=== PATIENT | male | born 1985 | race Caucasian/White ===

== ENCOUNTER 2018-12-29 11:08 | Observation (INO) ==
[2018-12-29] MEDS ORDERED: SODIUM CHLORIDE 0.9% 1000ML 500 ML IV ONE (11:17)
[2018-12-29 11:38] LABS: Basophils # (auto) 0.02 K/uL (0-0.2); Basophils % (auto) 0.2 %; Eosinophils # (auto) 0.02 K/uL (0-0.5); Eosinophils % (auto) 0.2 %; Hematocrit (blood only) 38.7 % (42-52); Hemoglobin 13.5 g/dL (14.0-18.0); Immature Granulocytes # (auto) 0.04 K/uL (0.00-0.02); Immature Granulocytes % (auto) 0.4 %; Lymphocytes # (auto) 0.55 K/uL (1.2-3.4); Lymphocytes % (auto) 5.3 %; Mean Corpuscular Hgb Conc 34.9 g/dL (32-36); Mean Corpuscular Volume 85.1 fL (80-100); Mean Platelet Volume 11.3 fL (7.4-10.4); Monocytes # (auto) 0.28 K/uL (0.11-0.59); Monocytes % (auto) 2.7 %; Neutrophils # (auto) 9.47 K/uL (1.4-6.5); Neutrophils % (auto) 91.2 %; Platelet Count 177 K/uL (130-400); RDW Coefficient of Variation 13.7 % (11.5-14.5); RDW Standard Deviation 42.6 fL (36.4-46.3); Red Blood Count 4.55 M/uL (4.7-6.1); White Blood Count 10.38 K/uL (4.8-10.8)
--- NOTE | 2018-12-29 11:42 | XRay Report ---
XR chest 1V portable HISTORY: 33 years-old Male Chest Pain acute atypical chest pain COMPARISON: CT abdomen and pelvis 11/28/2018 TECHNIQUE: Portable AP view of the chest FINDINGS: The cardiac silhouette is normal. Mild asymmetric prominence of the right hilum. Right internal jugul ar Ovxvgv-e-Qzqm catheter is noted with distal tip terminating in the expected location of the proxim al SVC. No pneumothorax, pleural effusion, focal airspace consolidation or overt pulmonary edema. Bon es appear grossly intact. IMPRESSION: 1. Mild asymmetric right hilar prominence may be projectional. Underlying adenopathy is also within t he differential. 2. Study is otherwise unremarkable. The above report was generated using voice recognition software. It may contain grammatical, syntax o r spelling errors. Electronically signed by: Nick May M.D. 12/29/2018 11:41 AM
[2018-12-29 11:56] LABS: Alanine Aminotransferase 37 U/L (12-78); Albumin Level 3.4 gm/dl (3.4-5.0); Aspartate Aminotransferase 28 U/L (15-37); BUN Creatinine Ratio 23.7 (10-20); Blood Urea Nitrogen 15 mg/dl (7-18); Calcium 8.6 mg/dl (8.5-10.1); Carbon Dioxide 20 mmol/L (21-32); Chloride 103 mmol/L (98-107); Creatinine Clr Calc Pharmacy 211.4 ml/min; Est GFR (African American) > 150.0; Est GFR (Non-African American) 129.5; Glucose 87 mg/dl (70-99); Potassium 3.7 mmol/L (3.5-5.1); Sodium 138 mmol/L (136-145)
[2018-12-29 12:07] LABS: Albumin Globulin Ratio 1.1 (0.9-2); Alkaline Phosphatase 263 U/L (45-117); Bilirubin,Total 0.7 mg/dl (0.2-1); Globulin 3.1 gm/dl (2.5-4.0); Total Protein 6.5 gm/dl (6.4-8.2); Troponin I < 0.015 ng/ml (0-0.045)
[2018-12-29] MEDS ORDERED: OXYCODONE HCL IR 5 MG TAB (IMMEDIATE RELEASE) PO STA (13:32)
[2018-12-29 14:01] LABS: INR 1.1 (0.9-1.1); Partial Thromboplastin Time 28.3 Seconds (21.0-31.0); Prothrombin Time 11.4 Seconds (9.0-12.0)
--- NOTE | 2018-12-29 14:07 | History & Physical Report ---
Date of Service December 29, 2018 Assessment & Plan (1) Paroxysmal supraventricular tachycardia: This is a 33yo M with a PMH of recent pancreatic cancer diagnosis with peritoneal mets who presents from outpatient surgery after an episode of SVT that has since resolved. -Found to have HR of 136 with EKG thought to be SVT -Given Labetalol, amiodarone and Cardizem before adenosine was tried and patient converted to normal sinus rhythm -Asymptomatic now. Possibly an effect of anesthetic given for port placement -Observe on telemetry overnight -2D echo ordered. Routine cardiology consult to discuss possibility of anticoagulation in setting of active cancer (2) Pancreatic cancer metastasized to intra-abdominal lymph node: Pancreatic tumor found on imaging in late November, EUS performed at the beginning of December with cytology was consistent with poorly differentiated adenocarcinoma of the pancreas -Has plans to start systemic chemotherapy with modified FOLFIRINOX -Follows with Dr. Roberts of [facility] -Continue home pain medication Oxycodone 5mg Q4H PRN -Full liquid diet, Boost TIDM Code status: FULL PCP: Becca Dispo: [facility]. Plan to return home once medically stable. Patient seen in collaboration with Dr. Mayer. Please see addendum. History of Present Illness Chief Complaint: SVT post-operatively Primary Care Provider: Gustavo Hudson MD This is a 33yo M with a PMH of recent pancreatic cancer diagnosis with peritoneal mets who presents from outpatient surgery after an episode of tachycardia. Patient was having Aport placed at [facility]. Became tachycardic following procedure and an EKG revealed SVT. Received Labetalol, amiodarone and cardizem before adenosine was tried and patient converted to normal sinus rhythm. Patient was brought to the ED for further treatment and evaluation. Was found to have pancreatic tumor on EUS at the beginning of this month. Cytology was consistent with poorly differentiated adenocarcinoma of the pancreas. Has plans to start systemic chemotherapy with modified FOLFIRINOX. Follows with Dr. [facility]. Denies any history of cardiac arrhythmias. No surgical history prior to port insertion. Denies fever, chills, headache, lightheadedness, sore throat, cough, chest pain, palpitations, shortness of breath, nausea, vomiting, dysuria, constipation or diarrhea. Has pain with eating any type of solid foods so has been supplementing with liquids and protein shakes. Current pain regimen includes Oxycodone 5mg Q4H PRN. Allergies Allergy/AdvReac Type Severity Reaction Status Date / Time No Known Allergies Allergy Verified 12/29/18 12:00 Home Medications Home Medications Medication Instructions Recorded Confirmed Type dicyclomine 10 mg PO TID PRN 12/01/18 12/29/18 History acetaminophen [Tylenol Extra 2,000 mg PO Q6H PRN 12/29/18 12/29/18 History Strength] omeprazole 40 mg PO DAILY PRN 12/29/18 12/29/18 History oxycodone 5 mg PO Q4H PRN 12/29/18 12/29/18 History polyethylene glycol 3350 [Miralax] 17 g PO DAILY PRN 12/29/18 12/29/18 History sucralfate 1 g PO BID 12/29/18 12/29/18 History Past Med/Surg History Medical History Pancreatic cancer metastasized to intra-abdominal lymph node (Chronic) Abnormal CT of the abdomen (Chronic) Done for LLQ pain evaluation. Showed innumerable peritoneal and mesenteric nodules. Possible pancreatitis, possible diverticulitis, though both ruled "unlikely" per radiology. Surgical History No pertinent past surgical history (Chronic) Family History Father FHx: coronary artery disease, Onset Age: 65 CABG X3 Grandfather (Maternal) Colorectal cancer Grandmother (Maternal) Breast cancer Social History Preferred Language: Thai Communication Ability: Effective Beliefs That Will Affect Care: None Current Living Situation: Significant Other Other Information That Helps Us Care for You: No Feels Safe at Home: Yes Safety Concerns: Feels Safe At This Time Smoking Status: Never smoker Second Hand Exposure: No Hx Alcohol Use: Yes Alcohol type: beer Hx Substance Use: No Review of Systems Review of Systems: At least ten systems reviewed and negative except as noted in the HPI. Physical Exam Physical Exam: General Appearance: WD/WN, no apparent distress, resting comforably Head: normocephalic, atraumatic Eyes: normal inspection, PERRL, EOMI ENT: hearing grossly normal, pharynx normal (dry mucous membranes) Neck: supple, no JVD, no adenopathy Respiratory/Chest: Port placement R chest wall. Lungs clear to auscultation. No wheezes, rales or rhonci. No respiratory distress or accessory muscle use Cardiovascular: regular rate, rhythm, no murmur, normal peripheral pulses Abdomen/GI: normal bowel sounds, soft, non-tender to palpation Extremities/Musculoskelatal: normal inspection, no calf tenderness, normal capillary refill, no pedal edema Neurologic/Psych: alert, normal mood/affect, oriented x 3 Skin: normal color, warm/dry Results & Data Vital Signs (Past 12 Hours) Vital Signs Temp Pulse Resp BP Pulse Ox 12/29/18 13:31 95 H 18 128/93 12/29/18 13:30 96 H 24 12/29/18 13:00 85 18 136/82 12/29/18 12:30 85 18 129/80 94 12/29/18 12:00 84 19 119/77 96 12/29/18 11:38 98 12/29/18 11:32 84 18 95 12/29/18 11:31 84 21 140/85 95 12/29/18 11:30 86 18 96 12/29/18 11:26 87 97 12/29/18 11:16 37.0 C 84 16 138/83 94 12/29/18 11:15 87 15 96 12/29/18 11:13 85 20 138/83 97 Laboratory Results Short CBC 12/29/18 Range/Units 11:15 WBC 10.38 (4.8-10.8) K/uL Hgb 13.5 L (14.0-18.0) g/dL Hct 38.7 L (42-52) % Plt Count 177 (130-400) K/uL BMP 12/29/18 11:15 Sodium 138 Potassium 3.7 Chloride 103 Carbon Dioxide 20 L BUN 15 Creatinine 0.63 Glucose 87 Calcium 8.6 Cardiac Enzymes 12/29/18 Range/Units 11:15 Troponin I < 0.015 (0-0.045) ng/ml Liver Function 12/29/18 Range/Units 11:15 Total Bilirubin 0.7 (0.2-1) mg/dl AST 28 (15-37) U/L ALT 37 (12-78) U/L Alkaline Phosphatase 263 H (45-117) U/L Albumin 3.4 (3.4-5.0) gm/dl Diagnostic Findings CXR: IMPRESSION: 1. Mild asymmetric right hilar prominence may be projectional. Underlying adenopathy is also within the differential. 2. Study is otherwise unremarkable. ECG Rhythm: normal sinus Findings: + nonspecific-ST abn Supervising Physician Co-Signing Physician Notes I have seen and examined the patient with physician dairy and food laboratory assistant and agree with the assessment and plan as above and would like to comment that during outpatient placement of port placement with plans for chemotherapy because of pancreatitic cancer, the patient likely had SVT secondary to anesthesia. multiple medications were given to attempt to break the SVT in the immediate post-op care: Labetalol, amiodarone and Cardizem before adenosine tried which converted patient in sinus rhythm. patient continues to be in sinus rhythm at this time. is placed on observation on telemetry in case patient has any other runs of arrhythmia. echocardiogram and cardiology consult have been requested. if patient continues to be in rhythm, it is unlikely that he would be placed on systemic anticoagulation On exam General: no acute distress Lungs: clear to auscultation bilaterally, no wheezing abdomen: soft,nontender, positive bowel sounds Extremities: move all extremities neuro: no cranial nerve deficits, patient has right eye droop that is chronic agree with other assessment and plans as documented by physician dairy and food laboratory assistant
--- NOTE | 2018-12-29 14:47 | Emergency Department Note ---
Entered by Vanessa Srinivasan acting as a scribe for History of Present Illness General Chief complaint: Cardiac Assessment Stated complaint: svt/aflut Time Seen by Provider: 12/29/18 11:16 Source: patient and EMS Mode of arrival: EMS Limitations: no limitations History of Present Illness Provider complaint: SVT Onset (ago): hour(s) (OXYGEN SYSTEM TESTER) Location: chest Pain Consistency: + other (episode) Quality: + other (SVT) Relieved By: + medication Treatments prior to arrival: other (adenosine, cardizem, labetalol) The patient is a 33 year old male who presents to the Emergency Room via EMS f ollowing an episode of SVT that occurred OXYGEN SYSTEM TESTER. The patient reports that he has a history of metastatic pancreatic cancer and that he did have a port placed this morning at [facility]. He explains that there were no complications but that following the surgery, he had complex tachycardia. EMS notes that they did obtain an EKG which showed SVT. They explain that he was then referred to the ER. Per EMS, the patient was given adenosine, Cardizem and labetalol which did help. Home Medications Home Medications Medication Instructions Recorded Confirmed Type dicyclomine 10 mg PO TID PRN 12/01/18 12/29/18 History acetaminophen [Tylenol Extra 2,000 mg PO Q6H PRN 12/29/18 12/29/18 History Strength] omeprazole 40 mg PO DAILY PRN 12/29/18 12/29/18 History oxycodone 5 mg PO Q4H PRN 12/29/18 12/29/18 History polyethylene glycol 3350 [Miralax] 17 g PO DAILY PRN 12/29/18 12/29/18 History sucralfate 1 g PO BID 12/29/18 12/29/18 History Allergies Allergy/AdvReac Type Severity Reaction Status Date / Time No Known Allergies Allergy Verified 12/29/18 12:00 Past Med/Surg History Medical History Pancreatic cancer Abnormal CT of the abdomen Done for LLQ pain evaluation. Showed innumerable peritoneal and mesenteric nodules. Possible pancreatitis, possible diverticulitis, though both ruled "unlikely" per radiology. Diverticular disease POSSIBLE. Pancreatitis POSSIBLE. Surgical History No history of previous surgery Family History Father FHx: coronary artery disease, Onset Age: 65 CABG X3 Social History Preferred Language: Arabic Communication Ability: Effective Beliefs That Will Affect Care: None Current Living Situation: Significant Other Other Information That Helps Us Care for You: No Feels Safe at Home: Yes Safety Concerns: Feels Safe At This Time Smoking Status: Never smoker Second Hand Exposure: No Hx Alcohol Use: Yes Alcohol type: beer Hx Substance Use: No Review of Systems See HPI for pertinent positives & negatives. and A total of 10 systems reviewed and were otherwise negative Physical Exam Vital Signs Vital Signs - 24 hr 12/29/18 11:13 12/29/18 11:15 12/29/18 11:16 Temperature 37.0 C Temperature Source Oral Sepsis Recent Fever Within 48 Hours No Sepsis Action Taken by Nursing No Action Required Pulse Rate 85 87 84 Pulse Rate from SpO2 Sensor 85 88 Pulse Rhythm Respiratory Rate 20 15 16 Respiratory Effort / Characteristics Respiratory Depth Respiratory Pattern Blood Pressure 138/83 138/83 Blood Pressure Mean 101 101 Pulse Oximetry 97 96 94 Oxygen Delivery Method Room Air 12/29/18 11:26 12/29/18 11:30 12/29/18 11:31 Temperature Temperature Source Sepsis Recent Fever Within 48 Hours Sepsis Action Taken by Nursing Pulse Rate 87 86 84 Pulse Rate from SpO2 Sensor 85 84 Pulse Rhythm Regular Respiratory Rate 18 21 Respiratory Effort / Characteristics Respiratory Depth Respiratory Pattern Blood Pressure 140/85 Blood Pressure Mean 103 Pulse Oximetry 97 96 95 Oxygen Delivery Method Room Air 12/29/18 11:32 12/29/18 11:38 12/29/18 12:00 Temperature Temperature Source Sepsis Recent Fever Within 48 Hours Sepsis Action Taken by Nursing Pulse Rate 84 84 Pulse Rate from SpO2 Sensor 84 84 Pulse Rhythm Respiratory Rate 18 19 Respiratory Effort / Characteristics Respiratory Depth Respiratory Pattern Blood Pressure 119/77 Blood Pressure Mean 91 Pulse Oximetry 95 98 96 Oxygen Delivery Method Room Air 12/29/18 12:30 12/29/18 13:00 12/29/18 13:30 Temperature Temperature Source Sepsis Recent Fever Within 48 Hours Sepsis Action Taken by Nursing Pulse Rate 85 85 96 H Pulse Rate from SpO2 Sensor 84 Pulse Rhythm Respiratory Rate 18 18 24 Respiratory Effort / Characteristics Respiratory Depth Respiratory Pattern Blood Pressure 129/80 136/82 Blood Pressure Mean 96 100 Pulse Oximetry 94 Oxygen Delivery Method 12/29/18 13:31 12/29/18 14:04 Temperature Temperature Source Sepsis Recent Fever Within 48 Hours Sepsis Action Taken by Nursing Pulse Rate 95 H Pulse Rate from SpO2 Sensor Pulse Rhythm Respiratory Rate 18 Respiratory Effort / Characteristics Non-Labored Spontaneous Respiratory Depth Normal Respiratory Pattern Regular Blood Pressure 128/93 Blood Pressure Mean 104 Pulse Oximetry Oxygen Delivery Method Room Air General: Non-ill appearing young male in no acute distress. HEENT: Normal cephalic atraumatic. Pupils are equal round and reactive to light. Extraocular movements are intact. Oropharynx is pink with moist mucous membranes. No swelling of the mouth lips or tongue. Neck: Supple with a midline trachea. No meningeal signs or stiffness, no JVD or bruits. No Stridor. Chest: Clear to auscultation bilaterally. No wheezes or rhonchi. No increased wo rk of breathing. Bandage in right upper chest from port placement today. Heart: regular rate and rhythm. Abdomen: Soft nontender, nondistended without rebound guarding or rigidity. Extremities: No cyanosis clubbing or edema. No calf tenderness or asymmetry Spine/Back. Non tender to palpation. No CVA tenderness Skin: Good turgor without rashes. Neurologic exam: Cranial nerves two through 12 are intact. Motor and sensation are intact and symmetrical throughout. Course 1109: Past medical records reviewed. The patient was evaluated in room A10. A complete history and physical examination was performed. 1227: I reviewed the patient's case with Magalis Garcia PA-C - [facility] Hospitalist. She will evaluate the patient for further management. Administered Medications Discontinued Medications Sodium Chloride (Nss 1000ml) 500 mls @ 999 mls/hr IV .Q31M ONE Stop: 12/29/18 11:47 Last Infusion: 12/29/18 12:04 Dose: 0 mls/hr Documented by: [id number] Admin: 12/29/18 11:31 Dose: 999 mls/hr Documented by: [id number] Oxycodone HCl (Roxicodone Immediate Rel) 5 mg PO NOW STA Stop: 12/29/18 13:33 Last Admin: 12/29/18 13:47 Dose: 5 mg Documented by: [id number] Medical Decision Making Differential Diagnosis Differential diagnosis includes: acute coronary syndrome, arrhythmia, melvin ctrolyte and metabolic abnormality. Medical Records Attestation: I reviewed the patient's medical records. Home Medications Current Medication List: was personally reviewed by me Laboratory Data Attestation: I reviewed the patient's lab results. Result diagrams: 12/29/18 11:15 12/29/18 11:15 Lab Results 12/29/18 12/29/18 Range/Units 11:15 11:15 WBC 10.38 (4.8-10.8) K/uL RBC 4.55 L (4.7-6.1) M/uL Hgb 13.5 L (14.0-18.0) g/dL Hct 38.7 L (42-52) % MCV 85.1 (80-100) fL MCH 29.7 (25-34) pg MCHC 34.9 (32-36) g/dL RDW Std Deviation 42.6 (36.4-46.3) fL RDW Coeff of Jennie 13.7 (11.5-14.5) % Plt Count 177 (130-400) K/uL MPV 11.3 H (7.4-10.4) fL Immature Gran % (Auto) 0.4 % Neut % (Auto) 91.2 % Lymph % (Auto) 5.3 % [place] % (Auto) 2.7 % Eos % (Auto) 0.2 % Baso % (Auto) 0.2 % Immature Gran # (Auto) 0.04 H (0.00-0.02) K/uL Neut # (Auto) 9.47 H (1.4-6.5) K/uL Lymph # (Auto) 0.55 L (1.2-3.4) K/uL [place] # (Auto) 0.28 (0.11-0.59) K/uL Eos # (Auto) 0.02 (0-0.5) K/uL Baso # (Auto) 0.02 (0-0.2) K/uL Sodium 138 (136-145) mmol/L Potassium 3.7 (3.5-5.1) mmol/L Chloride 103 (98-107) mmol/L Carbon Dioxide 20 L (21-32) mmol/L Anion Gap 15.0 H (3-11) BUN 15 (7-18) mg/dl Creatinine 0.63 (0.6-1.4) mg/dl Est Cr Clr Drug Dosing 211.4 ml/min Est GFR ( Amer) > 150.0 Est GFR (Non-Af Amer) 129.5 BUN/Creatinine Ratio 23.7 H (10-20) Glucose 87 (70-99) mg/dl Calcium 8.6 (8.5-10.1) mg/dl Total Bilirubin 0.7 (0.2-1) mg/dl AST 28 (15-37) U/L ALT 37 (12-78) U/L Alkaline Phosphatase 263 H (45-117) U/L Troponin I < 0.015 (0-0.045) ng/ml Total Protein 6.5 (6.4-8.2) gm/dl Albumin 3.4 (3.4-5.0) gm/dl Globulin 3.1 (2.5-4.0) gm/dl Albumin/Globulin Ratio 1.1 (0.9-2) Lipase 97 (73-393) U/L TSH 1.710 (0.300-4.500) uIu/ml Imaging Data Radiologist's Impression: Radiology results as stated below per my review and the radiologist's interpretation: XR chest 1V portable HISTORY: 33 years-old Male Chest Pain acute atypical chest pain COMPARISON: CT abdomen and pelvis 11/28/2018 TECHNIQUE: Portable AP view of the chest FINDINGS: The cardiac silhouette is normal. Mild asymmetric prominence of the right hilum. Right internal jugular Dsmncn-v-Smdh catheter is noted with distal tip terminating in the expected location of the proximal SVC. No pneumothorax, pleural effusion, focal airspace consolidation or overt pulmonary edema. Bones appear grossly intact. IMPRESSION: 1. Mild asymmetric right hilar prominence may be projectional. Underlying a denopathy is also within the differential. 2. Study is otherwise unremarkable. The above report was generated using voice recognition software. It may contain grammatical, syntax or spelling errors. Electronically signed by: Nick May M.D. 12/29/2018 11:41 AM ECG Data Attestation: I personally reviewed and interpreted this ECG as follows: Indication: tachycardia Rate (beats per minute): 88 Rhythm: normal sinus Findings: + other (non-specific T wave abnormality); no ectopy Comparison ECG Date: no prior available Blood Pressure Blood Pressure Findings: Normal blood pressure Blood Pressure Disposition: did not require urgent referral MDM Narrative This patient comes in as described above. The paramedics call and talk to me for medical command. Apparently he just had a port placed today and had anesthesia. After anesthesia he was tachycardic and was given labetalol 100 mg, loaded with IV amiodarone, and was also given IV Cardizem. Despite this the patient remained tachycardic they transmitted me the EKG and it is a regular narrow complex tachycardia consistent with PSVT in light of this and I recommended that they give him adenosine 6 mg IV. They had already tried vagal maneuvers. This worked and the patient converted. He has remained stable. He has had no chest pain or shortness of breath at any point even when his heart rate was fast. He has no significant electrolyte or metabolic abnormalities. Chest x-ray was clear and there is no pneumothorax. His EKG says some nonspecific T wave abnormalities. Given the patient has been loaded with multiple cardiac meds and had this event. I do think it is most prudent to o bserve him to rule out any other cardiac or other etiology causing his symptoms. Again, hiss asymptomatic and has no chest pain or shortness of breath. I think pulmonary embolism will be unlikely. I have consult the [facility] see him in the ER for these measures. Impression & Plan Paroxysmal supraventricular tachycardia, Pancreatic cancer Discharge Plan Visit Data Chief Complaint: Cardiac Assessment Stated Complaint: svt/aflut ED Provider: Seb Alexander Discharge Problem: Paroxysmal supraventricular tachycardia, Pancreatic cancer Patient Disposition: Being Evaluated by Hospitalist Forms Stand Alone Forms: My [facility] Prescriptions Prescriptions: No Action dicyclomine 10 mg Capsule 10 mg PO TID PRN (Reason: STOMACH PAIN) RF: 0 polyethylene glycol 3350 [Miralax] 17 gram Powder In Packet 17 g PO DAILY PRN (Reason: Constipation) RF: 0 sucralfate 1 gram tablet 1 g PO BID RF: 0 acetaminophen [Tylenol Extra Strength] 500 mg Tablet 2,000 mg PO Q6H PRN (Reason: Pain) RF: 0 oxycodone 5 mg Tablet 5 mg PO Q4H PRN (Reason: Pain) RF: 0 omeprazole 40 mg capsule,delayed release(DR/EC) 40 mg PO DAILY PRN (Reason: Dyspepsia) RF: 0 Referrals Referrals: uGstavo Hudson MD [Primary Care Provider] - The scribe's documentation has been prepared under my direction and personally reviewed by me in its entirety. I confirm that the note above accurately reflect s all work, treatment, procedures, and medical decision making performed by me.
[2018-12-29] MEDS ORDERED: POLYETHYLENE (MIRALAX) 17 GM PACK PO PRN (15:54)
[2018-12-29] MEDS ORDERED: ACETAMINOPHEN 500 MG TAB PO PRN (15:54)
[2018-12-29] MEDS ORDERED: DICYCLOMINE HCL 10 MG CAP PO PRN (15:54)
[2018-12-29] MEDS ORDERED: ONDANSETRON INJ 2 MG/ML 2 ML VIAL IV PRN (15:54)
[2018-12-29] MEDS ORDERED: SODIUM CHLORIDE 0.9% 1000ML 1,000 ML IV SCH (16:10)
[2018-12-29] MEDS: OXYCODONE HCL IR 5 MG TAB (IMMEDIATE RELEASE) PO PRN ×2 (17:21→21:19)
[2018-12-29] MEDS: IBUPROFEN 200 MG TAB PO PRN (21:19)
[2018-12-29] MEDS: SUCRALFATE 1 GM TAB PO SCH (21:20)
[2018-12-30] MEDS: OXYCODONE HCL IR 5 MG TAB (IMMEDIATE RELEASE) PO PRN ×2 (01:49→06:44)
[2018-12-30] MEDS: IBUPROFEN 200 MG TAB PO PRN ×2 (04:41→11:22)
[2018-12-30] MEDS: SUCRALFATE 1 GM TAB PO SCH (07:47)
[2018-12-30 08:30] LABS: Hematocrit (blood only) 38.1 % (42-52); Hemoglobin 13.1 g/dL (14.0-18.0); Mean Corpuscular Hgb Conc 34.4 g/dL (32-36); Mean Corpuscular Volume 84.7 fL (80-100); Mean Platelet Volume 11.6 fL (7.4-10.4); Platelet Count 186 K/uL (130-400); RDW Coefficient of Variation 13.9 % (11.5-14.5); White Blood Count 9.02 K/uL (4.8-10.8)
[2018-12-30 08:59] LABS: BUN Creatinine Ratio 21.1 (10-20); Blood Urea Nitrogen 12 mg/dl (7-18); Calcium 9.1 mg/dl (8.5-10.1); Carbon Dioxide 26 mmol/L (21-32); Chloride 101 mmol/L (98-107); Creatinine Clr Calc Pharmacy 222.1 ml/min; Est GFR (African American) > 150.0; Est GFR (Non-African American) 136.9; Glucose 90 mg/dl (70-99); Potassium 3.8 mmol/L (3.5-5.1); Sodium 136 mmol/L (136-145)
[2018-12-30] MEDS ORDERED: PANTOprazole 40 MG TAB PO SCH (09:00)
--- NOTE | 2018-12-30 10:22 | Cardiology Consultation ---
Date of Consultation December 30, 2018 Assessment & Plan (1) Paroxysmal supraventricular tachycardia: (2) Abnormal ECG: (3) Elevated heart rate with elevated blood pressure without diagnosis of hypertension: Patient admitted with diagnosis of paroxysmal supraventricular tachycardia, however, ECG nor telemetry strip was recorded during time of dysrhythmia. Dysrhythmia possibly induced with anesthesia or perhaps with insertion of central venous catheter. No recurrent dysrhythmias since adm ission. Borderline elevated heart rate and mildly elevated blood pressure I suspect related to chronic low back and abdominal discomfort. Recommend beta- jorge therapy, metoprolol 25 mg twice daily. Without a confirmed diagnosis of atrial fibrillation or atrial flutter there is no indication for anticoagulation from a cardiovascular perspective at this time. Serum magnesium level ordered. Give 20 mEq of potassium now to maintain a serum potassium level greater than 4.0. Recommend outpatient cardiology follow-up in 2 weeks for reassessment. Thank you for allowing to participate in the care of your patient. History of Present Illness Reason for Consultation: PSVT Requesting Physician: Dr. Gabo Mayer Attending Physician: Gabo Mayer MD History of Present Illness 33-year-old male recently diagnosed with pancreatic cancer. Patient undergoing chemo port placement yesterday where he reportedly developed PSVT while under anesthesia. Per records, treated with labetalol, esmolol, adenosine, and amiodarone. Sinus rhythm upon arrival to the ER. Mildly hypertensive. Denies prior history of palpitations, lightheadedness, dizziness, chest discomfort, or unusual shortness of breath. No prior history of dysrhythmia, coronary disease, congestive heart failure, or rheumatic fever as a child. Preliminary review of resting 2D transthoracic echocardiogram demonstrates preserved LV systolic function, normal chamber size, no significant valvular abnormalities. Patient currently resting comfortably and asymptomatic. TSH and electrolytes within normal limits however magnesium was not assessed. Troponin negative x1 set. ECG demonstrates diffuse nonspecific T wave abnormality. No old ECG for comparison. Currently asymptomatic from a cardiovascular standpoint. Reports chronic lumbar pain related to pancreatic cancer. Sleeps on a heating pad. Can tolerate a liquid diet although notes a continuous low level of abdominal and low back discomfort. Allergies Allergy/AdvReac Type Severity Reaction Status Date / Time No Known Allergies Allergy Verified 12/29/18 12:00 Home Medications Home Medications Medication Instructions Recorded Confirmed Type dicyclomine 10 mg PO TID PRN 12/01/18 12/29/18 History acetaminophen [Tylenol Extra 2,000 mg PO Q6H PRN 12/29/18 12/29/18 History Strength] omeprazole 40 mg PO DAILY PRN 12/29/18 12/29/18 History oxycodone 5 mg PO Q4H PRN 12/29/18 12/29/18 History polyethylene glycol 3350 [Miralax] 17 g PO DAILY PRN 12/29/18 12/29/18 History sucralfate 1 g PO BID 12/29/18 12/29/18 History metoprolol tartrate 25 mg PO BID 30 Days #60 tab 12/30/18 Rx Patient History Medical History Pancreatic cancer metastasized to intra-abdominal lymph node (Chronic) Abnormal CT of the abdomen (Chronic) Done for LLQ pain evaluation. Showed innumerable peritoneal and mesenteric nodules. Possible pancreatitis, possible diverticulitis, though both ruled "unlikely" per radiology. Surgical History No pertinent past surgical history (Chronic) Family History Father FHx: coronary artery disease, Onset Age: 65 CABG X3 Grandfather (Maternal) Colorectal cancer Grandmother (Maternal) Breast cancer Social History Preferred Language: Persian Communication Ability: Effective Beliefs That Will Affect Care: None Current Living Situation: Significant Other Other Information That Helps Us Care for You: No Feels Safe at Home: Yes Safety Concerns: Feels Safe At This Time Smoking Status: Never smoker Second Hand Exposure: No Hx Alcohol Use: Yes Alcohol type: beer Hx Substance Use: No Physical Exam Physical Exam: General: NAD, AAO x3, well nourished. HEENT: Normocephalic. Atraumatic. Conjunctiva pink, no scleral icterus. Neck: No carotid bruits, the carotid upstrokes are brisk. No JVD. No HJR Heart: Regular normal S-1 and S-2 no S-3 or S-4 gallop. No murmurs or rub appreciated. PMI is not displaced. No RV heave. Lungs: Clear bilateral without rales , rhonchi, or wheeze. Abdomen: Diffuse tenderness, normal bowel sounds. Soft. No masses or organomegaly. No abdominal bruits. Extremities: No clubbing, cyanosis, or edema. Pulses: radial=2/4, Dorsalis pedis =2/4, posterior tibial=2/4. Neuro: Cranial nerves grossly intact. No focal motor deficit. Results & Data Vital Signs (Past 12 Hours) Vital Signs Temp Pulse Pulse Resp BP BP Pulse Ox 12/30/18 08:33 86 12/30/18 08:00 36.5 C 90 19 153/104 H 99 12/30/18 03:59 36.8 C 81 16 154/99 H 97 12/30/18 01:58 86 12/29/18 23:08 36.8 C 87 18 165/108 H 97 Laboratory Results Laboratory Results - last 24 hr 12/29/18 12/29/18 12/29/18 11:15 11:15 11:15 WBC 10.38 RBC 4.55 L Hgb 13.5 L Hct 38.7 L MCV 85.1 MCH 29.7 MCHC 34.9 RDW Std Deviation 42.6 RDW Coeff of Jennie 13.7 Plt Count 177 MPV 11.3 H Immature Gran % (Auto) 0.4 Neut % (Auto) 91.2 Lymph % (Auto) 5.3 Merrick % (Auto) 2.7 Eos % (Auto) 0.2 Baso % (Auto) 0.2 Immature Gran # (Auto) 0.04 H Neut # (Auto) 9.47 H Lymph # (Auto) 0.55 L Merrick # (Auto) 0.28 Eos # (Auto) 0.02 Baso # (Auto) 0.02 PT 11.4 INR 1.1 APTT 28.3 PTT Ratio 1.0 Sodium 138 Potassium 3.7 Chloride 103 Carbon Dioxide 20 L Anion Gap 15.0 H BUN 15 Creatinine 0.63 Est Cr Clr Drug Dosing 211.4 Est GFR ( Amer) > 150.0 Est GFR (Non-Af Amer) 129.5 BUN/Creatinine Ratio 23.7 H Glucose 87 Calcium 8.6 Total Bilirubin 0.7 AST 28 ALT 37 Alkaline Phosphatase 263 H Troponin I < 0.015 Total Protein 6.5 Albumin 3.4 Globulin 3.1 Albumin/Globulin Ratio 1.1 Lipase 97 TSH 1.710 12/30/18 12/30/18 07:47 07:47 WBC 9.02 RBC 4.50 L Hgb 13.1 L Hct 38.1 L MCV 84.7 MCH 29.1 MCHC 34.4 RDW Std Deviation 43.0 RDW Coeff of Jennie 13.9 Plt Count 186 MPV 11.6 H Immature Gran % (Auto) Neut % (Auto) Lymph % (Auto) Merrick % (Auto) Eos % (Auto) Baso % (Auto) Immature Gran # (Auto) Neut # (Auto) Lymph # (Auto) Merrick # (Auto) Eos # (Auto) Baso # (Auto) PT INR APTT PTT Ratio Sodium 136 Potassium 3.8 Chloride 101 Carbon Dioxide 26 Anion Gap 9.0 BUN 12 Creatinine 0.55 L Est Cr Clr Drug Dosing 222.1 Est GFR ( Amer) > 150.0 Est GFR (Non-Af Amer) 136.9 BUN/Creatinine Ratio 21.1 H Glucose 90 Calcium 9.1 Total Bilirubin AST ALT Alkaline Phosphatase Troponin I Total Protein Albumin Globulin Albumin/Globulin Ratio Lipase TSH
[2018-12-30] MEDS ORDERED: METOPROLOL TARTRATE 25 MG TAB PO SCH (10:30)
[2018-12-30] MEDS: POTASSIUM CHLORIDE / WTR 10 MEQ/100 ML PLCT IV SCH ×2 (11:00→11:52)
--- NOTE | 2018-12-30 12:02 | Hospitalist Progress Note ---
Date of Service December 30, 2018 Assessment & Plan (1) Paroxysmal supraventricular tachycardia: - 33yo M with a PMH of recent pancreatic cancer diagnosis with peritoneal mets who presents from outpatient surgery after an episode of tachycardia. Patient was having Aport placed at [facility]. Became tachycardic following procedure and an EKG revealed SVT. Found to have HR of 136 with EKG thought to be SVT. Received Labetalol, amiodarone and cardizem before adenosine was tried and patient converted to normal sinus rhythm. Patient was brought to the ED for further treatment and evaluation. -as per cardiology service Dysrhythmia possibly induced with anesthesia or perhaps with insertion of central venous catheter. No recurrent dysrhythmias since admission. -echocardiogram with normal ejection fraction -cardiology service started metoprolol 25 mg twice daily -Serum magnesium level is normal -cardiology service also gave 20 mEq of potassium -Discharge to home Patient should follow up with primary care doctor -Patient should call to confirm availability of cardiology appointment (Dr. Vazquez recommend 2 week followup and being worked on by [facility] scheduling line) [facility] Address: [address] [place] [address], [place] [address] (2) Pancreatic cancer metastasized to intra-abdominal lymph node: Pancreatic tumor found on imaging in late November, EUS performed at the beginning of December with cytology was consistent with poorly differentiated adenocarcinoma of the pancreas -Has plans to start systemic chemotherapy with modified FOLFIRINOX -Follows with Dr. Roberts of [facility] onc group -next Oncology follow up 01/02/2019 4:00 PM Provider Lashawn Gandhi MS Department Hematology/Oncology, [facility] Other appointments 01/20/2019 1:00 PM Provider Annmarie Robbins MD Department Dermatology [facility] Discharge Diagnosis Paroxysmal supraventricular tachycardia, Pancreatic cancer Subjective patients heart rate in the 80 beats per minute. patient denies lightheadedness of dizziness. normal sinus on telemetry monitoring. we discussed cardiology recommendations and discharge plan. no acute pain at this time. breathing comfortably on room air. no vomiting from the liquid diet Physical Exam Constitutional: WD/WN, vitals as above Eyes: PERRL, conjunctivae normal, anicteric sclerae EOM intact bilaterally Neck: trachea midline, no thyromegaly normal visual inspection Respiratory: normal respiratory effort, lungs clear to auscultation normal respiratory effort Cardiovascular: RRR, no murmur, no edema Gastrointestinal (Abdomen): normal bowel sounds, soft, nontender, no hepatosplenomegaly Musculoskeletal: Head/Neck/Chest: normocephalic and head atraumatic Neurologic: CN's II-XI intact bilaterally Cranial Nerves: PERRL and EOM intact bilaterally (chronic right eyelid droop) Psychiatric: A+Ox3, euthymic affect Results & Data Vital Signs (Past 12 Hours) Vital Signs Temp Pulse Pulse Resp BP BP Pulse Ox 12/30/18 10:57 82 143/82 H 12/30/18 08:33 86 12/30/18 08:00 36.5 C 90 19 153/104 H 99 12/30/18 03:59 36.8 C 81 16 154/99 H 97 12/30/18 01:58 86
--- NOTE | 2018-12-30 12:18 | Discharge Summary ---
Date of Service December 30, 2018 Admission HPI Per Admitting Provider This is a 33yo M with a PMH of recent pancreatic cancer diagnosis with peritoneal mets who presents from outpatient surgery after an episode of tachycardia. Patient was having Aport placed at [facility]. Became tachycardic following procedure and an EKG revealed SVT. Received Labetalol, amiodarone and cardizem before adenosine was tried and patient converted to normal sinus rhythm. Patient was brought to the ED for further treatment and evaluation. Was found to have pancreatic tumor on EUS at the beginning of this month. Cytology was consistent with poorly differentiated adenocarcinoma of the pancre as. Has plans to start systemic chemotherapy with modified FOLFIRINOX. Follows with Dr. Roberts of [facility] onc group. Denies any history of cardiac arrhythmias. No surgical history prior to port insertion. Denies fever, chills, headache, lightheadedness, sore throat, cough, chest pain, palpitations, shortness of breath, nausea, vomiting, dysuria, constipation or diarrhea. Has pain with eating any type of solid foods so has been supplementing with liquids and protein shakes. Current pain regimen includes Oxycodone 5mg Q4H PRN. Admission Exam Per Admitting Provider General Appearance: WD/WN, no apparent distress, resting comforably Head: normocephalic, atraumatic Eyes: normal inspection, PERRL, EOMI ENT: hearing grossly normal, pharynx normal (dry mucous membranes) Neck: supple, no JVD, no adenopathy Respiratory/Chest: Port placement R chest wall. Lungs clear to auscultation. No wheezes, rales or rhonci. No respiratory distress or accessory muscle use Cardiovascular: regular rate, rhythm, no murmur, normal peripheral pulses Abdomen/GI: normal bowel sounds, soft, non-tender to palpation Extremities/Musculoskelatal: normal inspection, no calf tenderness, normal capillary refill, no pedal edema Neurologic/Psych: alert, normal mood/affect, oriented x 3 Skin: normal color, warm/dry Principal Diagnosis Paroxysmal supraventricular tachycardia, Pancreatic cancer Discharge Data Allergies Allergy/AdvReac Type Severity Reaction Status Date / Time No Known Allergies Allergy Verified 12/29/18 12:00 Consultations 12/29/18 12:29 ED Decision to Admit Stat 12/29/18 15:54 Consult Cardiology Routine Hospital Course (1) Paroxysmal supraventricular tachycardia: - 33yo M with a PMH of recent pancreatic cancer diagnosis with peritoneal mets who presents from outpatient surgery after an episode of tachycardia. Patient was having Aport placed at [facility]. Became tachycardic following procedure and an EKG revealed SVT. Found to have HR of 136 with EKG thought to be SVT. Received Labetalol, amiodarone and cardizem before adenosine was tried and patient converted to normal sinus rhythm. Patient was brought to the ED for further treatment and evaluation. -as per cardiology service Dysrhythmia possibly induced with anesthesia or perhaps with insertion of central venous catheter. No recurrent dysrhythmias since admission. -echocardiogram with normal ejection fraction -cardiology service started metoprolol 25 mg twice daily -Serum magnesium level is normal -cardiology service also gave 20 mEq of potassium -Discharge to home Patient should follow up with primary care doctor -Patient should call to confirm availability of cardiology appointment (Dr. Vazquez recommend 2 week followup and being worked on by [facility] scheduling line) [facility] Address: [address] [place] [address], [place] [address] (2) Pancreatic cancer metastasized to intra-abdominal lymph node: Pancreatic tumor found on imaging in late November, EUS performed at the beginning of December with cytology was consistent with poorly differentiated adenocarcinoma of the pancreas -Has plans to start systemic chemotherapy with modified FOLFIRINOX -[facility] -next Oncology follow up 01/02/2019 4:00 PM Provider Lashawn Gandhi MS Department Hematology/Oncology, [facility] Other appointments 01/20/2019 1:00 PM Provider Annmarie Robbins MD Department Dermatology [facility] Discharge Diagnosis Paroxysmal supraventricular tachycardia, Pancreatic cancer Total Time Total Time Spent Total Time Spent (In Minutes): 40 minutes Total Time Includes: Examination of the Patient, Discharge Planning, Medication Reconciliation and Communication With Other Providers Discharge Plan Discharge Items Patient Disposition: Home - Self-Care Reason For Visit: SVT/AFLUT Discharge Diagnosis: Paroxysmal supraventricular tachycardia, Pancreatic cancer Condition: Good Discharge Goals: Improve disease control Activity: Resume your previous activity Non-emergency contact: Primary Care Provider Call non-emergency contact if: you have any medication questions Follow-up/Referrals: Gustavo Hudson MD [Primary Care Provider] - Diet: Full liquid Addtl Provider Instructions: Discharge to home Patient should follow up with primary care doctor Patient should call to confirm availability of cardiology appointment ((Dr. Vazquez recommend 2 week followup and being worked on by [facility])) [facility] [employer] Address: [address] [place] [address], [place] [address] Oncology follow up 01/02/2019 4:00 PM Provider Lashawn Gandhi MS Department Hematology/Oncology, [facility] 01/20/2019 1:00 PM Provider Annmarie Robbins MD Department Dermatology [facility] Prescriptions: New metoprolol tartrate 25 mg Tablet 25 mg PO BID 30 Days Qty: 60 RF: 0 Continued dicyclomine 10 mg Capsule 10 mg PO TID PRN (Reason: STOMACH PAIN) RF: 0 polyethylene glycol 3350 [Miralax] 17 gram Powder In Packet 17 g PO DAILY PRN (Reason: Constipation) RF: 0 sucralfate 1 gram tablet 1 g PO BID RF: 0 acetaminophen [Tylenol Extra Strength] 500 mg Tablet 2,000 mg PO Q6H PRN (Reason: Pain) RF: 0 oxycodone 5 mg Tablet 5 mg PO Q4H PRN (Reason: Pain) RF: 0 omeprazole 40 mg capsule,delayed release(DR/EC) 40 mg PO DAILY PRN (Reason: Dyspepsia) RF: 0 Stand-Alone Forms: [facility] Discharge Orders: Discharge Order (Routine); Ordered 12/30/18 Ordered By: Gabo Mayer Admission Data Admit Date/Time: 12/29/18 13:41 Attending Provider: Gabo Mayer Admit Provider: Gabo Mayer Primary Care Provider: Gustavo Hudson Other Providers: Gabo Mayer ; Ubaldo Vazquez Service: Telemetry Medical
== END 2018-12-30 13:18 | disposition home or self-care (01) ==
LOC: ED 11:08 → 2N 11:08

== ENCOUNTER 2019-03-19 13:03 | Inpatient (IN) ==
[2019-03-19] MEDS ORDERED: SODIUM CHLORIDE 0.9% 1000ML 1,000 ML IV ONE (13:17)
[2019-03-19] MEDS ORDERED: LORazepam 1 MG TAB SL STA (13:19)
[2019-03-19 14:20] LABS: Hematocrit (blood only) 19.8 % (42-52); Hemoglobin 6.4 g/dL (14.0-18.0); Mean Corpuscular Hemoglobin 30.8 pg (25-34); Mean Corpuscular Hgb Conc 32.3 g/dL (32-36); Mean Corpuscular Volume 95.2 fL (80-100); Mean Platelet Volume 10.4 fL (7.4-10.4); Platelet Count 100 K/uL (130-400); RDW Coefficient of Variation 19.3 % (11.5-14.5); RDW Standard Deviation 66.7 fL (36.4-46.3); Red Blood Count 2.08 M/uL (4.7-6.1); White Blood Count 7.02 K/uL (4.8-10.8)
[2019-03-19] MEDS ORDERED: SODIUM CHLORIDE 0.9% 250 ML IV PRN ×2 (14:25→18:42)
[2019-03-19 14:40] LABS: Basophils # (auto) 0.01 K/uL (0-0.2); Basophils % (auto) 0.1 %; Immature Granulocytes # (auto) 0.05 K/uL (0.00-0.02); Immature Granulocytes % (auto) 0.7 %; Lymphocytes # (auto) 0.48 K/uL (1.2-3.4); Lymphocytes % (auto) 6.8 %; Monocytes % (auto) 4.3 %; Neutrophils # (auto) 6.18 K/uL (1.4-6.5); Neutrophils % (auto) 88.1 %; Tear Drop Cells 1+
[2019-03-19 14:53] LABS: Alanine Aminotransferase 18 U/L (12-78); Albumin Level 2.8 gm/dl (3.4-5.0); Alkaline Phosphatase 118 U/L (45-117); Aspartate Aminotransferase 21 U/L (15-37); BUN Creatinine Ratio 25.8 (10-20); Bilirubin,Total 0.6 mg/dl (0.2-1); Blood Urea Nitrogen 10 mg/dl (7-18); Calcium 5.3 mg/dl (8.5-10.1); Carbon Dioxide 28 mmol/L (21-32); Chloride 103 mmol/L (98-107); Creatinine Clr Calc Pharmacy 330.2 ml/min; Est GFR (African American) > 150.0; Est GFR (Non-African American) > 150.0; Globulin 2.7 gm/dl (2.5-4.0); Glucose 99 mg/dl (70-99); Lipase 105 U/L (73-393); Magnesium 1.6 mg/dl (1.8-2.4); Phosphorus 2.1 mg/dl (2.5-4.9); Potassium 3.1 mmol/L (3.5-5.1); Sodium 139 mmol/L (136-145); Total Protein 5.5 gm/dl (6.4-8.2)
[2019-03-19] MEDS ORDERED: CALCIUM GLUCONATE 10% 2,000 MG in SODIUM CHLORIDE 0.9% 50 ML IV STA (15:13)
[2019-03-19] MEDS: MAGNESIUM SULFATE / D5W 1 GM/100 ML BAG IV SCH ×2 (15:44→16:03)
[2019-03-19 16:38] LABS: Thyroid Stimulating Hormone 0.533 uIu/ml (0.300-4.500)
[2019-03-19 16:56] LABS: Appearance Urine Clear (Clear); Bilirubin Urine Negative (Negative); Blood Urine Negative (Negative); Color Urine Yellow; Glucose Urine UA Negative (Negative); Ketones Urine Negative (Negative); Leukocyte Esterase Urine Negative (Negative); Nitrite Urine Negative (Negative); Protein Urine Negative (Negative); Urobilinogen Urine Negative (Negative); pH Urine 8.5 (4.5-7.5)
[2019-03-19] MEDS ORDERED: POTASSIUM CHLORIDE 10 MEQ TABCR PO STA ×3 (16:57→23:38)
[2019-03-19] MEDS ORDERED: POTASSIUM PHOS 3 MMOL/1 ML INFUSION IV STA (16:59)
--- NOTE | 2019-03-19 17:05 | History & Physical Report ---
Date of Service March 19, 2019 Assessment & Plan (1) Hypocalcemia: Pt is 33 y/o M with PMH pancreatic cancer, peritoneal carcinomatosis, bone metastasis on chemo, h/o SVT during a port placement 12/2018, anemia presented to ER with complaint of muscle spasm. Today patient was receiving 5-FU at oncology office and has Neulasta body injector placed today. Patient reports finished his treatment and started with jaw spasms and carpal spasms and was sent to ER. Denies CP, SOB. Patient with history calcium 7.3 on 03/17/2019 and 6.1 on 03/03/19 and is on oral calcium supplements. Today in ER H/H: 6.4/19.8, PLT: 100, K: 3.1, CA: 5.3 (6.3 corrected for albumin of 2.8), phosphorus: 2.1, magnesium: 1.6. EKG: sinus rhythm, QTc:511 In ER patient was given calcium gluconate 2 g, magnesium 2 g, 1 mL NSS, Ativan 1 mg sublingual. Since patient reports no further jaw or carpal spasms. -Obtain ionized calcium, vitamin D level, PTH, TSH -Repeat BMP in 4 hours -Monitor electrolytes and replace as needed -If no improvement consider nephrology consult (2) Hypomagnesemia: magnesium: 1.6 -In ER given magnesium 2 GM IV -Monitor magnesium -Replace as appropriate (3) Hypokalemia: K: 2.9 on 03/17/2019 and was prescribed potassium supplements however has not started yet Today K: 3.1 -Replace and monitor potassium levels (4) Hypophosphatemia: Phosphorus: 2.1 -Replace and monitor phosphorus levels (5) Prolonged Q-T interval on ECG: EK QTC -Monitor EKG -Avoid QTC prolonging agents (6) Anemia: History H&H: 8.8/28 on 03/17/2019, PLT: 117 Today H/H: 6.4/19.8 No melena, hematochezia, epistaxis, -Type and cross and transfuse 2 units PRBC's -Neulasta body injector placed today, to be removed tomorrow -Monitor H&H (7) Pancreatic cancer metastasized to intra-abdominal lymph node: Started Folfirinox on 01/05/19, Xgeva on 01/07/19. Had chemo today Follows with Dr. Roberts DVT Prophylaxis -SCDs secondary to anemia Full Code as per discussion with pt Follows with Dr Hudson for routine care Pt was seen and care coordinated with Dr Matute. See addendum History of Present Illness Chief Complaint: Muscle spasm Primary Care Provider: Gustavo Hudson MD Pt is 33 y/o M with PMH pancreatic cancer, peritoneal carcinomatosis, bone metastasis on chemo, h/o SVT during a port placement 12/2018, anemia presented to ER with complaint of muscle spasm. Today patient was receiving 5-FU at oncology office and has Neulasta body injector placed today. Patient reports finished his treatment and started with jaw spasms and carpal spasms and was sent to ER. Patient reports paresthesias since starting chemo denies any increased symptoms. Also reports intermittent loose stools since starting chemo and denies any increased symptoms or melena or hematochezia. History of intermittent arthralgias however has not experienced spasms previously. Denies fever/chills, diaphoresis, N/V/C, MEDINA, dizziness, syncope, vision changes, neck pain, CP, SOB, orthopnea, palpitations, cough, sore throat, choking, otalgia, rhinorrhea, abdominal pain, weakness, extremity weakness, extremity edema, rashes, urinary symptoms, hematuria, epistaxis. Patient with history calcium 7.3 on 03/17/2019 and 6.1 on 03/03/19 and is on oral calcium supplements. K: 2.9 on 03/17/2019 and was prescribed potassium supplements however has not started yet. History H&H: 8.8/28 on 03/17/2019, PLT: 117 Today in ER H/H: 6.4/19.8, PLT: 100, K: 3.1, CA: 5.3 (6.3 corrected for albumin of 2.8), phosphorus: 2.1, magnesium: 1.6 In ER patient was given calcium gluconate 2 g, magnesium 2 g, 1 mL NSS, Ativan 1 mg sublingual. Since patient reports no further jaw or carpal spasms. Allergies Allergy/AdvReac Type Severity Reaction Status Date / Time No Known Allergies Allergy Verified 03/19/19 15:10 Home Medications Home Medications Medication Instructions Recorded Confirmed Type dicyclomine 10 mg PO TID PRN 12/01/18 03/19/19 History acetaminophen [Tylenol Extra 2,000 mg PO Q6H PRN 12/29/18 03/19/19 History Strength] omeprazole 40 mg PO BID 12/29/18 03/19/19 History oxycodone 5 mg PO Q6 PRN 12/29/18 03/19/19 History polyethylene glycol 3350 [Miralax] 17 g PO DAILY PRN 12/29/18 03/19/19 History sucralfate [Carafate] 1 g PO BID 12/29/18 03/19/19 History calcium carbonate [Calcium 600] 600 mg PO TIDM 03/19/19 03/19/19 History cholecalciferol (vitamin D3) 5,000 unit PO DAILY 03/19/19 03/19/19 History metoprolol succinate [Toprol XL] 25 mg PO HS 03/19/19 03/19/19 History morphine [MS Contin] 15 mg PO Q12H 03/19/19 03/19/19 History ondansetron 8 mg PO Q8H PRN 03/19/19 03/19/19 History oxycodone-acetaminophen [Percocet] 1 tab PO Q6H PRN 03/19/19 03/19/19 History potassium chloride 10 meq PO BID 03/19/19 03/19/19 History prochlorperazine maleate 10 mg PO Q6H PRN 03/19/19 03/19/19 History [Compazine] Past Med/Surg History Medical History Central venous catheter in place (Chronic) Anemia (Chronic) Pancreatic cancer metastasized to intra-abdominal lymph node (Chronic) Paroxysmal supraventricular tachycardia (Resolved) Abnormal CT of the abdomen (Chronic) Done for LLQ pain evaluation. Showed innumerable peritoneal and mesenteric nodules. Possible pancreatitis, possible diverticulitis, though both ruled "unlikely" per radiology. Pancreatic cancer metastasized to intra-abdominal lymph node (Chronic) Family History Father FHx: coronary artery disease, Onset Age: 65 CABG X3 Grandfather (Maternal) Colorectal cancer Grandmother (Maternal) Breast cancer Social History Preferred Language: Yakut Communication Ability: Effective Career Services Manager Required: No Beliefs That Will Affect Care: None Current Living Situation: Spouse Other Information That Helps Us Care for You: No Feels Safe at Home: Yes Safety Concerns: Feels Safe At This Time Smoking Status: Never smoker Second Hand Exposure: No ; Hx Alcohol Use: No Hx Substance Use: No Review of Systems Review of Systems: All systems reviewed & are unremarkable except as noted in HPI & below Physical Exam Physical Exam: General: no acute distress, chronic ill appearing, moderately developed, moderately nourished Head: normocephalic, atraumatic Eyes: PERRL, EOM's intact, conjunctiva non-injected, anicteric ENT: normal inspection external ears, nose, mucous membranes moist; +Chvostek's - lip twitching Neck: supple, trachea midline, non-tender Lungs: clear, no respiratory distress, no wheezing/rhonchi/rales CV: RRR, no murmur, no pretibial edema; port to right upper chest without surrounding edema or erythema Abd: normal BS, soft, non-tender Ext: no cyanosis, no calf tenderness; no current carpal or pedal spasms Neuro: A&O x 3, no focal deficits noted, normal affect Skin: warm, dry Results & Data Vital Signs (Past 12 Hours) Vital Signs Temp Pulse Pulse Resp BP BP Pulse Ox 03/19/19 16:24 78 15 120/71 95 03/19/19 15:45 82 20 119/78 94 03/19/19 14:11 61 18 127/66 96 03/19/19 13:20 96 03/19/19 13:03 37.1 C 94 H 15 125/88 97 Laboratory Results Short CBC 03/19/19 Range/Units 13:52 WBC 7.02 (4.8-10.8) K/uL Hgb 6.4 L* (14.0-18.0) g/dL Hct 19.8 L* (42-52) % Plt Count 100 L (130-400) K/uL BMP 03/19/19 13:52 Sodium 139 Potassium 3.1 L Chloride 103 Carbon Dioxide 28 BUN 10 Creatinine 0.37 L Glucose 99 Calcium 5.3 L* Liver Function 03/19/19 Range/Units 13:52 Total Bilirubin 0.6 (0.2-1) mg/dl AST 21 (15-37) U/L ALT 18 (12-78) U/L Alkaline Phosphatase 118 H (45-117) U/L Albumin 2.8 L (3.4-5.0) gm/dl Urine 03/19/19 Range/Units 16:45 Urine Color Yellow Urine Appearance Clear (Clear) Urine pH 8.5 H (4.5-7.5) Ur Specific [place] 1.010 (1.000-1.030) Urine Protein Negative (Negative) Urine Glucose (UA) Negative (Negative) Code Status & VTE Plan VTE Prophylaxis Plan VTE Prophylaxis will be ordered: Yes Supervising Physician Co-Signing Physician Notes Patient is a 33-year-old male with history of metastatic pancreatic cancer, peritoneal carcinomatosis on ongoing chemotherapy and other medical problems presents with history of muscle spasms. Patient received chemotherapy 5-FU, Neulasta today after which he developed jaw and upper extremity spasms. Reports associated paresthesias. Patient follows with Dr. Marco Roberts for management of pancreatic cancer. He denies any history of chest tightness, shortness of breath, trismus, difficulty swallowing, diarrhea, fever, chills. He received calcium and magnesium supplement while in ED and his symptoms resolved. His QTC is prolonged: 511. On exam patient is well-built and nourished, no apparent distress, normocephalic atraumatic, lungs are clear to auscultation, Chemo-Port on right side of the chest, S1-S2, no murmur, abdomen soft nontender, grossly no focal neurological deficits,+Chvostek's sign. Hypocalcemia Hypomagnesemia Hypophosphatemia Hypokalemia Likely due to Xgeva Check PTH, vitamin D, ionized calcium and TSH levels Replace electrolytes and monitor closely Q6H BMP Gentle IV fluids Anemia Thrombocytopenia Likely secondary to chemotherapy No active bleeding issues Monitor CBC Transfuse PRBCs PRN Prolonged QTC: Avoid QTC prolonging meds Repeat EKG in a.m. I personally reviewed the record. Patient is interviewed and examined at [facility]. Patient's care is coordinated with Dorothy Russell PA-C. Please refer to the documentation above for details of patient's presentation and for discussion of other issues.
[2019-03-19] MEDS ORDERED: POTASSIUM PHOSPHATE 15 MMOL in SODIUM CHLORIDE 0.9% 250 ML IV ONE (17:30)
[2019-03-19] MEDS ORDERED: PROCHLORPERAZINE MALEATE 10 MG TAB PO PRN (18:42)
[2019-03-19] MEDS ORDERED: DICYCLOMINE HCL 10 MG CAP PO PRN (18:42)
[2019-03-19] MEDS ORDERED: OXYCODONE HCL IR 5 MG TAB (IMMEDIATE RELEASE) PO PRN (18:42)
[2019-03-19] MEDS ORDERED: CALCIUM CARBONATE 500 MG CHEWABLE TAB PO SCH (18:42)
[2019-03-19] MEDS ORDERED: POLYETHYLENE (MIRALAX) 17 GM PACK PO PRN (18:42)
[2019-03-19] MEDS ORDERED: ACETAMINOPHEN 325 MG TAB PO PRN (18:42)
--- NOTE | 2019-03-19 19:26 | Emergency Department Note ---
Entered by Shivam Bailey acting as a scribe for Apollo Morales DO History of Present Illness General Chief complaint: Pain (Generalized) Stated complaint: muscle spasm/cramps Source: patient History of Present Illness Onset (ago): minute(s) ([employer]) Location: face, upper extremity, left and right Pain Consistency: + intermittent Quality: + other (muscle spaspm) Exacerbated By: + other (coughing) Associated symptoms: + denies other symptoms (diarrhea, a history of this before, changes in eating or drinking, burning with urination, pain with urination, LOC); no chest pain, no nausea/vomiting and no shortness of breath The patient is a 33 y/o male who presents to the ED w/ a past medical history of metastatic pancreatic cancer and a CC of intermittent muscle spasms to his bilateral arms and face beginning just prior to arrival. The patient states he was being evaluated at [facility] for the removal of his 6th chemotherapy patch. He reports his chemo is for pancreatic cancer that had spread outside the pancreas as well, but now remains only in the pancreas. The patient notes he had a patch of 5FU chemo on for 48 hours and had it removed this morning. He states shortly after removing the patch, he developed bilateral arm spasms and face spasms. The patient reports they seem to worsen when he coughs. He denies nausea, vomiting, diarrhea, a history of this before, changes in eating or drinking, burning with urination, pain with urination, chest pain, shortness of breath, and loss of consciousness. Home Medications Home Medications Medication Instructions Recorded Confirmed Type dicyclomine 10 mg PO TID PRN 12/01/18 03/19/19 History acetaminophen [Tylenol Extra 2,000 mg PO Q6H PRN 12/29/18 03/19/19 History Strength] omeprazole 40 mg PO BID 12/29/18 03/19/19 History oxycodone 5 mg PO Q6 PRN 12/29/18 03/19/19 History polyethylene glycol 3350 [Miralax] 17 g PO DAILY PRN 12/29/18 03/19/19 History sucralfate [Carafate] 1 g PO BID 12/29/18 03/19/19 History calcium carbonate [Calcium 600] 600 mg PO TIDM 03/19/19 03/19/19 History cholecalciferol (vitamin D3) 5,000 unit PO DAILY 03/19/19 03/19/19 History metoprolol succinate [Toprol XL] 25 mg PO HS 03/19/19 03/19/19 History morphine [MS Contin] 15 mg PO Q12H 03/19/19 03/19/19 History ondansetron 8 mg PO Q8H PRN 03/19/19 03/19/19 History oxycodone-acetaminophen [Percocet] 1 tab PO Q6H PRN 03/19/19 03/19/19 History potassium chloride 10 meq PO BID 03/19/19 03/19/19 History prochlorperazine maleate 10 mg PO Q6H PRN 03/19/19 03/19/19 History [Compazine] Allergies Allergy/AdvReac Type Severity Reaction Status Date / Time No Known Allergies Allergy Verified 03/19/19 15:10 Past Med/Surg History Medical History Central venous catheter in place (Chronic) Anemia (Chronic) Pancreatic cancer metastasized to intra-abdominal lymph node (Chronic) Paroxysmal supraventricular tachycardia (Resolved) Abnormal CT of the abdomen (Chronic) Done for LLQ pain evaluation. Showed innumerable peritoneal and mesenteric nodules. Possible pancreatitis, possible diverticulitis, though both ruled "unlikely" per radiology. Pancreatic cancer metastasized to intra-abdominal lymph node (Chronic) Family History Father FHx: coronary artery disease, Onset Age: 65 CABG X3 Grandfather (Maternal) Colorectal cancer Grandmother (Maternal) Breast cancer Social History Preferred Language: Zimbabwean Communication Ability: Effective Drift Miner Required: No Beliefs That Will Affect Care: None Current Living Situation: Spouse Other Information That Helps Us Care for You: No Feels Safe at Home: Yes Safety Concerns: Feels Safe At This Time Smoking Status: Never smoker Second Hand Exposure: No ; Hx Alcohol Use: No Hx Substance Use: No Review of Systems See HPI for pertinent positives & negatives. and A total of 10 systems reviewed and were otherwise negative Physical Exam Vital Signs Vital Signs - 24 hr 03/19/19 13:03 03/19/19 13:20 03/19/19 14:11 Temperature 37.1 C Temperature Source Oral Sepsis Recent Fever Within 48 Hours No Sepsis New/Unexplained Change in Mental Status No Sepsis Action Taken by Nursing No Action Required Pulse Rate 94 H Pulse Rate [Left Finger] 61 Respiratory Rate 15 18 Respiratory Effort / Characteristics Non-Labored Non-Labored Respiratory Depth Normal Normal Respiratory Pattern Regular Regular Blood Pressure 125/88 Blood Pressure [Left Arm] 127/66 Blood Pressure Mean 100 Blood Pressure Mean [Left Arm] 86 Pulse Oximetry 97 96 96 Oxygen Delivery Method Room Air Room Air Room Air 03/19/19 15:45 03/19/19 16:24 Temperature Temperature Source Sepsis Recent Fever Within 48 Hours Sepsis New/Unexplained Change in Mental Status Sepsis Action Taken by Nursing Pulse Rate Pulse Rate [Left Finger] 82 78 Respiratory Rate 20 15 Respiratory Effort / Characteristics Non-Labored Respiratory Depth Normal Respiratory Pattern Regular Blood Pressure Blood Pressure [Left Arm] 119/78 120/71 Blood Pressure Mean Blood Pressure Mean [Left Arm] 91 87 Pulse Oximetry 94 95 Oxygen Delivery Method Room Air GENERAL: Sitting up in bed, chronically ill appearing, in a hospital gown with port access on the right chest wall. No discharge or drainage. EYE EXAM: normal conjunctiva, PERRL and EOM's intact OROPHARYNX: no exudate, no erythema, lips, buccal mucosa, and tongue normal and mucous membranes are moist FACE: Intermittent spasms of the left face. NECK: supple, no nuchal rigidity, no adenopathy, non-tender LUNGS: Clear to auscultation. Normal chest wall mechanics HEART: no murmurs, S1 normal and S2 normal ABDOMEN: abdomen soft, non-tender, normo-active bowel sounds, no masses, no rebound or guarding. BACK: Back is symmetrical on inspection and there is no deformity, no midline tenderness, no CVA tenderness. SKIN: no rashes and no bruising UPPER EXTREMITIES: upper extremities are grossly normal. Intermittent contractions in the bilateral hands. LOWER EXTREMITIES: No pitting edema. NEURO EXAM: Normal sensorium, cranial nerves II-XII intact, normal speech, no weakness of legs. No drift. Finger to nose intact. Gross sensation intact. Upper extremities - intermittent contractions in the bilateral hands. Face - Intermittent spasms of the left face. Course ED COURSE: Vital signs were reviewed and showed HTN The patients medical record was reviewed The above diagnostic studies were performed and reviewed. ED treatments and interventions as stated above. 1313: The patient was evaluated in room C08. A complete history and physical examination was performed. 1427: Upon reevaluation, the patient would not like to have a CT because he recently had a negative MRI. .I discussed my findings with the patient and he understands and agrees with the treatment plan. 1514: I discussed the patient's case with Juan Lei/Onc. It was recommended the patient have a hospitalist evaluation and be given magnesium and calcium gluconate. 1516: I reviewed the patient's case with Dorothy Russell PA-C, [facility] Hospitalist. She will evaluate the patient for further management. Based on the patients age, coexisting illnesses, exam and lab findings the decision to treat as an inpatient was made. The patient remained stable while under my care. The patient will be evaluated for further management. Administered Medications Potassium Phosphate 15 mmol/ (Sodium Chloride) 255 mls @ 88 mls/hr IV ONE ONE Stop: 03/19/19 20:23 Last Admin: 03/19/19 17:27 Dose: 88 mls/hr Documented by: [id number] Discontinued Medications Sodium Chloride (Nss 1000ml) 1,000 mls @ 999 mls/hr IV .Q1H1M ONE Stop: 03/19/19 14:17 Last Infusion: 03/19/19 15:02 Dose: 0 mls/hr Documented by: [id number] Admin: 03/19/19 13:59 Dose: 999 mls/hr Documented by: [id number] Magnesium Sulfate/Dextrose (Magnesium Sulfate / D5w) 1 gm in 100 mls @ 100 mls/hr IV Q1H ELLEN Stop: 03/19/19 17:14 Last Infusion: 03/19/19 17:33 Dose: 0 mls/hr Documented by: [id number] Admin: 03/19/19 16:03 Dose: 100 mls/hr Documented by: [id number] Infusion: 03/19/19 16:02 Dose: 0 mls/hr Documented by: [id number] Admin: 03/19/19 15:44 Dose: 100 mls/hr Documented by: [id number] Calcium Gluconate 2,000 mg/ (Sodium Chloride) 70 mls @ 240 mls/hr IV NOW STA Stop: 03/19/19 15:27 Last Infusion: 03/19/19 16:03 Dose: 0 mls/hr Documented by: [id number] Admin: 03/19/19 15:44 Dose: 240 mls/hr Documented by: [id number] Lorazepam (Ativan) 1 mg SL NOW STA Stop: 03/19/19 13:20 Last Admin: 03/19/19 13:59 Dose: 1 mg Documented by: [id number] Potassium Chloride (Klor-Con M10) 40 meq PO NOW STA Stop: 03/19/19 16:58 Last Admin: 03/19/19 17:31 Dose: 40 meq Documented by: [id number] Potassium Phosphate (Potassium Phosphate Replace) 15 mmol IV NOW STA Stop: 03/19/19 17:00 Last Admin: 03/19/19 17:33 Dose: Not Given Documented by: [id number] Medical Decision Making Differential Diagnosis Differential Diagnosis includes but is not limited to dehydration, stroke, anemia, hypoglycemia, hyponatremia, hypernatremia, urinary tract infection, pneumonia, bronchitis, sepsis, gastroenteritis, additional abdominal pathology, metabolic abnormalities and infections. Medical Records Attestation: I reviewed the patient's medical records. Home Medications Current Medication List: was personally reviewed by me Laboratory Data Attestation: I reviewed the patient's lab results. Result diagrams: 03/19/19 13:52 03/19/19 13:52 Lab Results 03/19/19 03/19/19 03/19/19 Range/Units 05:38 13:52 13:52 WBC 7.02 (4.8-10.8) K/uL RBC 2.08 L (4.7-6.1) M/uL Hgb 6.4 L* (14.0-18.0) g/dL Hct 19.8 L* (42-52) % MCV 95.2 (80-100) fL MCH 30.8 (25-34) pg MCHC 32.3 (32-36) g/dL RDW Std Deviation 66.7 H (36.4-46.3) fL RDW Coeff of Jennie 19.3 H (11.5-14.5) % Plt Count 100 L (130-400) K/uL MPV 10.4 (7.4-10.4) fL Immature Gran % (Auto) 0.7 % Neut % (Auto) 88.1 % Lymph % (Auto) 6.8 % [place] % (Auto) 4.3 % Eos % (Auto) 0.0 % Baso % (Auto) 0.1 % Immature Gran # (Auto) 0.05 H (0.00-0.02) K/uL Neut # (Auto) 6.18 (1.4-6.5) K/uL Lymph # (Auto) 0.48 L (1.2-3.4) K/uL [place] # (Auto) 0.30 (0.11-0.59) K/uL Eos # (Auto) 0.00 (0-0.5) K/uL Baso # (Auto) 0.01 (0-0.2) K/uL Tear Drop Cells 1+ Sodium 139 (136-145) mmol/L Potassium 3.1 L (3.5-5.1) mmol/L Chloride 103 (98-107) mmol/L Carbon Dioxide 28 (21-32) mmol/L Anion Gap 8.0 (3-11) BUN 10 (7-18) mg/dl Creatinine 0.37 L (0.6-1.4) mg/dl Est Cr Clr Drug Dosing 330.2 ml/min Est GFR ( Amer) > 150.0 Est GFR (Non-Af Amer) > 150.0 BUN/Creatinine Ratio 25.8 H (10-20) Glucose 99 (70-99) mg/dl Calcium 5.3 L* (8.5-10.1) mg/dl Phosphorus 2.1 L (2.5-4.9) mg/dl Magnesium 1.6 L (1.8-2.4) mg/dl Total Bilirubin 0.6 (0.2-1) mg/dl AST 21 (15-37) U/L ALT 18 (12-78) U/L Alkaline Phosphatase 118 H (45-117) U/L Total Protein 5.5 L (6.4-8.2) gm/dl Albumin 2.8 L (3.4-5.0) gm/dl Globulin 2.7 (2.5-4.0) gm/dl Albumin/Globulin Ratio 1.0 (0.9-2) Lipase 105 (73-393) U/L 25-OH Vitamin D Total 16.7 L (30-100) ng/ml TSH 0.533 (0.300-4.500) uIu/ml PTH Intact (18.4-80.1) pg/ml Urine Color Urine Appearance (Clear) Urine pH (4.5-7.5) Ur Specific [place] (1.000-1.030) Urine Protein (Negative) Urine Glucose (UA) (Negative) Urine Ketones (Negative) Urine Blood (Negative) Urine Nitrite (Negative) Urine Bilirubin (Negative) Urine Urobilinogen (Negative) Ur Leukocyte Esterase (Negative) Blood Type Blood Type Recheck Antibody Screen Crossmatch 03/19/19 03/19/19 03/19/19 Range/Units 14:42 15:13 16:30 WBC (4.8-10.8) K/uL RBC (4.7-6.1) M/uL Hgb (14.0-18.0) g/dL Hct (42-52) % MCV (80-100) fL MCH (25-34) pg MCHC (32-36) g/dL RDW Std Deviation (36.4-46.3) fL RDW Coeff of Jennie (11.5-14.5) % Plt Count (130-400) K/uL MPV (7.4-10.4) fL Immature Gran % (Auto) % Neut % (Auto) % Lymph % (Auto) % [place] % (Auto) % Eos % (Auto) % Baso % (Auto) % Immature Gran # (Auto) (0.00-0.02) K/uL Neut # (Auto) (1.4-6.5) K/uL Lymph # (Auto) (1.2-3.4) K/uL [place] # (Auto) (0.11-0.59) K/uL Eos # (Auto) (0-0.5) K/uL Baso # (Auto) (0-0.2) K/uL Tear Drop Cells Sodium (136-145) mmol/L Potassium (3.5-5.1) mmol/L Chloride (98-107) mmol/L Carbon Dioxide (21-32) mmol/L Anion Gap (3-11) BUN (7-18) mg/dl Creatinine (0.6-1.4) mg/dl Est Cr Clr Drug Dosing ml/min Est GFR ( Amer) Est GFR (Non-Af Amer) BUN/Creatinine Ratio (10-20) Glucose (70-99) mg/dl Calcium (8.5-10.1) mg/dl Phosphorus (2.5-4.9) mg/dl Magnesium (1.8-2.4) mg/dl Total Bilirubin (0.2-1) mg/dl AST (15-37) U/L ALT (12-78) U/L Alkaline Phosphatase (45-117) U/L Total Protein (6.4-8.2) gm/dl Albumin (3.4-5.0) gm/dl Globulin (2.5-4.0) gm/dl Albumin/Globulin Ratio (0.9-2) Lipase (73-393) U/L 25-OH Vitamin D Total (30-100) ng/ml TSH (0.300-4.500) uIu/ml PTH Intact 470.5 H (18.4-80.1) pg/ml Urine Color Urine Appearance (Clear) Urine pH (4.5-7.5) Ur Specific [place] (1.000-1.030) Urine Protein (Negative) Urine Glucose (UA) (Negative) Urine Ketones (Negative) Urine Blood (Negative) Urine Nitrite (Negative) Urine Bilirubin (Negative) Urine Urobilinogen (Negative) Ur Leukocyte Esterase (Negative) Blood Type O Positive Blood Type Recheck O Positive Antibody Screen NEGATIVE Crossmatch See Detail 03/19/19 Range/Units 16:45 WBC (4.8-10.8) K/uL RBC (4.7-6.1) M/uL Hgb (14.0-18.0) g/dL Hct (42-52) % MCV (80-100) fL MCH (25-34) pg MCHC (32-36) g/dL RDW Std Deviation (36.4-46.3) fL RDW Coeff of Jennie (11.5-14.5) % Plt Count (130-400) K/uL MPV (7.4-10.4) fL Immature Gran % (Auto) % Neut % (Auto) % Lymph % (Auto) % [place] % (Auto) % Eos % (Auto) % Baso % (Auto) % Immature Gran # (Auto) (0.00-0.02) K/uL Neut # (Auto) (1.4-6.5) K/uL Lymph # (Auto) (1.2-3.4) K/uL [place] # (Auto) (0.11-0.59) K/uL Eos # (Auto) (0-0.5) K/uL Baso # (Auto) (0-0.2) K/uL Tear Drop Cells Sodium (136-145) mmol/L Potassium (3.5-5.1) mmol/L Chloride (98-107) mmol/L Carbon Dioxide (21-32) mmol/L Anion Gap (3-11) BUN (7-18) mg/dl Creatinine (0.6-1.4) mg/dl Est Cr Clr Drug Dosing ml/min Est GFR ( Amer) Est GFR (Non-Af Amer) BUN/Creatinine Ratio (10-20) Glucose (70-99) mg/dl Calcium (8.5-10.1) mg/dl Phosphorus (2.5-4.9) mg/dl Magnesium (1.8-2.4) mg/dl Total Bilirubin (0.2-1) mg/dl AST (15-37) U/L ALT (12-78) U/L Alkaline Phosphatase (45-117) U/L Total Protein (6.4-8.2) gm/dl Albumin (3.4-5.0) gm/dl Globulin (2.5-4.0) gm/dl Albumin/Globulin Ratio (0.9-2) Lipase (73-393) U/L 25-OH Vitamin D Total (30-100) ng/ml TSH (0.300-4.500) uIu/ml PTH Intact (18.4-80.1) pg/ml Urine Color Yellow Urine Appearance Clear (Clear) Urine pH 8.5 H (4.5-7.5) Ur Specific [place] 1.010 (1.000-1.030) Urine Protein Negative (Negative) Urine Glucose (UA) Negative (Negative) Urine Ketones Negative (Negative) Urine Blood Negative (Negative) Urine Nitrite Negative (Negative) Urine Bilirubin Negative (Negative) Urine Urobilinogen Negative (Negative) Ur Leukocyte Esterase Negative (Negative) Blood Type Blood Type Recheck Antibody Screen Crossmatch Blood Pressure Blood Pressure Findings: Elevated blood pressure Blood Pressure Disposition: further management by hospitalist RO Narrative Patient is a 33-year-old male who presents the ER referred over from hematology oncology for persistent contractures and spasms of the upper extremities and control. IV was established and blood work was obtained and showed an anemia at 6.4 which is been trending down with the previous at 12. Mild thrombocytopenia. Calcium was low at 5 with an ionized calcium of 0.75. Magnesium was low at 1.6. LFTs and bilirubin were unremarkable. UA was unremarkable. Patient was typed and crossed and given PRBCs. Patient was given IV calcium x2 g along with IV magnesium. Updated bedside discussed with hematology oncology and admit to the hospital. Impression & Plan Symptomatic anemia, Hypocalcemia, Hypomagnesemia, Muscle spasm Critical Care Time Critical Care Time: Yes Total Critical Care Time: 30 I have personally spent 30 minutes of critical care time in the direct management of this patient. This includes bedside care, interpretation of diagnostic studies, and testing, discussion with consultants, patient, and family members, and other required patient management activities. This 30 minutes is in excess of all separately billable procedures. Discharge Plan Visit Data *Final* Discharge Date/Time: 03/19/19 17:56 Chief Complaint: Pain (Generalized) Stated Complaint: muscle spasm/cramps ED Provider: Apollo Morales Discharge Problem: Symptomatic anemia, Hypocalcemia, Hypomagnesemia, Muscle spasm Patient Disposition: Admitted As Inpatient Discharge Instructions Interventions: ED Discharge Assessment Last Done: 03/19/19 17:56 The scribe's documentation has been prepared under my direction and personally reviewed by me in its entirety. I confirm that the note above accurately reflects all work, treatment, procedures, and medical decision making performed by me.
[2019-03-19] MEDS: NSS + 20MEQ KCL 20 MEQ/1,000 ML BAG IV SCH (19:27)
[2019-03-19 19:53] LABS: BUN Creatinine Ratio 17.1 (10-20); Blood Urea Nitrogen 8 mg/dl (7-18); Calcium 5.4 mg/dl (8.5-10.1); Carbon Dioxide 27 mmol/L (21-32); Chloride 103 mmol/L (98-107); Creatinine Clr Calc Pharmacy 259.9 ml/min; Est GFR (African American) > 150.0; Est GFR (Non-African American) 146.1; Glucose 127 mg/dl (70-99); Potassium 3.1 mmol/L (3.5-5.1); Sodium 137 mmol/L (136-145)
[2019-03-19] MEDS ORDERED: POTASSIUM CHLORIDE 20 MEQ TABCR PO STA (19:59)
[2019-03-19] MEDS ORDERED: CALCIUM GLUCONATE 10% 10 ML VIAL IV STA (19:59)
[2019-03-19] MEDS ORDERED: CALCIUM GLUCONATE 10% 2,000 MG in SODIUM CHLORIDE 0.9% 50 ML IV SCH (20:30)
[2019-03-19] MEDS: POTASSIUM CHLORIDE 10 MEQ TABCR PO SCH (20:35)
[2019-03-19] MEDS: METOPROLOL SUCC 25MG EXT REL TAB PO SCH (20:36)
[2019-03-19] MEDS: PANTOprazole 40 MG TAB PO SCH (20:36)
[2019-03-19] MEDS: SUCRALFATE 1 GM TAB PO SCH (20:36)
[2019-03-19] MEDS: MoRPHine SULFATE CR 15 MG TABCR PO SCH (20:38)
[2019-03-19 23:20] LABS: BUN Creatinine Ratio 19.1 (10-20); Blood Urea Nitrogen 10 mg/dl (7-18); Calcium 5.3 mg/dl (8.5-10.1); Carbon Dioxide 29 mmol/L (21-32); Chloride 105 mmol/L (98-107); Creatinine Clr Calc Pharmacy 244.3 ml/min; Est GFR (African American) > 150.0; Est GFR (Non-African American) 142.4; Glucose 99 mg/dl (70-99); Potassium 3.4 mmol/L (3.5-5.1); Sodium 140 mmol/L (136-145)
[2019-03-19] MEDS ORDERED: CALCIUM GLUCONATE 10% 1,000 MG in SODIUM CHLORIDE 0.9% 50 ML IV STA (23:37)
[2019-03-20 02:09] LABS: Hematocrit (blood only) 26.4 % (42-52); Hemoglobin 8.2 g/dL (14.0-18.0)
[2019-03-20 06:31] LABS: Hematocrit (blood only) 27.4 % (42-52); Hemoglobin 8.6 g/dL (14.0-18.0); Mean Corpuscular Hemoglobin 29.5 pg (25-34); Mean Corpuscular Hgb Conc 31.4 g/dL (32-36); Mean Corpuscular Volume 93.8 fL (80-100); RDW Coefficient of Variation 18.7 % (11.5-14.5); RDW Standard Deviation 63.3 fL (36.4-46.3); Red Blood Count 2.92 M/uL (4.7-6.1); White Blood Count 5.58 K/uL (4.8-10.8)
[2019-03-20 07:11] LABS: Blood Urea Nitrogen 8 mg/dl (7-18); Calcium 5.5 mg/dl (8.5-10.1); Carbon Dioxide 26 mmol/L (21-32); Chloride 108 mmol/L (98-107); Creatinine Clr Calc Pharmacy 381.7 ml/min; Est GFR (African American) > 150.0; Est GFR (Non-African American) > 150.0; Glucose 86 mg/dl (70-99); Phosphorus 2.4 mg/dl (2.5-4.9); Potassium 4.3 mmol/L (3.5-5.1); Sodium 139 mmol/L (136-145)
[2019-03-20 07:22] LABS: Mean Platelet Volume 9.8 fL (7.4-10.4); Platelet Count 82 K/uL (130-400)
[2019-03-20 07:23] LABS: Platelet Estimate Decreased (Normal)
[2019-03-20] MEDS: NSS + 20MEQ KCL 20 MEQ/1,000 ML BAG IV SCH (08:53)
[2019-03-20] MEDS: CHOLECALCIFEROL 1,000 UNITS TAB PO SCH (08:54)
[2019-03-20] MEDS: CALCIUM CARBONATE 1250MG TAB PO SCH ×3 (08:55→16:16)
[2019-03-20] MEDS: SUCRALFATE 1 GM TAB PO SCH ×2 (08:55→20:51)
[2019-03-20] MEDS: POTASSIUM CHLORIDE 10 MEQ TABCR PO SCH ×2 (08:55→20:51)
[2019-03-20] MEDS: MoRPHine SULFATE CR 15 MG TABCR PO SCH ×2 (08:59→20:50)
[2019-03-20] MEDS ORDERED: CHOLECALCIFEROL 1,000 UNITS TAB PO SCH (09:00)
[2019-03-20] MEDS: PANTOprazole 40 MG TAB PO SCH ×2 (10:41→20:51)
[2019-03-20] MEDS ORDERED: LORATADINE 10 MG TAB PO ONE (14:05)
--- NOTE | 2019-03-20 20:41 | Hospitalist Progress Note ---
Date of Service March 20, 2019 Assessment & Plan (1) Hypocalcemia: Hypocalcemia (Acute) Presented with facial and carpal spasms after receiving Xgeva in Oncology clinic for bone metastases. Serum calcium initially in ED was 5.3 with an albumin of 2.8 and calculated corrected calcium of 6.26. Ionized calcium was 0.75. QTC was prolonged. Patient received intravenous calcium gluconate in light of his symptoms and prolonged QTC. This morning, serum calcium 5.5 and ionized calcium 0.78. QTc and symptoms improved. No need for additional parenteral calcium at this time. Increase oral calcium supplementation to 1000 mg (elemental calcium) PO TID. Continue vitamin D. Continue cardiac monitoring. Hypokalemia (Acute) Serum potassium 3.1 at time of admission. Received replacement. Potassium today = 4.3. Follow. Hypomagnesemia (Acute) Serum magnesium 1.6 at time of admission. Received replacement. Magnesium today = 2.0. Follow. Symptomatic anemia (Acute) Hemoglobin at time of admission 6.4 compared to 13 in December 2018. Anemia probably secondary to pancreatic carcinoma and chemotherapy. Received 2 units of packed RBCs. Hemoglobin this morning = 8.6. Follow. Thrombocytopenia Platelet count 100,000 at time of admission. Thrombocytopenia probably secondary to chemotherapy. Platelet count today = 82,000. Follow. Pancreatic cancer metastasized to intra-abdominal lymph node (Chronic) Management per Medical Oncology. Loose stools Chronic loose stools, may be due to pancreatic exocrine insufficiency. Consider checking stools for fecal fat as outpatient with pancreatic enzyme supplementation if necessary. VTE prophylaxis No anticoagulants due to severe anemia and thrombocytopenia. SCDs. Ambulate. Disposition Anticipated discharge to home. Medical Oncology follow-up with Dr. Marco Roberts. Subjective Recheck for multiple problems. Patient seen in their room around 1350. 33 YO male with metastatic carcinoma of the pancreas undergoing chemotherapy. Admitted yesterday with severe symptomatic hypocalcemia and anemia. Has received oral and parenteral calcium supplementation over the past 24 hours with improvement of facial and carpal spasms. Transfuse with 2 units of packed RBCs. Pain well controlled. Review of Systems: Constitutional- no fever. Cardiac- no chest pain. Pulmonary- no cough or SOB. GI- chronic loose stools; no nausea, vomiting, melena, hematochezia. - no urinary symptoms. Otherwise, as noted above. Physical Exam Physical Exam: Constitutional- afebrile, no acute distress Eyes- sclerae anicteric Respiratory- clear to auscultation, no respiratory distress Cardiovascular- cardiac rhythm regular, no murmurs or gallops appreciated, no JVD, no pretibial edema or calf tenderness Gastrointestinal- normal bowel sounds, soft, nondistended, nontender Skin- warm and dry, no rash Psychiatric- alert, oriented Results & Data Vital Signs (Past 12 Hours) Vital Signs Temp Pulse Pulse Resp BP Pulse Ox 03/20/19 19:42 37.2 C 85 18 115/82 96 03/20/19 16:00 83 03/20/19 15:26 36.9 C 76 22 114/75 98 03/20/19 11:38 37.2 C 77 18 103/79 99 Diagnostic Findings Laboratory Results - last 24 hr 03/19/19 03/19/19 03/20/19 14:42 22:42 01:49 WBC RBC Hgb 8.2 L Hct 26.4 L MCV MCH MCHC RDW Std Deviation RDW Coeff of Jennie Plt Count MPV Platelet Estimate Sodium 140 Potassium 3.4 L Chloride 105 Carbon Dioxide 29 Anion Gap 6.0 BUN 10 Creatinine 0.50 L Est Cr Clr Drug Dosing 244.3 Est GFR ( Amer) > 150.0 Est GFR (Non-Af Amer) 142.4 BUN/Creatinine Ratio 19.1 Glucose 99 Calcium 5.3 L* Ionized Calcium Phosphorus Magnesium Blood Type O Positive Antibody Screen NEGATIVE Crossmatch See Detail 03/20/19 03/20/19 03/20/19 06:18 06:18 06:18 WBC 5.58 RBC 2.92 L Hgb 8.6 L Hct 27.4 L MCV 93.8 MCH 29.5 MCHC 31.4 L RDW Std Deviation 63.3 H RDW Coeff of Jennie 18.7 H Plt Count 82 L MPV 9.8 Platelet Estimate Decreased L Sodium 139 Potassium 4.3 D Chloride 108 H Carbon Dioxide 26 Anion Gap 5.0 BUN 8 Creatinine 0.32 L Est Cr Clr Drug Dosing 381.7 Est GFR ( Amer) > 150.0 Est GFR (Non-Af Amer) > 150.0 BUN/Creatinine Ratio 25.0 H Glucose 86 Calcium 5.5 L* Ionized Calcium 0.78 L Phosphorus 2.4 L Magnesium 2.0 Blood Type Antibody Screen Crossmatch ECG Additional Comments: At 0721 reviewed and demonstrated normal sinus rhythm at 80/minute, biphasic T waves in leads II and III, QTC 480 ms.
[2019-03-20] MEDS: METOPROLOL SUCC 25MG EXT REL TAB PO SCH (20:51)
[2019-03-21 05:57] LABS: Hematocrit (blood only) 28.2 % (42-52); Hemoglobin 9.2 g/dL (14.0-18.0); Mean Corpuscular Hemoglobin 30.1 pg (25-34); Mean Corpuscular Hgb Conc 32.6 g/dL (32-36); Mean Corpuscular Volume 92.2 fL (80-100); Mean Platelet Volume 10.8 fL (7.4-10.4); Platelet Count 81 K/uL (130-400); RDW Coefficient of Variation 17.8 % (11.5-14.5); Red Blood Count 3.06 M/uL (4.7-6.1); White Blood Count 16.87 K/uL (4.8-10.8)
[2019-03-21 06:22] LABS: BUN Creatinine Ratio 13.6 (10-20); Blood Urea Nitrogen 5 mg/dl (7-18); Carbon Dioxide 25 mmol/L (21-32); Chloride 108 mmol/L (98-107); Creatinine Clr Calc Pharmacy 313.2 ml/min; Est GFR (African American) > 150.0; Est GFR (Non-African American) > 150.0; Glucose 77 mg/dl (70-99); Potassium 4.1 mmol/L (3.5-5.1); Sodium 138 mmol/L (136-145)
[2019-03-21] MEDS ORDERED: LORATADINE 10 MG TAB PO SCH (09:00)
[2019-03-21] MEDS ORDERED: CALCITRIOL 0.25 MCG CAPSULE PO ONE (09:12)
[2019-03-21] MEDS: SUCRALFATE 1 GM TAB PO SCH (09:36)
[2019-03-21] MEDS: CALCIUM CARBONATE 1250MG TAB PO SCH ×2 (09:36→13:13)
[2019-03-21] MEDS: CHOLECALCIFEROL 1,000 UNITS TAB PO SCH (09:37)
[2019-03-21] MEDS: POTASSIUM CHLORIDE 10 MEQ TABCR PO SCH (09:38)
[2019-03-21] MEDS: PANTOprazole 40 MG TAB PO SCH (09:38)
[2019-03-21] MEDS: MoRPHine SULFATE CR 15 MG TABCR PO SCH (09:53)
--- NOTE | 2019-03-21 14:27 | Hospitalist Progress Note ---
Date of Service March 21, 2019 Assessment & Plan (1) Hypocalcemia: Hypocalcemia (Acute) Presented with facial and carpal spasms after receiving Xgeva in Oncology clinic for bone metastases. Serum calcium initially in ED was 5.3 with an albumin of 2.8 and calculated corrected calcium of 6.26. Ionized calcium was 0.75. QTC was prolonged. Patient received intravenous calcium gluconate in light of his symptoms and prolonged QTC. This morning, serum calcium 6.0. and ionized calcium 0.88. QTc prolongation improved and symptoms resolved. Patient has been taking [employer] calcium supplementation 1200 mg of elemental calcium 3 times daily. Increase dose to 2400 mg 3 times daily. Serum 25-OH D level was low (16.7); may have malabsorption of vitamin D due to pancreatic insufficiency. Change from cholecalciferol to calcitriol 0.5 mcg daily. Continue to monitor calcium closely as an outpatient. Hypokalemia (Acute) Serum potassium 3.1 at time of admission. Received replacement. Potassium today = 4.1. Follow. Hypomagnesemia (Acute) Serum magnesium 1.6 at time of admission. Received replacement. Magnesium yesterday = 2.0. Follow. Symptomatic anemia (Acute) Hemoglobin at time of admission 6.4 compared to 13 in December 2018. Anemia probably secondary to pancreatic carcinoma and chemotherapy. Received 2 units of packed RBCs. Hemoglobin this morning = 9.2. Follow. Thrombocytopenia Platelet count 100,000 at time of admission. Thrombocytopenia probably secondary to chemotherapy. Platelet count today = 81,000. Follow. Leukocytosis WBC 16,000. No fever or signs / symptoms of infection. Probably secondary to Neulasta. Pancreatic cancer metastasized to intra-abdominal lymph node (Chronic) Management per Medical Oncology. Loose stools Chronic loose stools, may be due to pancreatic exocrine insufficiency. Serum 25-OH D level was low (16.7); may have malabsorption of vitamin D due to pancreatic insufficiency. Consider outpatient evaluation for pancreatic exocrine insufficiency or empiric trial of pancreatic enzymes. VTE prophylaxis No anticoagulants due to severe anemia and thrombocytopenia. SCDs. Ambulating. Disposition Discharge to home. Medical Oncology follow-up with Dr. Marco Roberts. Subjective Recheck for hypocalcemia, anemia, and other problems. Doing well. Feels much better. No further episodes of tetany. No fever. No cough or SOB. No chest pain. No nausea or vomiting. Chronic loose stools unchanged. Ambulating. Physical Exam Physical Exam: Constitutional- afebrile, no acute distress Eyes- sclerae anicteric Respiratory- clear to auscultation, no respiratory distress Cardiovascular- cardiac rhythm regular, no murmurs or gallops appreciated, no JVD, no pretibial edema or calf tenderness Thorax- right infraclavicular vascular access device Gastrointestinal- normal bowel sounds, soft, nondistended, nontender Skin- warm and dry, no rash Psychiatric- alert, oriented Results & Data Vital Signs (Past 12 Hours) Vital Signs Temp Pulse Resp BP Pulse Ox 03/21/19 11:42 37.1 C 85 18 122/80 98 03/21/19 07:13 37 C 82 18 119/80 100 03/21/19 02:48 37.0 C 76 16 116/70 97 Laboratory Results 03/21/19 05:33 03/21/19 05:33 ECG Additional Comments: EKG performed at 0651 reviewed and demonstrated normal sinus rhythm at 80/minute, QTC 462 ms, no significant ST or T wave abnormalities.
--- NOTE | 2019-03-22 22:32 | Discharge Summary ---
Date of Service Date of Admission: 03/19/19 Date of Discharge: 03/21/19 Admission HPI Per Admitting Provider Pt is 33 y/o M with PMH pancreatic cancer, peritoneal carcinomatosis, bone metastasis on chemo, h/o SVT during a port placement 12/2018, anemia presented to ER with complaint of muscle spasm. Today patient was receiving 5-FU at oncology office and has Neulasta body injector placed today. Patient reports finished his treatment and started with jaw spasms and carpal spasms and was sent to ER. Patient reports paresthesias since starting chemo denies any increased symptoms. Also reports intermittent loose stools since starting chemo and denies any increased symptoms or melena or hematochezia. History of intermittent arthralgias however has not experienced spasms previously. Denies fever/chills, diaphoresis, N/V/C, MEDINA, dizziness, syncope, vision changes, neck pain, CP, SOB, orthopnea, palpitations, cough, sore throat, choking, otalgia, rhinorrhea, abdominal pain, weakness, extremity weakness, extremity edema, rashes, urinary symptoms, hematuria, epistaxis. Patient with history calcium 7.3 on 03/17/2019 and 6.1 on 03/03/19 and is on oral calcium supplements. K: 2.9 on 03/17/2019 and was prescribed potassium supplements however has not started yet. History H&H: 8.8/28 on 03/17/2019, PLT: 117 Today in ER H/H: 6.4/19.8, PLT: 100, K: 3.1, CA: 5.3 (6.3 corrected for albumin of 2.8), phosphorus: 2.1, magnesium: 1.6 In ER patient was given calcium gluconate 2 g, magnesium 2 g, 1 mL NSS, Ativan 1 mg sublingual. Since patient reports no further jaw or carpal spasms. Principal Diagnosis severe hypocalcemia with tetany OTHER ACUTE / NEW DIAGNOSES anemia secondary to carcinoma and/or chemotherapy hypokalemia hypomagnesemia vitamin D deficiency diarrhea- possible pancreatic exocrine insufficiency Discharge Data Allergies Allergy/AdvReac Type Severity Reaction Status Date / Time No Known Allergies Allergy Verified 03/19/19 15:10 Consultations 03/19/19 15:17 ED Decision to Admit Stat Hospital Course (1) Hypocalcemia: Hypocalcemia (Acute) Presented with facial and carpal spasms after receiving Xgeva in Oncology clinic for bone metastases. Serum calcium initially in ED was 5.3 with an albumin of 2.8 and calculated corrected calcium of 6.26. Ionized calcium was 0.75. QTC was prolonged. Patient received intravenous calcium gluconate in light of his symptoms and prolonged QTC. Serum calcium 6.0. and ionized calcium 0.88 on day of discharge. QTc prolongation improved and symptoms resolved. Patient had been taking [employer] calcium supplementation 1200 mg of el emental calcium 3 times daily; dose increased to 2400 mg 3 times daily. Serum 25-OH D level was low (16.7); may have malabsorption of vitamin D due to pancreatic insufficiency. Vitamin D supplementation changed from cholecalciferol to calcitriol 0.5 mcg daily. Continue to monitor calcium closely as an outpatient. Hypokalemia (Acute) Serum potassium 3.1 at time of admission. Received replacement. Potassium day of discharge was 4.1. Follow. Hypomagnesemia (Acute) Serum magnesium 1.6 at time of admission. Received replacement. Magnesium yesterday day of discharge was 2.0. Follow. Symptomatic anemia (Acute) Hemoglobin at time of admission 6.4 compared to 13 in December 2018. Anemia probably secondary to pancreatic carcinoma and chemotherapy. Received 2 units of packed RBCs. Hemoglobin day of discharge was 9.2. Follow. Thrombocytopenia Platelet count 100,000 at time of admission. Thrombocytopenia probably secondary to chemotherapy. Platelet count day of discharge was 81,000. Follow. Leukocytosis WBC day of discharge was 16,000. No fever or signs / symptoms of infection. Probably secondary to Neulasta. Pancreatic cancer metastasized to intra-abdominal lymph node (Chronic) Management per Medical Oncology. Loose stools Chronic loose stools, may be due to pancreatic exocrine insufficiency. Serum 25-OH D level was low (16.7); may have malabsorption of vitamin D due to pancreatic insufficiency. Consider outpatient evaluation for pancreatic exocrine insufficiency or empiric trial of pancreatic enzymes. VTE prophylaxis No anticoagulants due to severe anemia and thrombocytopenia. SCDs. Ambulating. Disposition Discharged to home. Medical Oncology follow-up with Dr. Marco Roberts. Total Time Total Time Spent Total Time Spent (In Minutes): 50 Discharge Plan Discharge Items Patient Disposition: Home - Self-Care Reason For Visit: low calcium level, anemia Discharge Diagnosis: low calcium level, anemia Condition: Good Discharge Goals: Decrease discomfort and Improve disease control Activity: Resume your previous activity Non-emergency contact: Primary Care Provider, Hospitalist and Oncologist Call non-emergency contact if: you have any medication questions and your symptoms worsen Follow-up/Referrals: Marco Roberts MD [Family Provider] - (Dr. Roberts's office will contact you regarding labs and follow-up appointment.) Gustavo Hudson MD [Primary Care Provider] - Diet: Low Fat Addtl Provider Instructions: MEDICATION CHANGES: Increase calcium pills to 2 pills (2400 mg) 3 times a day. Change vitamin D pill to calcitriol (Rocaltrol) 0.025 mg pills, 2 pills daily. Magnesium chloride 64 mg twice a day. Do not use ondansetron (Zofran) or prochlorperazine (Compazine) for nausea until calcium levels are better. SUMMARY OF TEST RESULTS: Hemoglobin level day of admission was 6.4. Hemoglobin level day of discharge was 9.2. Calcium level day of admission was 2.3. Calcium level day of discharge was 6.0. Ionized calcium day of admission was 0.75. Ionized calcium day of discharge was 0.88. PENDING TEST RESULTS: none RECOMMENDATIONS FOR FOLLOW-UP: Repeat blood count and chemistry levels next week in clinic. Dr. Roberts's office will be contacting you with instructions. OTHER INSTRUCTIONS: Seek medical attention if you have: * temperature above 101 * chest pain or trouble breathing * abdominal pain, nausea, vomiting * diarrhea, dark stools or bloody stools * muscle spasms or unusual weakness * any unanswered questions or concerns Call 911 if symptoms are severe. Please take good care of yourself. Call if you have any questions or problems. You can reach a [facility] hospitalist on duty at [facility] 24 hours a day by calling [phone]. My cell # is [phone]. Prescriptions: New calcitriol 0.25 mcg capsule 0.5 mcg PO DAILY Qty: 60 RF: 1 magnesium chloride 64 mg tablet,delayed release (DR/EC) 64 mg PO BID Qty: 60 RF: 1 Continued dicyclomine 10 mg Capsule 10 mg PO TID PRN (Reason: STOMACH PAIN) RF: 0 polyethylene glycol 3350 [Miralax] 17 gram Powder In Packet 17 g PO DAILY PRN (Reason: Constipation) RF: 0 sucralfate [Carafate] 1 gram tablet 1 g PO BID RF: 0 acetaminophen [Tylenol Extra Strength] 500 mg Tablet 2,000 mg PO Q6H PRN (Reason: Pain) RF: 0 oxycodone 5 mg Tablet 5 mg PO Q6 PRN (Reason: Pain) RF: 0 omeprazole 40 mg capsule,delayed release(DR/EC) 40 mg PO BID RF: 0 prochlorperazine maleate [Compazine] 10 mg Tablet 10 mg PO Q6H PRN (Reason: Nausea) RF: 0 ondansetron 8 mg Tablet,Disintegrating 8 mg PO Q8H PRN (Reason: Nausea) RF: 0 oxycodone-acetaminophen [Percocet] 5-325 mg Tablet 1 tab PO Q6H PRN (Reason: Pain) RF: 0 morphine [MS Contin] 15 mg Tablet Extended Release 15 mg PO Q12H RF: 0 metoprolol succinate [Toprol XL] 25 mg Tablet Extended Release 24 Hr 25 mg PO HS RF: 0 potassium chloride 10 mEq Tablet Extended Release 10 meq PO BID RF: 0 Changed calcium carbonate 1,200 mg tablet 2,400 mg PO TID Qty: 0 RF: 0 Discontinued cholecalciferol (vitamin D3) 1,000 unit (25 mcg) Tablet 5,000 unit PO DAILY RF: 0 Stand-Alone Forms: [facility] Discharge Orders: Discharge Order (Routine); Ordered 03/21/19 Ordered By: Emmanuel Salazar Admission Data Admit Date/Time: 03/19/19 16:57 Attending Provider: Emmanuel Salazar Admit Provider: Laurent Matute Primary Care Provider: Gustavo Hudson Other Providers: Laurent Matute Service: Telemetry Other Interventions: Discharge Summary Assessment (RN) Last Done: 03/21/19 15:10 DC Date/Time DO NOT enter until pt leaves facility: 03/21/19 17:00
== END 2019-03-21 17:00 | disposition home or self-care (01) | DRG 641 ==
LOC: ED 13:03 → 2E 16:57

== ENCOUNTER 2020-01-17 23:46 | Observation (INO) ==
[2020-01-18] MEDS ORDERED: ADENOSINE IV SOLN 3 MG/ML 2 ML VIAL IV ONE (00:03)
[2020-01-18] MEDS ORDERED: SODIUM CHLORIDE 0.9% 1000ML 1,000 ML IV SCH (00:15)
[2020-01-18] MEDS ORDERED: ADENOSINE IV SOLN 3 MG/ML 2 ML VIAL IV STA ×2 (00:16)
[2020-01-18 00:24] LABS: Hematocrit (blood only) 34.3 % (42-52); Hemoglobin 11.3 g/dL (14.0-18.0); Mean Corpuscular Hemoglobin 27.8 pg (25-34); Mean Corpuscular Hgb Conc 32.9 g/dL (32-36); Mean Corpuscular Volume 84.3 fL (80-100); Mean Platelet Volume 10.1 fL (7.4-10.4); Platelet Count 365 K/uL (130-400); RDW Coefficient of Variation 17.3 % (11.5-14.5); RDW Standard Deviation 52.5 fL (36.4-46.3); Red Blood Count 4.07 M/uL (4.7-6.1); White Blood Count 4.99 K/uL (4.8-10.8)
[2020-01-18 00:31] LABS: iSTAT Creatinine 1.2 mg/dl (0.6-1.3); iSTAT Hemoglobin 12.2 g/dl (14.0-18.0); iSTAT Ionized Calcium 1.04 mmol/l (1.12-1.32); iSTAT Potassium 3.4 mmol/L (3.3-5.0)
[2020-01-18 00:40] LABS: INR 1.2 (0.9-1.1); Partial Thromboplastin Time 28.8 Seconds (21.0-31.0); Prothrombin Time 12.3 Seconds (9.0-12.0)
[2020-01-18 00:41] LABS: Albumin Level 2.5 gm/dl (3.4-5.0); BUN Creatinine Ratio 14.8 (10-20); Calcium 7.3 mg/dl (8.5-10.1); Creatinine Clr Calc Pharmacy 103.4 ml/min; Est GFR (African American) 93.7; Est GFR (Non-African American) 80.9; Magnesium 1.6 mg/dl (1.8-2.4); Potassium 3.5 mmol/L (3.5-5.1)
[2020-01-18] MEDS ORDERED: LACTATED RINGER'S 1,000 ML IV ONE (00:46)
[2020-01-18] MEDS ORDERED: MAGNESIUM SULFATE / D5W 1 GM/100 ML BAG IV STA (00:47)
[2020-01-18 00:57] LABS: Albumin Globulin Ratio 0.8 (0.9-2); Bilirubin,Total 0.4 mg/dl (0.2-1); Thyroid Stimulating Hormone 1.31 uIu/ml (0.300-4.500); Total Protein 5.5 gm/dl (6.4-8.2); Troponin I 0.145 ng/ml (0-0.045)
--- NOTE | 2020-01-18 00:57 | Emergency Department Note ---
Impression & Plan Supraventricular tachycardia, Palpitations, Acute hypotension, Hypomagnesemia, Elevated troponin I level ED Provider Note NAME: COMPA ARNOLD AGE: 34 SEX: M : 1985 ARRIVES VIA: Walk-In INFORMANT: Patient, ED PROVIDER(S): David Tinajero DO CHIEF COMPLAINT: Palpitations HPI: The patient is a 34-year-old male who has a history of metastatic pancreatic cancer who presented to the emergency department for an evaluation of palpitations. The patient has a history of SVT and felt that he was in an irregular heart rhythm. The patient describes sweatiness as well as lightheadedness. He states that he feels as though he is going to pass out. He states that the symptoms began acutely at approximately 9 PM this evening. The patient also complains of chest discomfort and neck pain. He does receive chemotherapy for his pancreatic cancer but he is on and off week currently. The patient has had a history of SVT in the past. He did not try any Valsalva maneuver at home. He states he has been compliant with his medications. He denies having any fever. He does complain of shortness of breath. The patient arrived with family members. Patient states his symptoms are very severe at this time. He feels though he is going to pass out. ROS: See above HPI for pertinent positives & negatives. A total of 10 systems reviewed and were otherwise negative. PAST MEDICAL HISTORY: See Below PAST SURGICAL HISTORY: See Below FAMILY HISTORY: See Below SOCIAL HISTORY: See Below HOME MEDICATIONS: See Below ALLERGIES: See Below VITALS: See Below PHYSICAL EXAMINATION: GENERAL: The patient is awake and alert. He is very anxious appearing. He is diaphoretic and ashen in color. EYES: The conjunctivae are clear. The pupils are round and reactive. EARS, NOSE, MOUTH AND THROAT: The nose is without any evidence of any deformity. Mucous membranes are dry. NECK: The neck is nontender and supple. RESPIRATORY: Diminished breath sounds are noted at the left lung base. There is no tachypnea or conversational dyspnea. CARDIOVASCULAR: Tachycardic rate with regular rhythm was noted. There is no definite murmur however it may be difficult to auscultate a murmur given his current heart rate. GASTROINTESTINAL: The abdomen is soft. Abdomen is nontender. MUSCULOSKELETAL/EXTREMITIES: There is no evidence of gross deformity full range of motion is noted in the hips and shoulders. SKIN: No pedal edema was noted. Skin was cool and diaphoretic. NEUROLOGIC: Patient is awake alert and oriented x3. Strength is symmetric but diminished. MEDICAL DECISION MAKING: The patient is a 34-year-old male who has a history of metastatic pancreatic cancer who presented to the emergency department for palpitations. The patient states he had palpitations which began acutely prior to arrival. He was unable to break the SVT at home. He has had loose bowel movements for quite some time. He does carry a diagnosis of metastatic pancreatic cancer. He received chemotherapy last week. He also received radiation therapy last spring. The patient was treated with IV fluids as well as IV adenosine in the emergency department. He responded well to this treatment. Valsalva maneuver was attempted but unsuccessful. The patient was further treated with IV fluids and IV magnesium replacement. He was reevaluated multiple times. On subsequent reevaluation he was significantly improved. He was feeling much better. Given the patient's findings and comorbidities I did discuss his case with the on-call [facility] hospitalist. They have agreed to evaluate the patient in the emergency department for further management and disposition. Triage Nursing notes reviewed. Prior medical records reviewed Vital Signs: reviewed and remarkable for tachycardia and hypotension. Differential diagnosis: Premature contractions, electrolyte abnormality, cardiac dysrhythmia, thyroid dysfunction, pulmonary embolism, infection, gastrointestinal, as well as other pathologies. ER treatment provided: See below Diagnostics interpreted by me: ECG: Initial EKG was obtained in the emergency department. My interpretation is supraventricular tachycardia at 214 bpm. There were no PVCs. There is diffuse ST segment depressions noted in the inferior apical and lateral leads. This was compared to a tracing from March 212018. SVT is replaced normal sinus rhythm A second EKG was obtained in the emergency department. This was obtained after chemical cardioversion with adenosine. My interpretation is normal sinus rhythm at 94 bpm. There is no ectopy. There was significant improvement and near resolution of the previously noted ST segment depressions. This was compared to a tracing from March 212018. No significant changes were noted. Cardiac Monitoring: An order was placed for continuous cardiac monitoring. The monitor shows a rate of 95 with sinus rhythm. Laboratory studies: As stated above and show below. Imaging studies: See below Consultation(s): 0110: I discussed this case with Dr. Moore. ED COURSE: Procedures: none PDMP:reviewed and no issues Critical Care: I have personally spent greater than 45 minutes of critical care time in the direct management of this patient. This includes bedside care, interpretation of diagnostic studies, and testing, discussion with consultants, patient, and family members, and other required patient management activities. This 45 minutes is in excess of all separately billable procedures. Past Med/Surg History Medical History Abnormal CT of the abdomen (Chronic) Done for LLQ pain evaluation. Showed innumerable peritoneal and mesenteric nodules. Possible pancreatitis, possible diverticulitis, though both ruled "unlikely" per radiology. Abnormal ECG Central venous catheter in place (Inactive) Elevated heart rate with elevated blood pressure without diagnosis of hypertension Hypocalcemia (Inactive) Hypokalemia (Inactive) Hypomagnesemia (Inactive) Hypophosphatemia Muscle spasm (Inactive) Pancreatic cancer metastasized to intra-abdominal lymph node (Inactive) Paroxysmal supraventricular tachycardia (Resolved) Prolonged Q-T interval on ECG Symptomatic anemia (Inactive) Family History Father FHx: coronary artery disease, Onset Age: 65 CABG X3 Grandfather (Maternal) Colorectal cancer Grandmother (Maternal) Breast cancer Mother No problems noted. Brother No problems noted. Social History Preferred Language: Bulgarian Communication Ability: Effective Director Process Improvement Required: No Beliefs That Will Affect Care: None marital status: Single Current Living Situation: Spouse current occupational status: retired and disabled current occupation: [employer] sales Feels Safe at Home: Yes Smoking Status: Never smoker Second Hand Exposure: No ; Hx Alcohol Use: No Hx Substance Use: No Childhood Exposure to Second-Hand Smoke: No caffeine: Yes (occ cola ) during the past year weight has: other Dental Care, Regularly: Yes Physical Activity Frequency: Does not Exercise Seatbelt Use: always Sunscreen Use: Yes Allergies Allergies Allergy/AdvReac Type Severity Reaction Status Date / Time No Known Allergies Allergy Verified 01/18/20 00:00 Home Meds Home Medications Medication Instructions Recorded Confirmed oxycodone 5 mg PO Q6 PRN 12/29/18 01/18/20 polyethylene glycol 3350 [Miralax] 17 g PO DAILY PRN 12/29/18 01/18/20 metoprolol succinate [Toprol XL] 25 mg PO HS 03/19/19 01/17/20 potassium chloride 10 meq PO BID 03/19/19 01/18/20 calcium carbonate 1,200 mg PO QID 11/06/19 01/18/20 denosumab 120 mg/1.7 mL (70 mg/mL) 120 mg SQ MONTHLY ml 11/06/19 01/18/20 subcutaneous solution morphine 30 mg tablet,extended 30 mg PO Q12H 11/06/19 01/17/20 release calcitriol 0.5 mcg PO DAILY 01/17/20 01/17/20 potassium phosphate, monobasic 500 mg PO BID 01/17/20 01/17/20 [K-Phos Original] fluorouracil 2.5 g IV UD 01/18/20 01/18/20 omeprazole 20 mg PO BID 01/18/20 01/18/20 Results & Data (ED) Vital Signs Vital Signs - 24 hr 01/17/20 23:59 01/18/20 00:00 01/18/20 00:02 Temperature 36.3 C L Temperature Source Oral Pulse Rate 213 H 215 H 213 H Pulse Rate from SpO2 Sensor 106 H 210 H Respiratory Rate 18 Blood Pressure 61/51 L 65/54 L Blood Pressure Mean 55 59 Pulse Oximetry 97 98 Oxygen Delivery Method Room Air Sepsis Recent Fever Within 48 Hours No Sepsis Action Taken by Nursing No Action Required 01/18/20 00:04 01/18/20 00:05 01/18/20 00:07 Temperature Temperature Source Pulse Rate 211 H 212 H Pulse Rate from SpO2 Sensor 212 H 106 H Respiratory Rate Blood Pressure 77/49 L 60/50 L Blood Pressure Mean 63 54 Pulse Oximetry 96 98 99 Oxygen Delivery Method Room Air Room Air Sepsis Recent Fever Within 48 Hours Sepsis Action Taken by Nursing 01/18/20 00:11 01/18/20 00:15 01/18/20 00:16 Temperature Temperature Source Pulse Rate 96 H 95 H 94 H Pulse Rate from SpO2 Sensor 96 H Respiratory Rate Blood Pressure 102/81 96/57 L Blood Pressure Mean 84 79 Pulse Oximetry 96 Oxygen Delivery Method Sepsis Recent Fever Within 48 Hours Sepsis Action Taken by Nursing 01/18/20 00:20 01/18/20 00:25 01/18/20 00:30 Temperature Temperature Source Pulse Rate 93 H 93 H 93 H Pulse Rate from SpO2 Sensor 94 H 93 H 92 H Respiratory Rate Blood Pressure 99/74 L 109/72 100/76 Blood Pressure Mean 85 89 80 Pulse Oximetry 96 95 95 Oxygen Delivery Method Sepsis Recent Fever Within 48 Hours Sepsis Action Taken by Nursing 01/18/20 00:31 01/18/20 00:35 Temperature Temperature Source Pulse Rate 93 H 90 Pulse Rate from SpO2 Sensor 93 H 90 Respiratory Rate Blood Pressure 100/73 Blood Pressure Mean 77 Pulse Oximetry 96 95 Oxygen Delivery Method Sepsis Recent Fever Within 48 Hours Sepsis Action Taken by [facility] Medications Current Medication List: was personally reviewed by me Laboratory Data Attestation: I reviewed the patient's lab results. Result diagrams: 01/18/20 00:00 01/18/20 00:00 Lab Results 01/18/20 01/18/20 01/18/20 Range/Units 00:00 00:00 00:00 WBC 4.99 (4.8-10.8) K/uL RBC 4.07 L (4.7-6.1) M/uL Hgb 11.3 L (14.0-18.0) g/dL POC Hgb (14.0-18.0) g/dl Hct 34.3 L (42-52) % POC Hct (42-52) % MCV 84.3 (80-100) fL MCH 27.8 (25-34) pg MCHC 32.9 (32-36) g/dL RDW Std Deviation 52.5 H (36.4-46.3) fL RDW Coeff of Jennie 17.3 H (11.5-14.5) % Plt Count 365 (130-400) K/uL MPV 10.1 (7.4-10.4) fL PT 12.3 H (9.0-12.0) Seconds INR 1.2 H (0.9-1.1) APTT 28.8 (21.0-31.0) Seconds PTT Ratio 1.0 POC Sodium (135-144) mmol/L Sodium 142 (136-145) mmol/L POC Potassium (3.3-5.0) mmol/L Potassium 3.5 (3.5-5.1) mmol/L POC Chloride (101-112) mmol/L Chloride 113 H (98-107) mmol/L Carbon Dioxide 18 L (21-32) mmol/L POC Total CO2 (24-31) mmol/L Anion Gap 11.0 (3-11) POC Anion Gap (16-25) mmol/L POC BUN (7-18) mg/dl BUN 17 (7-18) mg/dl Creatinine 1.17 (0.6-1.4) mg/dl POC Creatinine (0.6-1.3) mg/dl Est Cr Clr Drug Dosing 103.4 ml/min Est GFR ( Amer) 93.7 Est GFR (Non-Af Amer) 80.9 BUN/Creatinine Ratio 14.8 (10-20) Glucose 137 H (70-99) mg/dl POC Glucose (other) (70-99) mg/dl Calcium 7.3 L (8.5-10.1) mg/dl POC Ioniz Calcium Vinnie (1.12-1.32) mmol/l Magnesium 1.6 L (1.8-2.4) mg/dl Total Bilirubin 0.4 (0.2-1) mg/dl AST 20 (15-37) U/L ALT 20 (12-78) U/L Alkaline Phosphatase 215 H (45-117) U/L Troponin I 0.145 H* (0-0.045) ng/ml Total Protein 5.5 L (6.4-8.2) gm/dl Albumin 2.5 L (3.4-5.0) gm/dl Globulin 3.0 (2.5-4.0) gm/dl Albumin/Globulin Ratio 0.8 L (0.9-2) TSH 1.310 (0.300-4.500) uIu/ml 01/18/20 Range/Units 00:16 WBC (4.8-10.8) K/uL RBC (4.7-6.1) M/uL Hgb (14.0-18.0) g/dL POC Hgb 12.2 L (14.0-18.0) g/dl Hct (42-52) % POC Hct 36 L (42-52) % MCV (80-100) fL MCH (25-34) pg MCHC (32-36) g/dL RDW Std Deviation (36.4-46.3) fL RDW Coeff of Jennie (11.5-14.5) % Plt Count (130-400) K/uL MPV (7.4-10.4) fL PT (9.0-12.0) Seconds INR (0.9-1.1) APTT (21.0-31.0) Seconds PTT Ratio POC Sodium 138 (135-144) mmol/L Sodium (136-145) mmol/L POC Potassium 3.4 (3.3-5.0) mmol/L Potassium (3.5-5.1) mmol/L POC Chloride 106 (101-112) mmol/L Chloride (98-107) mmol/L Carbon Dioxide (21-32) mmol/L POC Total CO2 18 L (24-31) mmol/L Anion Gap (3-11) POC Anion Gap 19.0 (16-25) mmol/L POC BUN 17 (7-18) mg/dl BUN (7-18) mg/dl Creatinine (0.6-1.4) mg/dl POC Creatinine 1.2 (0.6-1.3) mg/dl Est Cr Clr Drug Dosing ml/min Est GFR ( Amer) Est GFR (Non-Af Amer) BUN/Creatinine Ratio (10-20) Glucose (70-99) mg/dl POC Glucose (other) 139 H (70-99) mg/dl Calcium (8.5-10.1) mg/dl POC Ioniz Calcium Vinnie 1.04 L (1.12-1.32) mmol/l Magnesium (1.8-2.4) mg/dl Total Bilirubin (0.2-1) mg/dl AST (15-37) U/L ALT (12-78) U/L Alkaline Phosphatase (45-117) U/L Troponin I (0-0.045) ng/ml Total Protein (6.4-8.2) gm/dl Albumin (3.4-5.0) gm/dl Globulin (2.5-4.0) gm/dl Albumin/Globulin Ratio (0.9-2) TSH (0.300-4.500) uIu/ml Administered Medications Sodium Chloride (Nss 1000ml) 1,000 mls @ 999 mls/hr IV .Q1H1M ELLEN Stop: 01/18/20 01:15 Last Admin: 01/18/20 00:24 Dose: 999 mls/hr Documented by: [id number] Discontinued Medications Adenosine (Adenosine) Confirm Administered Dose 6 mg IV .STBalzo-MED ONE Stop: 01/18/20 00:04 Last Admin: 01/18/20 00:24 Dose: Not Given Documented by: [id number] Adenosine (Adenosine) 6 mg IV NOW STA Stop: 01/18/20 00:17 Last Admin: 01/18/20 00:05 Dose: 6 mg Documented by: [id number] Adenosine (Adenosine) 12 mg IV NOW STA Stop: 01/18/20 00:17 Last Admin: 01/18/20 00:07 Dose: 12 mg Documented by: [id number] Imaging Data Attestation: I personally reviewed and interpreted this imaging study as follows: My Impression: Portable chest x-ray was obtained in the emergency department. My interpretation is elevated left hemidiaphragm. Multiple loops of bowel were noted. There is no free air. There is no definite infiltrate. Heart size is top normal. Blood Pressure Blood Pressure Findings: Low blood pressure Blood Pressure Disposition: further management by hospitalist Discharge Plan Visit Data Chief Complaint: Arrhythmia/Palpitations Stated Complaint: ELEVATED HR, SWEATING ED Provider: David Tinajero Discharge Problem: Supraventricular tachycardia, Palpitations, Acute hypotension, Hypomagnesemia, Elevated troponin I level Patient Disposition: Being Evaluated by Hospitalist Condition: Good Forms Stand Alone Forms: My [facility] Prescriptions Prescriptions: No Action calcium carbonate 1,200 mg tablet 1,200 mg PO QID RF: 0 morphine [MS Contin] 30 mg tablet extended release 30 mg PO Q12H RF: 0 Xgeva 120 mg/1.7 mL (70 mg/mL) solution 120 mg SQ MONTHLY RF: 0 polyethylene glycol 3350 [Miralax] 17 gram Powder In Packet 17 g PO DAILY PRN (Reason: Constipation) RF: 0 oxycodone 5 mg Tablet 5 mg PO Q6 PRN (Reason: Pain) RF: 0 metoprolol succinate [Toprol XL] 25 mg Tablet Extended Release 24 Hr 25 mg PO HS RF: 0 potassium chloride 10 mEq Tablet Extended Release 10 meq PO BID RF: 0 calcitriol 0.5 mcg capsule 0.5 mcg PO DAILY RF: 0 K-Phos Original 500 mg tablet,soluble 500 mg PO BID RF: 0 omeprazole 20 mg capsule,delayed release(DR/EC) 20 mg PO BID RF: 0 fluorouracil 2.5 gram/50 mL solution 2.5 g IV UD RF: 0 Referrals Referrals: Marco Roberts MD [Primary Care Provider] -
[2020-01-18 01:14] LABS: Basophils # (auto) 0.03 K/uL (0-0.2); Basophils % (auto) 0.6 %; Echinocytes 2+; Eosinophils # (auto) 0.06 K/uL (0-0.5); Eosinophils % (auto) 1.2 %; Immature Granulocytes # (auto) 0.02 K/uL (0.00-0.02); Immature Granulocytes % (auto) 0.4 %; Lymphocytes # (auto) 1.17 K/uL (1.2-3.4); Lymphocytes % (auto) 23.4 %; Monocytes # (auto) 1.15 K/uL (0.11-0.59); Neutrophils # (auto) 2.56 K/uL (1.4-6.5); Neutrophils % (auto) 51.4 %
[2020-01-18] MEDS ORDERED: POTASSIUM CHLORIDE 10 MEQ TABCR PO STA (01:24)
--- NOTE | 2020-01-18 03:17 | History & Physical Report ---
Date of Service January 18, 2020 Assessment & Plan (1) Supraventricular tachycardia: Gurpreet Parisi is a 34 year old man with PMH of metastatic pancreatic cancer and paroxysmal SVT who presents in SVT Paroxysmal SVT Chemically cardioverted with adenosine in ED rate is now in 80's sinus Possibly exacerbated by his current irinotecan treatment as this is a known side effect Admitting to telemetry Will optimize K, Mag and Phos Dr. Vazquez his colleter is consulted Will continue patient's home metoprolol Elevated Troponin Most likely from prolonged SVT with rates in 200's Will recheck and trend to peak Hypokalemia Potassium 3.6 will continue patient's home PO K supplements and add 30 meq KCl Hypomagnesemia Mag of 1.6 4 gm MgSO4 IV Metastatic Pancreatic cancer Continuing patient's home PO pain regimen and nausea regimen, currently feeling well Not due for chemotherapy this week DVT PPx: Lovenox F/E/N: NSS @ 150 mls/hour Dispo: Telemetry for close monitoring cardioversion pads in place, will optimize electrolytes and consult cardiology Full Code (2) Palpitations: (3) Hypomagnesemia: (4) Elevated troponin I level: (5) Primary pancreatic cancer with metastasis to other site: (6) Acute hypotension: History of Present Illness Chief Complaint: Racing heart Primary Care Provider: Marco Roberts MD Gurpreet Parisi is a 34 year old man with a past medical history of metastatic pancreatic cancer and paroxysmal supraventricular tachycardia that he developed under anesthesia last year for a port placement and follows with Dr. Vazquez who presents with another episode of SVT with rates in the 200's. He was first diagnosed with pancreatic cancer in November of 2018 who is currently on his third treatment regimen after failing to respond to previous courses of modified FOLFIRINOX and gemcitabine and abraxane. He is now on liposomal irinotecan and 5-FU. He has metastasis to his right hip and right femur which causes chronic pain, he also has peritoneal carcinomatosis and has had profound weight loss (approximately 80 pounds since he first became ill). Today around 8:30 pm he was eating dinner with his girlfriend and felt like his heart started racing out of the blue. He felt as if "he was running a marathon" and became covered in sweat and out of breath with everything that he did. He felt like he was about to pass out several times, but never lost consciousness. In emergency department he was still in SVT with rate of [address] segment depressions in inferolateral leads. He was given adenosine 6 mg and then 12 mg and his heart rate returned to normal sinus rhythm at a normal rate. EKG's were obtained both in SVT and in Normal sinus rhythm status post adenosine. In ED labwork was significant for a potassium of 3.4, magnesium of 1.6, low calcium but normal corrected calcium, elevated troponin of .145, normal TSH and normal white count. He tells me he has been in his usual state of health of late, he has not had any fevers, chills, infectious symptoms, shortness of breath, chest pain, dyspnea with exertion, vomiting, he is on an off week from his chemotherapy and endorses his usual diarrhea following treatment but nothing out of the ordinary. Non smoker, non drinker, no drug use, full code. Allergies Allergy/AdvReac Type Severity Reaction Status Date / Time No Known Allergies Allergy Verified 01/18/20 00:00 Home Medications Home Medications Medication Instructions Recorded Confirmed Type oxycodone 5 mg PO Q6 PRN 12/29/18 01/18/20 History polyethylene glycol 3350 [Miralax] 17 g PO DAILY PRN 12/29/18 01/18/20 History metoprolol succinate [Toprol XL] 25 mg PO HS 03/19/19 01/17/20 History potassium chloride 10 meq PO BID 03/19/19 01/18/20 History calcium carbonate 1,200 mg PO QID 11/06/19 01/18/20 History denosumab 120 mg/1.7 mL (70 mg/mL) 120 mg SQ MONTHLY ml 11/06/19 01/18/20 History subcutaneous solution morphine 30 mg tablet,extended 30 mg PO Q12H 11/06/19 01/17/20 History release calcitriol 0.5 mcg PO DAILY 01/17/20 01/17/20 History potassium phosphate, monobasic 500 mg PO BID 01/17/20 01/17/20 History [K-Phos Original] fluorouracil 2.5 g IV UD 01/18/20 01/18/20 History omeprazole 20 mg PO BID 01/18/20 01/18/20 History ondansetron HCl [Zofran] 8 mg PO UD PRN 01/18/20 01/18/20 History prochlorperazine maleate 10 mg PO UD PRN 01/18/20 01/18/20 History [Compazine] Past Med/Surg History Medical History Abnormal CT of the abdomen (Chronic) Done for LLQ pain evaluation. Showed innumerable peritoneal and mesenteric nodules. Possible pancreatitis, possible diverticulitis, though both ruled "unlikely" per radiology. Abnormal ECG Central venous catheter in place (Inactive) Elevated heart rate with elevated blood pressure without diagnosis of hypertension Hypocalcemia (Inactive) Hypokalemia (Inactive) Hypomagnesemia (Inactive) Hypophosphatemia Muscle spasm (Inactive) Pancreatic cancer metastasized to intra-abdominal lymph node (Inactive) Paroxysmal supraventricular tachycardia (Resolved) Prolonged Q-T interval on ECG Symptomatic anemia (Inactive) Family History Father FHx: coronary artery disease, Onset Age: 65 CABG X3 Grandfather (Maternal) Colorectal cancer Grandmother (Maternal) Breast cancer Mother No problems noted. Brother No problems noted. 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 Safe at Home: Yes Safety Concerns: Feels Safe At This Time Smoking Status: Never smoker Second Hand Exposure: No ; Hx Alcohol Use: No Hx Substance Use: No Childhood Exposure to Second-Hand Smoke: No caffeine: Yes (occ cola ) during the past year weight has: other Dental Care, Regularly: Yes Physical Activity Frequency: Does not Exercise Seatbelt Use: always Sunscreen Use: Yes Review of Systems Review of Systems: All systems reviewed & are unremarkable except as noted in HPI & below Physical Exam Constitutional: no acute distress, no altered mental status and no behavioral limitations Eyes: PERRL, conjunctivae normal, anicteric sclerae ENMT: external ear and nose normal, oropharynx normal Respiratory: normal respiratory effort, lungs clear to auscultation Cardiovascular: Rate/Rhythm: regular rate and regular rhythm Heart Sounds: no click, no gallop, no murmur and no cardiac rub Vessels: no JVD Extremities: no edema Gastrointestinal (Abdomen): normal bowel sounds, soft, nontender, no hepatosplenomegaly Skin: no rashes, warm and dry Psychiatric: A+Ox3, euthymic affect Results & Data Results & Data ([facility]) Vital Signs (Past 12 Hours) Vital Signs Temp Pulse Resp BP Pulse Ox 01/18/20 01:15 93 H 99 01/18/20 01:10 92 H 98/74 L 100 01/18/20 01:05 90 116/77 98 01/18/20 01:01 92 H 98 01/18/20 01:00 92 H 18 117/80 97 01/18/20 00:55 89 91/59 L 97 01/18/20 00:50 89 18 85/59 L 98 01/18/20 00:45 90 74/53 L 97 01/18/20 00:41 95 H 97/50 L 98 01/18/20 00:36 90 18 97 01/18/20 00:35 90 100/73 95 01/18/20 00:31 93 H 96 01/18/20 00:30 93 H 100/76 95 01/18/20 00:25 93 H 109/72 95 01/18/20 00:20 93 H 99/74 L 96 01/18/20 00:16 94 H 96/57 L 01/18/20 00:15 95 H 01/18/20 00:11 96 H 102/81 96 01/18/20 00:07 212 H 60/50 L 99 01/18/20 00:05 211 H 77/49 L 98 01/18/20 00:04 96 01/18/20 00:02 213 H 01/18/20 00:00 36.3 C L 215 H 18 65/54 L 98 01/17/20 23:59 213 H 61/51 L 97 Supervising Physician Co-Signing Physician Notes Attending addendum: I have physically seen this patient, have supervised the medical residents activities, and agree with the H&P unless as otherwise noted. Assessment and Plan: Paroxysmal SVT- the patient will be admitted to telemetry for serial cardiac enzymes, serial EKG's, cardiac rhythm monitoring and a 2-D echocardiogram with Dopplers. Status post adenosine in ED with conversion to normal sinus rhythm in the 80s. Optimize potassium to 4, magnesium to 2. Repeat BMP and magnesium level in a.m. Continue metoprolol succinate 25 mg p.o. at bedtime Consult his colleter . Metastatic pancreatic cancer- Hematology oncology to be notified regarding potential association of SVT with current treatment. Hypotension- Responded initially to fluid bolus in the ED. Continue IV fluids and may give albumin IV Remainder of orders and notations as noted Resident Activity Tracking Resident Involvement: Resident Care Provided Care Provided: Adult Hospital Medicine
[2020-01-18] MEDS ORDERED: SODIUM CHLORIDE 0.9% 1000ML 1,000 ML IV STA (03:26)
[2020-01-18] MEDS ORDERED: PROCHLORPERAZINE MALEATE 10 MG TAB PO PRN (04:02)
[2020-01-18] MEDS ORDERED: POLYETHYLENE (MIRALAX) 17 GM PACK PO PRN (04:02)
[2020-01-18] MEDS ORDERED: FLUOROURACIL IV SCH (04:02)
[2020-01-18] MEDS ORDERED: ACETAMINOPHEN 325 MG TAB PO PRN (04:02)
[2020-01-18] MEDS ORDERED: OXYCODONE HCL IR 5 MG TAB (IMMEDIATE RELEASE) PO PRN (04:20)
[2020-01-18] MEDS ORDERED: ONDANSETRON 4 MG OD TAB PO PRN (04:23)
[2020-01-18] MEDS: SODIUM CHLORIDE 0.9% 1000ML 1,000 ML IV SCH ×3 (04:43→23:17)
[2020-01-18] MEDS: MAGNESIUM SULFATE / D5W 1 GM/100 ML BAG IV SCH ×3 (04:43→08:28)
[2020-01-18] MEDS: POTASSIUM CHLORIDE / WTR 10 MEQ/100 ML PLCT IV SCH ×3 (04:44→06:33)
[2020-01-18 06:04] LABS: Phosphorus 3.1 mg/dl (2.5-4.9); Troponin I 0.394 ng/ml (0-0.045)
--- NOTE | 2020-01-18 06:45 | XRay Report ---
XR chest 1V portable CLINICAL HISTORY: weakness dyspnea COMPARISON STUDY: 12/29/2018 FINDINGS: Moderate elevation left hemidiaphragm. Lungs are considered clear. Central catheter is in t he superior vena cava. IMPRESSION: No acute process. ACT 112: Negative or not required by law. The above report was generated using voice recognition software. It may contain grammatical, syntax or spelling errors. Electronically signed by: Eligio Pedraza M.D. 01/18/2020 6:43 AM
[2020-01-18] MEDS: MoRPHine SULFATE CR 15 MG TABCR PO SCH ×2 (08:28→20:24)
[2020-01-18] MEDS: POT PHOSPHATE MONOBASIC W/ SOD TAB PO SCH ×2 (08:29→20:23)
[2020-01-18] MEDS: CALCIUM CARBONATE 1250MG TAB PO SCH ×4 (08:29→20:24)
[2020-01-18] MEDS: POTASSIUM CHLORIDE 10 MEQ TABCR PO SCH ×2 (08:29→20:23)
[2020-01-18] MEDS: CALCITRIOL 0.25 MCG CAPSULE PO SCH (08:30)
[2020-01-18] MEDS: ENOXAPARIN INJ 40 MG/0.4 ML SYR SQ SCH (08:30)
[2020-01-18] MEDS: PANTOprazole 40 MG TAB PO SCH ×2 (08:30→20:23)
[2020-01-18] MEDS ORDERED: METOPROLOL SUCC 25MG EXT REL TAB PO SCH ×2 (09:00→21:00)
--- NOTE | 2020-01-18 09:17 | Cardiology Consultation ---
Date of Consultation January 18, 2020 Assessment & Plan (1) Supraventricular tachycardia: (2) Palpitations: (3) Hypomagnesemia: (4) Elevated troponin I level: (5) Primary pancreatic cancer with metastasis to other site: Natural history and pathophysiology of paroxysmal supraventricular tachycardia discussed with the patient. Recommend maintaining serum magnesium greater than 2.0, and serum potassium greater than 4.0. Titrate metoprolol to 25 mg twice daily. Monitor telemetry during hospitalization. Trend cardiac enzymes x3 sets. I suspect elevated troponin related to sustained tachycardia with heart rate in excess of 214 bpm. Repeat resting 2D transthoracic echocardiogram pend ing at this time. I will continue to follow closely during hospitalization. History of Present Illness Reason for Consultation: PSVT Requesting Physician: Dr. Conner Attending Physician: Warren Conner DO History of Present Illness 34-year-old patient presents to the emergency department with palpitations, lightheadedness, and near syncope. ECG on admission demonstrates sup raventricular tachycardia at a rate of [address] depressions. Troponins are mildly elevated. Patient reports palpitations and lightheadedness prior to admission. Denies chest pain or shortness of breath. Treated in the emergency department with IV fluids and intravenous adenosine. Arrhythmia terminated with adenosine. Remains in sinus rhythm. Hypomagnesemia and borderline hypokalemia noted on admission. Reports compliance with low-dose beta-jorge therapy. No recent fever, chills, or sick contacts. Carries history of metastatic pancreatic adenocarcinoma with peritoneal carcinomatosis and bony metastases. Current chemotherapeutic treatment includes liposomal irinotecan, and 5-Fluorouracil since 11/10/2019. Treated with xgeva every 4 weeks. Pain management with MS Contin every 12 hours and oxycodone for breakthrough pain. Recently received palliative radiation treatment for symptomatic right hip bony metastatic disease. Currently, patient is resting comfortably. No recurrent dysrhythmias on telemetry overnight. Reports chronic diarrhea. Denies nausea or vomiting. Zofran is noted on medication list, however, patient has never used this medication. Pain is well controlled. Denies orthopnea, PND, lower extremity edema, claudication. Repeat echocardiogram pending. Allergies Allergy/AdvReac Type Severity Reaction Status Date / Time No Known Allergies Allergy Verified 01/18/20 00:00 Home Medications Home Medications Medication Instructions Recorded Confirmed Type oxycodone 5 mg PO Q6 PRN 12/29/18 01/18/20 History polyethylene glycol 3350 [Miralax] 17 g PO DAILY PRN 12/29/18 01/18/20 History potassium chloride 10 meq PO BID 03/19/19 01/18/20 History calcium carbonate 1,200 mg PO QID 11/06/19 01/18/20 History denosumab 120 mg/1.7 mL (70 mg/mL) 120 mg SQ MONTHLY ml 11/06/19 01/18/20 History subcutaneous solution morphine 30 mg tablet,extended 30 mg PO Q12H 11/06/19 01/17/20 History release K-Phos Original 500 mg PO BID 01/17/20 01/17/20 History calcitriol 0.5 mcg PO DAILY 01/17/20 01/17/20 History fluorouracil 2.5 g IV UD 01/18/20 01/18/20 History omeprazole 20 mg PO BID 01/18/20 01/18/20 History ondansetron HCl [Zofran] 8 mg PO UD PRN 01/18/20 01/18/20 History prochlorperazine maleate 10 mg PO UD PRN 01/18/20 01/18/20 History [Compazine] metoprolol succinate [Toprol XL] 75 mg PO DAILY #90 tab 01/19/20 Rx Patient History Medical History Abnormal CT of the abdomen (Chronic) Done for LLQ pain evaluation. Showed innumerable peritoneal and mesenteric nodules. Possible pancreatitis, possible diverticulitis, though both ruled "unlikely" per radiology. Abnormal ECG Central venous catheter in place (Inactive) Elevated heart rate with elevated blood pressure without diagnosis of hypertension Hypocalcemia (Inactive) Hypokalemia (Inactive) Hypomagnesemia (Inactive) Hypophosphatemia Muscle spasm (Inactive) Pancreatic cancer metastasized to intra-abdominal lymph node (Inactive) Paroxysmal supraventricular tachycardia (Resolved) Prolonged Q-T interval on ECG Symptomatic anemia (Inactive) Family History Father FHx: coronary artery disease, Onset Age: 65 CABG X3 Grandfather (Maternal) Colorectal cancer Grandmother (Maternal) Breast cancer Mother No problems noted. Brother No problems noted. Social History Preferred Language: Macanese Communication Ability: Effective Human Resources Benefits Specialist Required: No Beliefs That Will Affect Care: None marital status: Single Current Living Situation: Family current occupational status: retired and disabled current occupation: [employer] sales Feels Safe at Home: Yes Safety Concerns: Feels Safe At This Time Smoking Status: Never smoker Second Hand Exposure: No ; Hx Alcohol Use: No Hx Substance Use: No Childhood Exposure to Second-Hand Smoke: No caffeine: Yes (occ cola ) during the past year weight has: other Dental Care, Regularly: Yes Physical Activity Frequency: Does not Exercise Seatbelt Use: always Sunscreen Use: Yes Review of Systems Review of Systems: All systems reviewed & are unremarkable except as noted in HPI & below Physical Exam Constitutional: well developed, + ill appearing and + thin; no acute distress Respiratory: normal respiratory effort; no respiratory distress, no labored breathing and no retractions Auscultation: no crackles, no rales, no rhonchi and no wheezes Cardiovascular: RRR, no murmur, no edema Vessels: no JVD and no carotid bruit Gastrointestinal (Abdomen): Inspection/Auscultation: normal bowel sounds; abdomen not distended Percussion/Palpation: abdomen soft; abdomen nontender, no guarding and abdomen not rigid Skin: no rashes, warm and dry Neurologic: CN's II-XI intact bilaterally and moves all extremities; no focal motor deficits Speech / Cognition: normal speech Motor/Sensory: no tremor Psychiatric: A+Ox3, euthymic affect Results & Data ([facility]) Vital Signs (Past 12 Hours) Vital Signs Temp Pulse Pulse Resp BP BP Pulse Ox 01/18/20 07:50 37.2 C 86 18 132/64 95 01/18/20 04:07 37.3 C 87 18 125/82 97 01/18/20 03:31 76 99 01/18/20 03:30 77 111/76 100 01/18/20 03:01 80 97 01/18/20 03:00 77 16 104/64 100 01/18/20 02:31 87 100 01/18/20 02:30 87 109/78 100 01/18/20 02:01 82 16 99 01/18/20 02:00 82 95/68 L 100 01/18/20 01:31 87 97 01/18/20 01:30 87 112/74 96 01/18/20 01:15 93 H 99 01/18/20 01:10 92 H 98/74 L 100 01/18/20 01:05 90 116/77 98 01/18/20 01:01 92 H 98 01/18/20 01:00 92 H 18 117/80 97 01/18/20 00:55 89 91/59 L 97 01/18/20 00:50 89 18 85/59 L 98 01/18/20 00:45 90 74/53 L 97 01/18/20 00:41 95 H 97/50 L 98 01/18/20 00:36 90 18 97 01/18/20 00:35 90 100/73 95 01/18/20 00:31 93 H 96 01/18/20 00:30 93 H 100/76 95 01/18/20 00:25 93 H 109/72 95 01/18/20 00:20 93 H 99/74 L 96 01/18/20 00:16 94 H 96/57 L 01/18/20 00:15 95 H 01/18/20 00:11 96 H 102/81 96 01/18/20 00:07 212 H 60/50 L 99 01/18/20 00:05 211 H 77/49 L 98 01/18/20 00:04 96 01/18/20 00:02 213 H 01/18/20 00:00 36.3 C L 215 H 18 65/54 L 98 01/17/20 23:59 213 H 61/51 L 97
[2020-01-18] MEDS: METOPROLOL TARTRATE 25 MG TAB PO SCH ×2 (13:49→20:23)
[2020-01-18 14:49] LABS: Appearance Urine Clear (Clear); Bilirubin Urine Negative (Negative); Blood Urine Negative (Negative); Color Urine Yellow; Glucose Urine UA Negative (Negative); Ketones Urine Negative (Negative); Leukocyte Esterase Urine Negative (Negative); Nitrite Urine Negative (Negative); Protein Urine Negative (Negative); Specific Gravity Urine 1.016 (1.000-1.030); Urobilinogen Urine Negative (Negative); pH Urine 5.5 (4.5-7.5)
--- NOTE | 2020-01-18 21:58 | History & Physical Bridge Note ---
Date of Service January 18, 2020 History & Physical Bridge Note I have examined the patient, reviewed the History & Physical and in the interval since the performance of the History & Physical I have noted the following changes of clinical significance: patient doing well, no further issues d/w Dr. Vazquez, increased metoprolol dose no plans for ablation will monitor for 24 hours, plan to discharge in the morning
--- NOTE | 2020-01-18 22:51 | Billing Data ---
Date of Service January 18, 2020 Coding Level of Care Code 76882 Initial Inpt Care Lvl 3
[2020-01-18 23:26] VITALS: O2SAT 97
[2020-01-19] MEDS ORDERED: HEPARIN 100 UNIT/ML 5ML FLUSH FLUSH PRN (00:59)
--- NOTE | 2020-01-19 06:09 | Electrocardiogram Report ---
Test Reason : Blood Pressure : / mmHG Vent. Rate : 094 BPM Atrial Rate : 094 BPM P-R Int : 112 ms QRS Dur : 098 ms QT Int : 364 ms P-R-T Axes : 020 036 020 degrees QTc Int : 455 ms Normal sinus rhythm Nonspecific ST and T wave abnormality Abnormal ECG When compared with ECG of 18-JAN-2020 00:01, Sinus rhythm has replaced Supraventricular tachycardia Vent. rate has decreased BY [address] no longer depressed in Inferior leads ST no longer depressed in Lateral leads T wave inversion no longer evident in Inferior leads T wave inversion no longer evident in Anterolateral leads Confirmed by Darren Lau ([id number]) on 01/19/2020 6:09:24 AM Referred By: REFERRED SELF Confirmed By:Darren Lau
--- NOTE | 2020-01-19 06:09 | Electrocardiogram Report ---
Test Reason : Blood Pressure : / mmHG Vent. Rate : 214 BPM Atrial Rate : 214 BPM P-R Int : 000 ms QRS Dur : 082 ms QT Int : 204 ms P-R-T Axes : 000 029 235 degrees QTc Int : 385 ms Supraventricular tachycardia Marked ST abnormality, possible inferior subendocardial injury Marked ST abnormality, possible anterolateral subendocardial injury Abnormal ECG When compared with ECG of 21-MAR-2019 06:51, Supraventricular tachycardia has replaced Sinus rhythm Vent. rate has increased BY [address] now depressed in Inferior leads ST now depressed in Anterolateral leads T wave inversion now evident in Inferior leads T wave inversion now evident in Anterolateral leads Confirmed by Darren Lau ([id number]) on 01/19/2020 6:08:55 AM Referred By: REFERRED SELF Confirmed By:Darren Lau
[2020-01-19 07:05] LABS: BUN Creatinine Ratio 18.3 (10-20); Blood Urea Nitrogen 9 mg/dl (7-18); Calcium 7.5 mg/dl (8.5-10.1); Carbon Dioxide 24 mmol/L (21-32); Chloride 113 mmol/L (98-107); Est GFR (African American) > 150.0; Est GFR (Non-African American) 141.4; Glucose 86 mg/dl (70-99); Potassium 3.8 mmol/L (3.5-5.1); Sodium 143 mmol/L (136-145)
[2020-01-19 07:34] VITALS: BP 144/90; PULSE 79; TEMP 99.1
[2020-01-19] MEDS: MoRPHine SULFATE CR 15 MG TABCR PO SCH (07:39)
[2020-01-19] MEDS: POT PHOSPHATE MONOBASIC W/ SOD TAB PO SCH (07:40)
[2020-01-19] MEDS: PANTOprazole 40 MG TAB PO SCH (07:40)
[2020-01-19] MEDS: CALCITRIOL 0.25 MCG CAPSULE PO SCH (07:41)
[2020-01-19] MEDS: METOPROLOL TARTRATE 25 MG TAB PO SCH (07:42)
[2020-01-19] MEDS: CALCIUM CARBONATE 1250MG TAB PO SCH (07:42)
[2020-01-19] MEDS: ENOXAPARIN INJ 40 MG/0.4 ML SYR SQ SCH (07:42)
[2020-01-19] MEDS: POTASSIUM CHLORIDE 10 MEQ TABCR PO SCH (07:43)
[2020-01-19] MEDS: SODIUM CHLORIDE 0.9% 1000ML 1,000 ML IV SCH (07:45)
[2020-01-19] MEDS ORDERED: POTASSIUM CHLORIDE 20 MEQ TABCR PO STA (08:43)
[2020-01-19] MEDS ORDERED: METOPROLOL SUCC 50MG EXT REL TAB PO STA (09:38)
--- NOTE | 2020-01-19 09:42 | Discharge Summary ---
Date of Service January 19, 2020 Admission HPI Per Admitting Provider Gurpreet Parisi is a 34 year old man with a past medical history of metastatic pancreatic cancer and paroxysmal supraventricular tachycardia that he developed under anesthesia last year for a port placement and follows with Dr. Vazquez who presents with another episode of SVT with rates in the 200's. He was first diagnosed with pancreatic cancer in November of 2018 who is currently on his third treatment regimen after failing to respond to previous courses of modified FOLFIRINOX and gemcitabine and abraxane. He is now on liposomal irinotecan and 5-FU. He has metastasis to his right hip and right femur which causes chronic pain, he also has peritoneal carcinomatosis and has had profound weight loss (approximately 80 pounds since he first became ill). Today around 8:30 pm he was eating dinner with his girlfriend and felt like his heart started racing out of the blue. He felt as if "he was running a marathon" and became covered in sweat and out of breath with everything that he did. He felt like he was about to pass out several times, but never lost consciousness. In emergency department he was still in SVT with rate of [address] segment depressions in inferolateral leads. He was given adenosine 6 mg and then 12 mg and his heart rate returned to normal sinus rhythm at a normal rate. EKG's were obtained both in SVT and in Normal sinus rhythm status post adenosine. In ED labwork was significant for a potassium of 3.4, magnesium of 1.6, low calcium but normal corrected calcium, elevated troponin of .145, normal TSH and normal white count. He tells me he has been in his usual state of health of late, he has not had any fevers, chills, infectious symptoms, shortness of breath, chest pain, dyspnea with exertion, vomiting, he is on an off week from his chemotherapy and endorses his usual diarrhea following treatment but nothing out of the ordinary. Non smoker, non drinker, no drug use, full code. Principal Diagnosis Paroxysmal SVT Discharge Exam Constitutional WD/WN, vitals as above Eyes PERRL, conjunctivae normal, anicteric sclerae ENMT external ear and nose normal, oropharynx normal Neck trachea midline, no thyromegaly Respiratory normal respiratory effort, lungs clear to auscultation Cardiovascular RRR, no murmur, no edema Gastrointestinal (Abdomen) normal bowel sounds, soft, nontender, no hepatosplenomegaly Musculoskeletal no cyanosis or clubbing, extremities motor strength 5/5 Skin no rashes, warm and dry Neurologic patellar DTR's 2+ bilat, sensation intact and PERRL, EOMI, accommodation nl, no face palsy, no dysarthria Psychiatric A+Ox3, euthymic affect Lymphatic no cervical or axillary lymphadenopathy Discharge Data Allergies Allergy/AdvReac Type Severity Reaction Status Date / Time No Known Allergies Allergy Verified 01/18/20 00:00 Consultations 01/18/20 01:04 ED Decision to Admit Stat 01/18/20 04:02 Consult Cardiology Routine Hospital Course (1) Supraventricular tachycardia: patient remained in sinus rhythm on increased dose of Toprol discussed with Dr. Vazquez, given his ongoing pancreatic cancer, will not explore ablation plan is for Toprol 75mg daily on discharge he will follow up with cardiology (2) Palpitations: due to SVT, resolved (3) Hypomagnesemia: replaced (4) Elevated troponin I level: due to SVT, no need for further work up (5) Primary pancreatic cancer with metastasis to other site: follow up with Dr. Roberts for ongoing treatment (6) Acute hypotension: due to SVT, resolved with IV fluids and conversion to NSR with Adenosine Total Time Total Time Spent Total Time Spent (In Minutes): 31 minutes Total Time Includes: Examination of the Patient, Discharge Planning, Medication Reconciliation and Communication With Other Providers (discussed with Dr. Vazquez) Discharge Plan Discharge Items Patient Disposition: Home - Self-Care Reason For Visit: SVT Discharge Diagnosis: Paroxysmal SVT Condition on Discharge: Good Goals: continue metoprolol to control SVT Activity: Resume your previous activity Non-emergency contact: Primary Care Provider Call non-emergency contact if: you have any medication questions Follow-up/Referrals: Marco Roberts MD [Primary Care Provider] - (Dr. Marco Roberts's office will call patient with f/u appointment) Diet: Regular Addtl Attending Provider Instructions: Medications: - TOPROL: 75mg daily Paroxysmal SVT, resolved Dr. Vazquez recommends increasing Toprol to 75mg on monitor you have been in sinus rhythm in the 70-80's during hospit alization Pancreatic cancer: follow up with Dr. Roberts as previously scheduled Pending Studies at Discharge: No Stand-Alone Forms: My [facility], Smoking Cessation Medications and DC Order Prescriptions: New metoprolol succinate [Toprol XL] 25 mg tablet extended release 24 hr 75 mg PO DAILY Qty: 90 RF: 3 Continued calcium carbonate 1,200 mg tablet 1,200 mg PO QID RF: 0 morphine [MS Contin] 30 mg tablet extended release 30 mg PO Q12H RF: 0 Xgeva 120 mg/1.7 mL (70 mg/mL) solution 120 mg SQ MONTHLY RF: 0 polyethylene glycol 3350 [Miralax] 17 gram Powder In Packet 17 g PO DAILY PRN (Reason: Constipation) RF: 0 oxycodone 5 mg Tablet 5 mg PO Q6 PRN (Reason: Pain) RF: 0 potassium chloride 10 mEq Tablet Extended Release 10 meq PO BID RF: 0 calcitriol 0.5 mcg capsule 0.5 mcg PO DAILY RF: 0 K-Phos Original 500 mg tablet,soluble 500 mg PO BID RF: 0 omeprazole 20 mg capsule,delayed release(DR/EC) 20 mg PO BID RF: 0 fluorouracil 2.5 gram/50 mL solution 2.5 g IV UD RF: 0 ondansetron HCl [Zofran] 8 mg Tablet 8 mg PO UD PRN (Reason: Nausea) RF: 0 prochlorperazine maleate [Compazine] 10 mg Tablet 10 mg PO UD PRN (Reason: Nausea) RF: 0 Discontinued metoprolol succinate [Toprol XL] 25 mg Tablet Extended Release 24 Hr 25 mg PO HS RF: 0 Discharge Orders: Discharge Order (Routine); Ordered 01/19/20 Ordered By: Warren Conner Admission Data Admit Date/Time: 01/18/20 03:17 Attending Provider: Warren Conner Admit Provider: Chun Gillis Primary Care Provider: Marco Roberts Other Providers: Ganga Mayorga ; Ubaldo Vazquez Other Interventions: Discharge Summary Assessment (RN) Last Done: 01/19/20 09:52 DC Date/Time DO NOT enter until pt leaves facility: 01/19/20 11:07 Coding Level of Care Code D/C Day Management >30 mins Diagnoses Supraventricular tachycardia I47.1 Palpitations R00.2 Hypomagnesemia E83.42 Elevated troponin I level R79.89 Primary pancreatic cancer with metastasis to other site C25.9 Acute hypotension I95.9
--- NOTE | 2020-01-19 10:45 | Cardiology Progress Note ---
Date of Service January 19, 2020 Assessment & Plan (1) Supraventricular tachycardia: (2) Palpitations: (3) Hypomagnesemia: (4) Elevated troponin I level: (5) Primary pancreatic cancer with metastasis to other site: Natural history and pathophysiology of paroxysmal supraventricular tachycardia discussed with the patient. Maintain serum magnesium greater than 2.0, and serum potassium greater than 4.0. 20 mEq of oral potassium chloride ordered. Transition metoprolol tartrate to Toprol-XL 75 mg daily. Repeat echocardiogram reviewed without pericardial effusion. Preserved LV systolic function noted. Outpatient cardiology follow-up in 2 to 4 weeks. Subjective Patient seen and examined at the bedside. No recurrent supraventricular tachycardia overnight. Tolerating metoprolol 25 mg 3 times daily. Denies chest pain, shortness of breath, or recurrent palpitations. No orthopnea, PND, or lower extremity edema. Tolerating diet and medications. Offers no other concerns/complaints this time. Review of Systems Review of Systems: All systems reviewed & are unremarkable except as noted in HPI & below Physical Exam Constitutional: well developed, + ill appearing and + thin; no acute distress Respiratory: normal respiratory effort; no respiratory distress, no labored breathing and no retractions Auscultation: no crackles, no rales, no rhonchi and no wheezes Cardiovascular: RRR, no murmur, no edema Vessels: no JVD and no carotid bruit Gastrointestinal (Abdomen): Inspection/Auscultation: normal bowel sounds; abdomen not distended Percussion/Palpation: abdomen soft; abdomen nontender, no guarding and abdomen not rigid Skin: no rashes, warm and dry Neurologic: CN's II-XI intact bilaterally and moves all extremities; no focal motor deficits Speech / Cognition: normal speech Motor/Sensory: no tremor Psychiatric: A+Ox3, euthymic affect Results & Data Vital Signs (Past 12 Hours) Vital Signs Temp Pulse Pulse Resp BP Pulse Ox 01/19/20 09:52 37.3 C 79 18 144/90 H 97 01/19/20 07:32 37.3 C 79 18 144/90 H 97 01/19/20 03:13 36.5 C 84 16 138/91 97 01/18/20 23:41 82 01/18/20 23:25 36.5 C 80 17 128/88 97
[2020-01-19] MEDS ORDERED: METOPROLOL SUCC 25MG EXT REL TAB PO SCH ×2 (21:00)
[2020-01-20] MEDS ORDERED: METOPROLOL SUCC 50MG EXT REL TAB PO SCH (09:00)
== END 2020-01-19 11:07 | disposition home or self-care (01) | DRG 309 ==
LOC: ED 23:46 → INTOOBSV 01-18 03:17 → SUATTDRO 01-18 03:17 → 2S 01-18 03:17

== ENCOUNTER 2020-02-15 16:24 | Observation (INO) ==
--- NOTE | 2020-02-15 17:14 | Emergency Department Note ---
Impression & Plan Pulmonary embolism, Abnormal EKG ED Provider Note NAME: COMPA ARNOLD AGE: 34 SEX: M : 1985 ARRIVES VIA: Walk-In INFORMANT: Patient, ED PROVIDER(S): David iTnajero DO CHIEF COMPLAINT: Abnormal CAT scan HPI: The patient is a 34-year-old male who has a history of pancreatic cancer who presented to the emergency department at the request of his primary oncologist for an evaluation of pulmonary embolism. The patient had CT of the chest abdomen and pelvis today for follow-up of his diagnosis of metastatic pancreatic cancer. The patient was found to have segmental pulmonary embolus in the right lower lobe of the pulmonary artery. The patient also had multiple other findings on CT which appear to show progression of his retroperitoneal and peritoneal metastatic disease. The patient was advised to come to the emergency department. He has no history of previous venous thrombolic disease. He is complaining of no chest pain or shortness of breath. He denies having any swelling in the legs. The patient has been taking his prescription pain medication as previous. He denies having any fevers. ROS: See above HPI for pertinent positives & negatives. A total of 10 systems reviewed and were otherwise negative. PAST MEDICAL HISTORY: See Below PAST SURGICAL HISTORY: See Below FAMILY HISTORY: See Below SOCIAL HISTORY: See Below HOME MEDICATIONS: See Below ALLERGIES: See Below VITALS: See Below PHYSICAL EXAMINATION: GENERAL: The patient is awake and alert. He is somewhat anxious appearing. EYES: The conjunctivae are clear. The pupils are round and reactive. EARS, NOSE, MOUTH AND THROAT: The nose is without any evidence of any deformity. NECK: The neck is nontender and supple. RESPIRATORY: Normal respiratory effort is noted there is no evidence of wheezing rhonchi or rales CARDIOVASCULAR: Regular rate and rhythm noted there no murmurs rubs or gallops normal S1 normal S2. GASTROINTESTINAL: The abdomen is mildly distended but soft. There is diffuse tenderness but no guarding or rigidity. MUSCULOSKELETAL/EXTREMITIES: There is no evidence of gross deformity full range of motion is noted in the hips and shoulders. SKIN: Skin is pale and dry. There is no calf tenderness. There is minimal pedal edema. NEUROLOGIC: Patient is awake alert and oriented x3 strength is symmetric patellar reflexes are 2+ bilaterally MEDICAL DECISION MAKING: The patient is a 34-year-old male who presented to the emergency department for an evaluation after having outpatient CTs. The patient was advised to come the emergency department by his primary oncologist. The patient has a history of pancreatic cancer which is metastatic to the chest the retroperitoneum as well as the peritoneal cavity. Patient was noted to have increasing metastatic disease on CT but also incidentally was noted to have a right lower lobe pulmonary embolism. The patient at this time has no specific complaints of chest pain but he does complain of some generalized weakness and some dyspnea on exertion at times. The patient was not tachycardic or hypoxic but his EKG does show some changes which could be consistent with right heart strain. His troponin was negative. Dopplers revealed no lower extremity DVTs. I discussed the patient's laboratory and radiographic studies with him. Given his findings on EKG I will also discussed this case with the [facility] hospitalist group. Triage Nursing notes reviewed. Prior medical records reviewed Vital Signs: reviewed and remarkable for elevated blood pressure. Differential diagnosis: Reactive airway disease, pneumonia, pneumothorax, COPD, CHF, infections, cardiac ischemia, pulmonary embolism, musculoskeletal, gastrointestinal, as well as other pathologies. ER treatment provided: See below Diagnostics interpreted by me: ECG: EKG was obtained in the emergency department. My interpretation is normal sinus rhythm at 85 bpm. LVH was noted throughout. Inferior and lateral ST depressions with T wave abnormalities were noted. This was compared to a tracing from January 172019. The ST segment abnormalities appear new compared to the previous tracing. Cardiac Monitoring: An order was placed for continuous cardiac monitoring. The m onitor shows a rate of 89 with sinus rhythm. Laboratory studies: As stated above and show below. Imaging studies: See below Consultation(s): 1924: I discussed this case with Dr. Davalos. He is agreed to evaluate the patient in the emergency department for further management and disposition. ED COURSE: Procedures: none PDMP:reviewed and no issues Critical Care: I have personally spent greater than 50 minutes of critical care time in the direct management of this patient. This includes bedside care, interpretation of diagnostic studies, and testing, discussion with consultants, patient, and family members, and other required patient management activities. This 50 m inutes is in excess of all separately billable procedures. Past Med/Surg History Medical History Abnormal CT of the abdomen (Chronic) Done for LLQ pain evaluation. Showed innumerable peritoneal and mesenteric nodules. Possible pancreatitis, possible diverticulitis, though both ruled "unlikely" per radiology. Abnormal ECG Central venous catheter in place (Inactive) Elevated heart rate with elevated blood pressure without diagnosis of hypertension Hypocalcemia (Inactive) Hypokalemia (Inactive) Hypomagnesemia (Inactive) Hypophosphatemia Muscle spasm (Inactive) Pancreatic cancer metastasized to intra-abdominal lymph node (Inactive) Paroxysmal supraventricular tachycardia (Resolved) Prolonged Q-T interval on ECG Symptomatic anemia (Inactive) Family History Father FHx: coronary artery disease, Onset Age: 65 CABG X3 Grandfather (Maternal) Colorectal cancer Grandmother (Maternal) Breast cancer Mother No problems noted. Brother No problems noted. Social History Smoking Status: Never smoker Second Hand Exposure: No; Hx Alcohol Use: No Hx Substance Use: No Preferred Language: Welsh Communication Ability: Effective Field Service Representative Required: No Beliefs That Will Affect Care: None marital status: Single Current Living Situation: Family current occupational status: retired and disabled current occupation: [employer] sales Feels Safe at Home: Yes Childhood Exposure to Second-Hand Smoke: No caffeine: Yes (occ cola ) during the past year weight has: other Dental Care, Regularly: Yes Physical Activity Frequency: Does not Exercise Seatbelt Use: always Sunscreen Use: Yes Allergies Allergies Allergy/AdvReac Type Severity Reaction Status Date / Time No Known Allergies Allergy Verified 02/15/20 18:43 Home Meds Home Medications Medication Instructions Recorded Confirmed oxycodone 5 mg PO Q6H PRN 12/29/18 02/15/20 potassium chloride 10 meq PO BID 03/19/19 02/15/20 denosumab 120 mg/1.7 mL (70 mg/mL) 120 mg SQ MONTHLY ml 11/06/19 02/15/20 subcutaneous solution morphine 30 mg tablet,extended 30 mg PO Q12H 11/06/19 02/15/20 release K-Phos Original 500 mg PO BID 01/17/20 02/15/20 calcitriol 0.5 mcg PO QAM 01/17/20 02/15/20 fluorouracil 2.5 g IV DIRECTED 01/18/20 02/15/20 omeprazole 20 mg PO BID 01/18/20 02/15/20 ondansetron HCl [Zofran] 8 mg PO DIRECTED PRN 01/18/20 02/15/20 prochlorperazine maleate 10 mg PO DIRECTED PRN 01/18/20 02/15/20 [Compazine] calcium carbonate 1,200 mg PO BID 02/15/20 02/15/20 metoprolol succinate [Toprol XL] 50 mg PO BID 02/15/20 02/15/20 Results & Data (ED) Vital Signs Vital Signs - 24 hr 02/15/20 16:43 02/15/20 16:55 02/15/20 18:25 Temperature 36.9 C Temperature Source Oral Pulse Rate 91 H Pulse Rate [Apical] 84 Pulse Rhythm Regular Pulse Strength Normal Respiratory Rate 20 18 Respiratory Effort / Characteristics Non-Labored Spontaneous Respiratory Depth Normal Respiratory Pattern Regular Blood Pressure 136/93 Blood Pressure [Left Arm] 142/100 H Blood Pressure Mean 107 Blood Pressure Mean [Left Arm] 114 Blood Pressure Position Sitting Pulse Oximetry 100 100 97 Oxygen Delivery Method Room Air Room Air Room Air Sepsis Recent Fever Within 48 Hours No Sepsis New/Unexplained Change in Mental Status N/A Sepsis Action Taken by Nursing No Action Required Home Medications Current Medication List: was personally reviewed by me Laboratory Data Attestation: I reviewed the patient's lab results. Result diagrams: 02/15/20 17:10 02/15/20 17:10 Lab Results 02/15/20 02/15/20 02/15/20 Range/Units 17:10 17:10 17:10 WBC 5.15 (4.8-10.8) K/uL RBC 4.00 L (4.7-6.1) M/uL Hgb 10.9 L (14.0-18.0) g/dL Hct 33.5 L (42-52) % MCV 83.8 (80-100) fL MCH 27.3 (25-34) pg MCHC 32.5 (32-36) g/dL RDW Std Deviation 53.9 H (36.4-46.3) fL RDW Coeff of Jennie 17.5 H (11.5-14.5) % Plt Count 209 (130-400) K/uL MPV 9.4 (7.4-10.4) fL Immature Gran % (Auto) 0.8 % Neut % (Auto) 80.8 % Lymph % (Auto) 12.8 % [place] % (Auto) 2.5 % Eos % (Auto) 2.9 % Baso % (Auto) 0.2 % Neut # (Auto) 4.16 (1.4-6.5) K/uL Lymph # (Auto) 0.66 L (1.2-3.4) K/uL [place] # (Auto) 0.13 (0.11-0.59) K/uL Eos # (Auto) 0.15 (0-0.5) K/uL Baso # (Auto) 0.01 (0-0.2) K/uL Immature Gran # (Auto) 0.04 H (0.00-0.02) K/uL PT 11.6 (9.0-12.0) Seconds INR 1.1 (0.9-1.1) APTT 24.4 (21.0-31.0) Seconds PTT Ratio 0.9 Sodium 135 L (136-145) mmol/L Potassium 3.8 (3.5-5.1) mmol/L Chloride 103 (98-107) mmol/L Carbon Dioxide 24 (21-32) mmol/L Anion Gap 8.0 (3-11) BUN 19 H (7-18) mg/dl Creatinine 0.71 (0.6-1.4) mg/dl Est Cr Clr Drug Dosing 170.4 ml/min Est GFR ( Amer) 141.9 Est GFR (Non-Af Amer) 122.4 BUN/Creatinine Ratio 27.0 H (10-20) Glucose 84 (70-99) mg/dl Calcium 8.5 (8.5-10.1) mg/dl Total Bilirubin 0.6 (0.2-1) mg/dl AST 11 L (15-37) U/L ALT 14 (12-78) U/L Alkaline Phosphatase 207 H (45-117) U/L Troponin I < 0.015 (0-0.045) ng/ml Total Protein 6.4 (6.4-8.2) gm/dl Albumin 3.0 L (3.4-5.0) gm/dl Globulin 3.4 (2.5-4.0) gm/dl Albumin/Globulin Ratio 0.9 (0.9-2) Lipase 117 (73-393) U/L Imaging Data Radiologist's Impression: BILATERAL LOWER EXTREMITY VENOUS DOPPLER HISTORY: Acute pain and swelling of the bilateral lower extremities swelling COMPARISON STUDY: None. FINDINGS: There is normal compressibility, flow, and augmentation within the bilateral lower extremity deep venous systems. IMPRESSION: No DVT within the right or left lower extremity. ACT 112: Negative or not required by law. Electronically signed by: Nick May M.D. 02/15/2020 6:13 PM Dictated: 02/15/201811 Transcribed: 02/15/201811 Prescription Drug Monitoring [place] Drug Monitoring Program reviewed and findings noted below Prescription Drug Findings: Patient is on chronic pain medication for cancer pain. Blood Pressure Blood Pressure Findings: Elevated blood pressure Blood Pressure Disposition: further management by hospitalist Discharge Plan Visit Data Chief Complaint: Illness Stated Complaint: PE ED Provider: David Tinajero Discharge Problem: Pulmonary embolism, Abnormal EKG Patient Disposition: Being Evaluated by Hospitalist Condition: Good Forms Stand Alone Forms: My [facility] [email or web address] Prescriptions Prescriptions: No Action morphine [MS Contin] 30 mg tablet extended release 30 mg PO Q12H RF: 0 Xgeva 120 mg/1.7 mL (70 mg/mL) solution 120 mg SQ MONTHLY RF: 0 oxycodone 5 mg Tablet 5 mg PO Q6H PRN (Reason: Pain) RF: 0 potassium chloride 10 mEq Tablet Extended Release 10 meq PO BID RF: 0 calcitriol 0.5 mcg capsule 0.5 mcg PO QAM RF: 0 K-Phos Original 500 mg tablet,soluble 500 mg PO BID RF: 0 omeprazole 20 mg capsule,delayed release(DR/EC) 20 mg PO BID RF: 0 fluorouracil 2.5 gram/50 mL solution 2.5 g IV DIRECTED RF: 0 ondansetron HCl [Zofran] 8 mg Tablet 8 mg PO DIRECTED PRN (Reason: Nausea) RF: 0 prochlorperazine maleate [Compazine] 10 mg Tablet 10 mg PO DIRECTED PRN (Reason: Nausea) RF: 0 calcium carbonate 600 mg calcium (1,500 mg) Tablet 1,200 mg PO BID RF: 0 metoprolol succinate [Toprol XL] 25 mg tablet extended release 24 hr 50 mg PO BID RF: 0 Referrals Referrals: Umer Michelle MD [Primary Care Provider] - Discharge Problem: Pulmonary embolism Qualifiers: Pulmonary embolism type: unspecified Chronicity: acute Acute cor pulmonale presence: unspecified Qualified Code(s): I26.99 - Other pulmonary embolism without acute cor pulmonale
[2020-02-15 17:28] LABS: Basophils # (auto) 0.01 K/uL (0-0.2); Basophils % (auto) 0.2 %; Eosinophils # (auto) 0.15 K/uL (0-0.5); Eosinophils % (auto) 2.9 %; Hematocrit (blood only) 33.5 % (42-52); Hemoglobin 10.9 g/dL (14.0-18.0); Immature Granulocytes # (auto) 0.04 K/uL (0.00-0.02); Immature Granulocytes % (auto) 0.8 %; Lymphocytes # (auto) 0.66 K/uL (1.2-3.4); Lymphocytes % (auto) 12.8 %; Mean Corpuscular Hemoglobin 27.3 pg (25-34); Mean Corpuscular Hgb Conc 32.5 g/dL (32-36); Mean Corpuscular Volume 83.8 fL (80-100); Mean Platelet Volume 9.4 fL (7.4-10.4); Monocytes # (auto) 0.13 K/uL (0.11-0.59); Monocytes % (auto) 2.5 %; Neutrophils # (auto) 4.16 K/uL (1.4-6.5); Neutrophils % (auto) 80.8 %; Platelet Count 209 K/uL (130-400); RDW Coefficient of Variation 17.5 % (11.5-14.5); RDW Standard Deviation 53.9 fL (36.4-46.3); White Blood Count 5.15 K/uL (4.8-10.8)
[2020-02-15 17:41] LABS: INR 1.1 (0.9-1.1); Partial Thromboplastin Ratio 0.9; Partial Thromboplastin Time 24.4 Seconds (21.0-31.0); Prothrombin Time 11.6 Seconds (9.0-12.0)
[2020-02-15 17:46] LABS: Blood Urea Nitrogen 19 mg/dl (7-18); Calcium 8.5 mg/dl (8.5-10.1); Carbon Dioxide 24 mmol/L (21-32); Chloride 103 mmol/L (98-107); Creatinine Clr Calc Pharmacy 170.4 ml/min; Est GFR (African American) 141.9; Est GFR (Non-African American) 122.4; Glucose 84 mg/dl (70-99); Lipase 117 U/L (73-393); Potassium 3.8 mmol/L (3.5-5.1); Sodium 135 mmol/L (136-145)
[2020-02-15 17:53] LABS: Alanine Aminotransferase 14 U/L (12-78); Albumin Globulin Ratio 0.9 (0.9-2); Alkaline Phosphatase 207 U/L (45-117); Aspartate Aminotransferase 11 U/L (15-37); Bilirubin,Total 0.6 mg/dl (0.2-1); Globulin 3.4 gm/dl (2.5-4.0); Total Protein 6.4 gm/dl (6.4-8.2); Troponin I < 0.015 ng/ml (0-0.045)
--- NOTE | 2020-02-15 18:14 | Ultrasound Report ---
BILATERAL LOWER EXTREMITY VENOUS DOPPLER HISTORY: Acute pain and swelling of the bilateral lower extremities swelling COMPARISON STUDY: None. FINDINGS: There is normal compressibility, flow, and augmentation within the bilateral lower extremit y deep venous systems. IMPRESSION: No DVT within the right or left lower extremity. ACT 112: Negative or not required by law. Electronically signed by: Nick May M.D. 02/15/2020 6:13 PM
[2020-02-15] MEDS ORDERED: ENOXAPARIN 1 MG/KG SC ONE (19:25)
--- NOTE | 2020-02-15 20:10 | History & Physical Report ---
Date of Service February 15, 2020 Assessment & Plan (1) Pulmonary embolism: The patient was referred to the ED by his oncologist due to a CTA of the chest, abdomen and pelvis in the outpatient setting showing a pulmonary embolism in the right lower lobe pulmonary artery. The patient is started on Lovenox 1 mg/kg subcu in the ED tonight. His superintendent division/oncologist will determine long-term preference for anticoagulation for pulmonary embolism and splenic vein thrombosis. Present on Admission?: Yes (2) Abnormal EKG: EKG shows inferior or lateral mild ST depressions, slightly progressed from previous./History of SVT- The patient will be admitted to telemetry for serial cardiac enzymes, serial EKG's, cardiac rhythm monitoring. Troponin is normal at this time, with no immediate suggestion of right heart strain. We will monitor overnight. Consult his oil burner mechanic. Present on Admission?: Yes (3) Primary pancreatic cancer with metastasis to other site: Primary pancreatic cancer with metastases/splenic vein thrombosis/perisplenic and perigastric varices- Presently undergoing chemotherapy. CT does show overall modest progression of retroperitoneal and peritoneal metastatic disease as compared to 10/28/2019 Will need long-term anticoagulation. Mode of any coagulation can be determined by his superintendent division/oncologist along with treatment for right lower lobe pulmonary artery embolism. Present on Admission?: Yes (4) Supraventricular tachycardia: See above. Continue metoprolol tartrate 50 mg p.o. twice daily. Present on Admission?: Yes (5) Splenic vein thrombosis: See above Present on Admission?: Yes (6) Varices of spleen: See above Present on Admission?: Yes (7) Varices, gastric: See above Present on Admission?: Yes History of Present Illness Chief Complaint: The patient is referred to the emergency department by his oncologist for evaluation of a pulmonary embolism that was found on an outpatient CTA of the chest, abdomen and pelvis. Primary Care Provider: Oleksandr Michelle MD The patient is a 34-year-old male with a past medical history of pancreatic cancer, presently undergoing chemotherapy, who presents to the emergency department at the request of his oncologist due to a pulmonary embolism being found and the right lower lobe on a outpatient CTA of chest, abdomen and pelvis. Allergies Allergy/AdvReac Type Severity Reaction Status Date / Time No Known Allergies Allergy Verified 02/15/20 18:43 Home Medications Home Medications Medication Instructions Recorded Confirmed Type oxycodone 5 mg PO Q6H PRN 12/29/18 02/15/20 History potassium chloride 10 meq PO BID 03/19/19 02/15/20 History denosumab 120 mg/1.7 mL (70 mg/mL) 120 mg SQ MONTHLY ml 11/06/19 02/15/20 History subcutaneous solution morphine 30 mg tablet,extended 30 mg PO Q12H 11/06/19 02/15/20 History release K-Phos Original 500 mg PO BID 01/17/20 02/15/20 History calcitriol 0.5 mcg PO QAM 01/17/20 02/15/20 History fluorouracil 2.5 g IV DIRECTED 01/18/20 02/15/20 History omeprazole 20 mg PO BID 01/18/20 02/15/20 History ondansetron HCl [Zofran] 8 mg PO DIRECTED PRN 01/18/20 02/15/20 History prochlorperazine maleate 10 mg PO DIRECTED PRN 01/18/20 02/15/20 History [Compazine] calcium carbonate 1,200 mg PO BID 02/15/20 02/15/20 History metoprolol succinate [Toprol XL] 50 mg PO BID 02/15/20 02/15/20 History Past Med/Surg History Medical History Abnormal CT of the abdomen (Chronic) Done for LLQ pain evaluation. Showed innumerable peritoneal and mesenteric nodules. Possible pancreatitis, possible diverticulitis, though both ruled "unlikely" per radiology. Abnormal ECG Central venous catheter in place (Inactive) Elevated heart rate with elevated blood pressure without diagnosis of hypertension Hypocalcemia (Inactive) Hypokalemia (Inactive) Hypomagnesemia (Inactive) Hypophosphatemia Muscle spasm (Inactive) Pancreatic cancer metastasized to intra-abdominal lymph node (Inactive) Paroxysmal supraventricular tachycardia (Resolved) Prolonged Q-T interval on ECG Symptomatic anemia (Inactive) Family History Father FHx: coronary artery disease, Onset Age: 65 CABG X3 Grandfather (Maternal) Colorectal cancer Grandmother (Maternal) Breast cancer Mother No problems noted. Brother No problems noted. 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 Feels Safe at Home: Yes Childhood Exposure to Second-Hand Smoke: No caffeine: Yes (occ cola ) during the past year weight has: other Dental Care, Regularly: Yes Physical Activity Frequency: Does not Exercise Seatbelt Use: always Sunscreen Use: Yes Review of Systems Review of Systems: The patient denies palpitations, cough, lower extremity swelling, sore throat, fever, chills, sweats, weight change, nausea, vomiting, diarrhea , constipation, blood in urine or stool, dysuria, urinary frequency or urgency, lightheadedness, dizziness, headache, memory loss, loss of consciousness, rash, abnormal bruising or bleeding, imbalance, focal weakness, numbness or tingling in arms or legs, generalized arthralgias or myalgias, neck pain, or night sweats. The review of systems is otherwise negative other than for that already noted above, and at least 10 systems have been reviewed. Physical Exam Physical Exam: The patient is awake, alert and oriented 3, looks fatigued, normocephalic and atraumatic, lying in bed and in no acute distress. HEENT--PERRL, EOMI, mucous membranes and oropharynx normal. Neck--supple. No JVD. No bruits. Thyroid normal, trachea midline, no adenopathy. Heart--normal S1 and S2. No murmurs, rubs or gallops. Lungs--clear bilaterally, no respiratory distress, no accessory muscle use. Abdomen--normal bowel sounds and soft. Nontender. Nondistended. Extremities--no cyanosis or clubbing. No edema. There are good distal pulses b/l. Dermatologic--normal skin turgor, normal color, no abnormal lymph nodes, no rash. Neurologic--cranial nerves II through XII grossly intact. Rheumatologic--normal range of motion. Psychiatric--normal affect. Results & Data Results & Data ([facility]) Vital Signs (Past 12 Hours) Vital Signs Temp Pulse Pulse Resp BP BP Pulse Ox 02/15/20 19:48 84 18 154/104 H 100 02/15/20 18:25 84 18 142/100 H 97 02/15/20 16:55 100 02/15/20 16:43 98.4 F 91 H 20 136/93 100 Laboratory Results Laboratory Results WBC 5.15 K/uL (4.8-10.8) 02/15/20 17:10 RBC 4.00 M/uL (4.7-6.1) L 02/15/20 17:10 Hgb 10.9 g/dL (14.0-18.0) L 02/15/20 17:10 Hct 33.5 % (42-52) L 02/15/20 17:10 MCV 83.8 fL (80-100) 02/15/20 17:10 MCH 27.3 pg (25-34) 02/15/20 17:10 MCHC 32.5 g/dL (32-36) 02/15/20 17:10 RDW Std Deviation 53.9 fL (36.4-46.3) H 02/15/20 17:10 RDW Coeff of Jennie 17.5 % (11.5-14.5) H 02/15/20 17:10 Plt Count 209 K/uL (130-400) 02/15/20 17:10 MPV 9.4 fL (7.4-10.4) 02/15/20 17:10 Immature Gran % (Auto) 0.8 % 02/15/20 17:10 Neut % (Auto) 80.8 % 02/15/20 17:10 Lymph % (Auto) 12.8 % 02/15/20 17:10 [place] % (Auto) 2.5 % 02/15/20 17:10 Eos % (Auto) 2.9 % 02/15/20 17:10 Baso % (Auto) 0.2 % 02/15/20 17:10 Neut # (Auto) 4.16 K/uL (1.4-6.5) 02/15/20 17:10 Lymph # (Auto) 0.66 K/uL (1.2-3.4) L 02/15/20 17:10 [place] # (Auto) 0.13 K/uL (0.11-0.59) 02/15/20 17:10 Eos # (Auto) 0.15 K/uL (0-0.5) 02/15/20 17:10 Baso # (Auto) 0.01 K/uL (0-0.2) 02/15/20 17:10 Immature Gran # (Auto) 0.04 K/uL (0.00-0.02) H 02/15/20 17:10 PT 11.6 Seconds (9.0-12.0) 02/15/20 17:10 INR 1.1 (0.9-1.1) 02/15/20 17:10 APTT 24.4 Seconds (21.0-31.0) 02/15/20 17:10 PTT Ratio 0.9 02/15/20 17:10 Sodium 135 mmol/L (136-145) L 02/15/20 17:10 Potassium 3.8 mmol/L (3.5-5.1) 02/15/20 17:10 Chloride 103 mmol/L (98-107) 02/15/20 17:10 Carbon Dioxide 24 mmol/L (21-32) 02/15/20 17:10 Anion Gap 8.0 (3-11) 02/15/20 17:10 BUN 19 mg/dl (7-18) H 02/15/20 17:10 Creatinine 0.71 mg/dl (0.6-1.4) 02/15/20 17:10 Est Cr Clr Drug Dosing 170.4 ml/min 02/15/20 17:10 Est GFR ( Amer) 141.9 02/15/20 17:10 Est GFR (Non-Af Amer) 122.4 02/15/20 17:10 BUN/Creatinine Ratio 27.0 (10-20) H 02/15/20 17:10 Glucose 84 mg/dl (70-99) 02/15/20 17:10 Calcium 8.5 mg/dl (8.5-10.1) 02/15/20 17:10 Total Bilirubin 0.6 mg/dl (0.2-1) 02/15/20 17:10 AST 11 U/L (15-37) L 02/15/20 17:10 ALT 14 U/L (12-78) 02/15/20 17:10 Alkaline Phosphatase 207 U/L (45-117) H 02/15/20 17:10 Troponin I < 0.015 ng/ml (0-0.045) 02/15/20 17:10 Total Protein 6.4 gm/dl (6.4-8.2) 02/15/20 17:10 Albumin 3.0 gm/dl (3.4-5.0) L 02/15/20 17:10 Globulin 3.4 gm/dl (2.5-4.0) 02/15/20 17:10 Albumin/Globulin Ratio 0.9 (0.9-2) 02/15/20 17:10 Lipase 117 U/L (73-393) 02/15/20 17:10 Diagnostic Findings [place], [place] [phone] Nuclear Medicine Report Patient: COMPA ARNOLD Date: 02/15/20 MR#: [id number]: [address] [facility] Acct ID:[id number]: Date: [address] Zip: [place] [address] Age: 34Location: NM Sex: M Room/Bed: Att Phy: Marco Roberts MDDiagnosis: PANCREATIC CA Allie Phy: Oleksandr Michelle MDService Date: 02/15/20 Fam Phy:Interpreting Phy: Red Hardin MD Admit Phy: Ordering Phy: Marco Roberts MD cc: ~ NM bone scan whole body CLINICAL HISTORY: PANCREATIC CANCER COMPARISON STUDY: CT scan dated 02/15/2020 FINDINGS: The patient was injected with 27.1 mCi of technetium 99m MDP. Three- hour delayed whole body images were acquired. CT scan of the chest abdomen pelvis performed the same day there are extensive foci of abnormal increased activity. There is involvement of both shoulders, sternomanubrial joint, multiple ribs, lower thoracic and lumbar vertebral bodies, and pelvis, and the greater trochanter of the right hip. The findings correspond to sclerotic lesions on the CT scan and are consistent with extensive metastatic disease. IMPRESSION: Extensive foci of intense abnormal increased activity consistent with widespread skeletal metastasis ACT 112: Negative or not required by law. Electronically signed by: Red Hardin M.D. 02/15/2020 4:29 PM Dictated: 02/15/20 1626 Transcribed: 02/15/20 1626 [place], [place] [phone] CT Scan Report Patient: COMPA ARNOLD Date: 02/15/20 MR#: [id number]: [address] [facility] Acct ID:[id number]: Date: 1985ty Zip: [place] [address] Age: 34Location: CT Sex: M Room/Bed: Att Phy: Marco Roberts MDDiagnosis: PANCREATIC CA Allie Phy: Oleksandr Michelle MDService Date: 02/15/20 Fam Phy:Interpreting Phy: Jason May Admit Phy: Ordering Phy: Marco Roberts MD cc: ~ CHEST CT WITH CONTRAST CT DOSE: 951.13 mGy.cm HISTORY: Subsequent treatment strategy. Follow-up study in a patient with history of pancreatic cancer PANCREATIC CANCER TECHNIQUE: Multiaxial CT images of the chest were performed following the IV administration of 92 cc of Optiray 320. A dose lowering technique was utilized adhering to the principles of ALARA. COMPARISON: CT abdomen and pelvis of same day, PET CT from outside facility 10/28/2019, CT abdomen and pelvis 11/28/2018 FINDINGS: Unremarkable thyroid. Right IJ central venous catheter distal tip terminates within the mid SVC. The heart is normal in size without pericardial effusion. There is a partially occlusive filling defect noted within a segmental and subsegmental branch of the right lower lobe on image 199 series 4 compatible with pulmonary embolus. No central pulmonary emboli are identified. No evidence of right heart strain. No thoracic aortic aneurysm. Patency of the imaged great vessels. Mild descending thoracic aortic tortuosity. No suspicious thoracic lymphadenopathy. Moderate left hemidiaphragmatic elevation. No pneumothorax, pleural effusion, airspace consolidation or overt pulmonary edema. Mild bronchial wall thickening is noted bilaterally. 3 mm subpleural calcified granuloma of the medial basal segment right lower lobe. No suspicious nodules or masses identified to suggest pulmonary metastatic disease. Multiple collateral vessels of the upper abdomen redemonstrated. Heterogeneity of the pancreatic body with pancreatic tail ductal dilation redemonstrated. Abdominal peritoneal nodules are redemonstrated. Mild gallbladder distention. Hepatic steatosis. Scattered colonic air-fluid levels. Soft tissues are unremarkable. Bones appear to be intact. Unchanged sclerosis of the right humeral head measuring approximately 2.4 cm. 10 mm sclerotic focus involving the anterior right first rib is unchanged. There is progression of the sclerotic rib metastasis. Multiple vertebral body thoracic metastasis are also noted. No acute pathologic fracture identified. IMPRESSION: 1. Small segmental/subsegmental pulmonary embolus of the right lower lobe. 2. No pathologic adenopathy of the chest. 3. No suspicious pulmonary nodules or masses to suggest pulmonary metastatic disease. 4. Progressive osseous metastatic disease. 5. Heterogeneity of the pancreatic body with pancreatic ductal dilation likely correlates with area of patient's reportedly known pancreatic malignancy. 6. Peritoneal carcinomatosis of the upper abdomen, better evaluated on CT abdomen and pelvis study of same day. 7. Hepatic steatosis. ACT 112: Positive. There are findings on this exam that require communication between the performing entity and the patient following Patient Test Result Inf ormation Act ([place] Act 112) guidelines. Electronically signed by: Nick May M.D. 02/15/2020 3:49 PM Dictated: 02/15/20 1516 Transcribed: 02/15/20 1530 [place], [place] [phone] Ultrasound Report Patient: COMPA ARNOLD Date: 02/15/20 MR#: [id number]: [address] [facility] Acct ID:[id number]: Date: [address] Zip: [place] [address] Age: 34Location: ED Sex: M Room/Bed: Att Phy:Diagnosis: PE Allie Phy: Oleksandr Michelle, MDService Date: 02/15/20 Fam Phy:Interpreting Phy: Jason May Admit Phy: Ordering Phy: David Tinajero DO cc: ~ BILATERAL LOWER EXTREMITY VENOUS DOPPLER HISTORY: Acute pain and swelling of the bilateral lower extremities swelling COMPARISON STUDY: None. FINDINGS: There is normal compressibility, flow, and augmentation within the bilateral lower extremity deep venous systems. IMPRESSION: No DVT within the right or left lower extremity. ACT 112: Negative or not required by law. Electronically signed by: Nick May M.D. 02/15/2020 6:13 PM Dictated: 02/15/201811 Transcribed: 02/15/201811 Code Status & VTE Plan Code Status Full code VTE Prophylaxis Plan VTE Prophylaxis will be ordered: Yes PG Care Time/CCT Total # of Minutes Spent Total Time Spent with Patient: Total time spent is greater than 50% in information systems coordinator rdination of care (as documented) at patient's floor/unit and/or counseling patient: Coding Level of Care Code 30129 Initial Inpt Care Lvl 3 Diagnoses Pulmonary embolism I26.99 Acute cor pulmonale presence: unspecified Chronicity: acute Pulmonary embolism type: unspecified Abnormal EKG R94.31 Primary pancreatic cancer with metastasis to other site C25.9 Supraventricular tachycardia I47.1 Splenic vein thrombosis I82.890 Varices of spleen I86.8 Varices, gastric I86.4 (1) Pulmonary embolism Acute cor pulmonale presence: unspecified Chronicity: acute Pulmonary embolism type: unspecified Qualified Code(s): I26.99 - Other pulmonary embolism without acute cor pulmonale
[2020-02-15] MEDS ORDERED: ENOXAPARIN 100 MG/1ML SYR SQ ONE (20:15)
[2020-02-15] MEDS ORDERED: OXYCODONE HCL IR 5 MG TAB (IMMEDIATE RELEASE) ONE (20:16)
[2020-02-15] MEDS ORDERED: OXYCODONE HCL IR 5 MG TAB (IMMEDIATE RELEASE) PO STA (20:19)
[2020-02-15] MEDS ORDERED: ALUMINUM/MAGNESIUM SUSP 30 ML UDC PO PRN (21:27)
[2020-02-15] MEDS ORDERED: NITROGLYCERIN SL 0.4 MG/TAB TAB SL PRN (21:27)
[2020-02-15] MEDS ORDERED: ACETAMINOPHEN 325 MG TAB PO PRN (21:27)
[2020-02-15] MEDS ORDERED: ONDANSETRON INJ 2 MG/ML 2 ML VIAL IV PRN (21:27)
[2020-02-15] MEDS ORDERED: MAGNESIUM HYDROXIDE SUSP 30 ML UDC PO PRN (21:27)
[2020-02-15] MEDS ORDERED: MoRPHine SULFATE 2 MG/ML CARP IV PRN (21:27)
[2020-02-15] MEDS ORDERED: DENOSUMAB 120 MG SQ SCH (21:27)
[2020-02-15] MEDS: MoRPHine SULFATE CR 15 MG TABCR PO SCH (22:04)
[2020-02-15] MEDS: POTASSIUM CHLORIDE 20 MEQ TABCR PO SCH (22:05)
[2020-02-15] MEDS: POT PHOSPHATE MONOBASIC W/ SOD TAB PO SCH (22:05)
[2020-02-15] MEDS: METOPROLOL SUCC 50MG EXT REL TAB PO SCH (22:05)
[2020-02-15] MEDS: PANTOprazole 40 MG TAB PO SCH (22:06)
[2020-02-15] MEDS: OXYCODONE HCL IR 5 MG TAB (IMMEDIATE RELEASE) PO PRN (23:23)
[2020-02-16] MEDS ORDERED: HEPARIN 100 UNIT/ML 5ML FLUSH FLUSH PRN (00:04)
[2020-02-16] MEDS: OXYCODONE HCL IR 5 MG TAB (IMMEDIATE RELEASE) PO PRN ×2 (03:53→09:39)
[2020-02-16] MEDS ORDERED: ENOXAPARIN 100 MG/1ML SYR SQ SCH (08:00)
[2020-02-16] MEDS: PANTOprazole 40 MG TAB PO SCH (08:12)
[2020-02-16] MEDS: POT PHOSPHATE MONOBASIC W/ SOD TAB PO SCH (08:12)
[2020-02-16] MEDS: METOPROLOL SUCC 50MG EXT REL TAB PO SCH (08:12)
[2020-02-16] MEDS: POTASSIUM CHLORIDE 20 MEQ TABCR PO SCH (08:12)
[2020-02-16] MEDS: MoRPHine SULFATE CR 15 MG TABCR PO SCH (08:14)
[2020-02-16] MEDS ORDERED: CALCIUM CARBONATE 1250MG TAB PO SCH (09:00)
[2020-02-16] MEDS ORDERED: CALCITRIOL 0.25 MCG CAPSULE PO SCH (09:00)
[2020-02-16 11:02] VITALS: BP 124/96; TEMP 98.4; O2SAT 100
--- NOTE | 2020-02-16 11:34 | Electrocardiogram Report ---
Test Reason : Blood Pressure : / mmHG Vent. Rate : 085 BPM Atrial Rate : 085 BPM P-R Int : 118 ms QRS Dur : 102 ms QT Int : 388 ms P-R-T Axes : 025 038 060 degrees QTc Int : 461 ms Normal sinus rhythm Nonspecific T wave abnormality Prolonged QT Abnormal ECG When compared with ECG of 18-JAN-2020 00:11, Nonspecific T wave abnormality, worse in Inferior leads Nonspecific T wave abnormality, worse in Lateral leads Confirmed by Olekasndr Blake ([id number]) on 02/16/2020 11:34:15 AM Referred By: Marco Roberts Confirmed By:Jason Blake
--- NOTE | 2020-02-16 11:37 | Electrocardiogram Report ---
Test Reason : Blood Pressure : / mmHG Vent. Rate : 082 BPM Atrial Rate : 082 BPM P-R Int : 130 ms QRS Dur : 098 ms QT Int : 382 ms P-R-T Axes : 050 048 054 degrees QTc Int : 446 ms Normal sinus rhythm Nonspecific T wave abnormality Abnormal ECG When compared with ECG of 15-FEB-2020 17:28, (unconfirmed) Nonspecific T wave abnormality, improved in Lateral leads Confirmed by Oleksandr Blake ([id number]) on 02/16/2020 11:37:17 AM Referred By: Marco Roberts Confirmed By:Jason Blake
[2020-02-16 12:21] VITALS: PULSE 86
--- NOTE | 2020-02-16 12:59 | Cardiology Consultation ---
Date of Consultation February 16, 2020 Assessment & Plan (1) Pulmonary embolism: (2) Supraventricular tachycardia: (3) Abnormal EKG: Echo reveals normal biventricular function. No RV strain. No recurrence of SVT on telemetry. Continue prior to hospital treatment metoprolol. Denies chest pain. Mild repolarization changes. Would recommend anticoagulation for the PE. Risk of underlying CAD is felt to be low. No further cardiac testing indicated at present. History of Present Illness Attending Physician: Gerardo Gallegos MD History of Present Illness Mr Parisi is a 34 year old male seen in cardiology consultation due to concerns of repolarization changes on his EKG. He has a history of metastatic pancreatic carcinoma. He was hospitalized about a month ago early January, at which time he was found to have paroxysmal supraventricular tachycardia with rapid ventricular response. He was seen in consultation by Dr. Vazquez of our practice at that time, and ongoing treatment with metoprolol was recommended. He was referred to the ED on 02/15/20. Per the request of his oncologist he had undergone a follow-up CT and reassessment of his history of pancreatic carcinoma and he was found to have a small segmental, and subsegmental pulmonary embolism of the right lower lobe. At the time of my assessment at the bedside on 02/16/2020, the patient denied any recent or current chest discomfort, lightheadedness or dizziness. Denied any shortness of breath. Allergies Allergy/AdvReac Type Severity Reaction Status Date / Time No Known Allergies Allergy Verified 02/15/20 18:43 Home Medications Home Medications Medication Instructions Recorded Confirmed Type oxycodone 5 mg PO Q6H PRN 12/29/18 02/15/20 History potassium chloride 10 meq PO BID 03/19/19 02/15/20 History denosumab 120 mg/1.7 mL (70 mg/mL) 120 mg SQ MONTHLY ml 11/06/19 02/15/20 History subcutaneous solution morphine 30 mg tablet,extended 30 mg PO Q12H 11/06/19 02/15/20 History release K-Phos Original 500 mg PO BID 01/17/20 02/15/20 History calcitriol 0.5 mcg PO QAM 01/17/20 02/15/20 History fluorouracil 2.5 g IV DIRECTED 01/18/20 02/15/20 History omeprazole 20 mg PO BID 01/18/20 02/15/20 History ondansetron HCl [Zofran] 8 mg PO DIRECTED PRN 01/18/20 02/15/20 History prochlorperazine maleate 10 mg PO DIRECTED PRN 01/18/20 02/15/20 History [Compazine] calcium carbonate 1,200 mg PO BID 02/15/20 02/15/20 History metoprolol succinate [Toprol XL] 50 mg PO BID 02/15/20 02/15/20 History apixaban 10 mg PO BID #74 ea 02/16/20 Rx Patient History Medical History Abnormal CT of the abdomen (Chronic) Done for LLQ pain evaluation. Showed innumerable peritoneal and mesenteric nodules. Possible pancreatitis, possible diverticulitis, though both ruled "unlikely" per radiology. Abnormal ECG Central venous catheter in place (Inactive) Elevated heart rate with elevated blood pressure without diagnosis of hypertension Hypocalcemia (Inactive) Hypokalemia (Inactive) Hypomagnesemia (Inactive) Hypophosphatemia Muscle spasm (Inactive) Pancreatic cancer metastasized to intra-abdominal lymph node (Inactive) Paroxysmal supraventricular tachycardia (Resolved) Prolonged Q-T interval on ECG Symptomatic anemia (Inactive) Family History Father FHx: coronary artery disease, Onset Age: 65 CABG X3 Grandfather (Maternal) Colorectal cancer Grandmother (Maternal) Breast cancer Mother No problems noted. Brother No problems noted. Social History Smoking Status: Never smoker Second Hand Exposure: No; Hx Alcohol Use: No Hx Substance Use: No Preferred Language: Anguillan Communication Ability: Effective Senior Linux Administrator Required: No Beliefs That Will Affect Care: None marital status: Single Current Living Situation: Family current occupational status: retired and disabled current occupation: contruction sales Feels Safe at Home: Yes Childhood Exposure to Second-Hand Smoke: No caffeine: Yes (occ cola ) during the past year weight has: other Dental Care, Regularly: Yes Physical Activity Frequency: Does not Exercise Seatbelt Use: always Sunscreen Use: Yes Physical Exam Physical Exam: Temp Pulse Resp BP Pulse Ox 36.9 C 86 18 124/96 100 02/16/20 12:20 02/16/20 12:20 02/16/20 12:20 02/16/20 12:20 02/16/20 12:20 ENMT: Hoarse voice noted, he states this has been present since initiating chemotherapy and is not an acute finding Respiratory: normal respiratory effort, lungs clear to auscultation Cardiovascular: RRR, no murmur, no edema Gastrointestinal (Abdomen): normal bowel sounds, soft, nontender, no hepatosplenomegaly Neurologic: PERRL, EOMI, accommodation nl, no face palsy, no dysarthria Results & Data ([facility]) Vital Signs (Past 12 Hours) Vital Signs Temp Pulse Pulse Pulse Resp BP BP 02/16/20 12:20 36.9 C 86 95 H 18 124/96 135/96 02/16/20 11:00 36.9 C 95 H 18 124/96 02/16/20 07:32 83 02/16/20 07:03 36.8 C 86 16 135/96 02/16/20 03:27 37 C 87 16 139/98 Pulse Ox 02/16/20 12:20 100 02/16/20 11:00 100 02/16/20 07:32 02/16/20 07:03 96 02/16/20 03:27 97 Laboratory Results EKG performed 03/13/2020 at 1728 and reviewed independently revealed normal sinus rhythm at 85 bpm, with nonspecific T wave abnormality noted in the inferior and lateral leads. Compared to 01/18/2020, the repolarization abnormality is slightly more prominent. Repeat tracing performed 02/16/2020 at 6:36 AM revealed normal sinus rhythm with mild nonspecific repolarization changes, improved compared to the previous. Sinus rhythm without recurrent supraventricular tachycardia noted on telemetry. Echocardiogram performed 02/16/2020: A focused study was performed in reassessment of biventricular function and to exclude pulmonary hypertension given recent diagnosis of pulmonary embolism on CT. The biventricular systolic function was normal, LVEF 55-60. Trace tricuspid regurgitation noted without evidence of pulmonary hypertension. Normal right atrial pressure noted based on inferior vena cava diameter and collapsibility with inspiration. (1) Pulmonary embolism Acute cor pulmonale presence: unspecified Chronicity: acute Pulmonary embolism type: unspecified Qualified Code(s): I26.99 - Other pulmonary embolism without acute cor pulmonale
--- NOTE | 2020-02-16 17:33 | Discharge Summary ---
Date of Service February 16, 2020 Admission HPI Per Admitting Provider The patient is a 34-year-old male with a past medical history of pancreatic cancer, presently undergoing chemotherapy, who presents to the emergency department at the request of his oncologist due to a pulmonary embolism being found and the right lower lobe on a outpatient CTA of chest, abdomen and pelvis. Principal Diagnosis Pulmonary embolism Discharge Exam Constitutional WD/WN, vitals as above Eyes EOM intact bilaterally; no conjunctival abnormality ENMT external ear and nose normal, oropharynx normal Neck trachea midline, no thyromegaly normal visual inspection Respiratory normal respiratory effort, lungs clear to auscultation no respiratory distress Cardiovascular RRR, no murmur, no edema Gastrointestinal (Abdomen) Inspection/Auscultation: abdomen normal to inspection; abdomen not distended Musculoskeletal no cyanosis or clubbing, extremities motor strength 5/5 Skin no rashes, warm and dry Neurologic moves all extremities and awake Psychiatric Orientation: alert, oriented to person and cooperative Discharge Data Allergies Allergy/AdvReac Type Severity Reaction Status Date / Time No Known Allergies Allergy Verified 02/15/20 18:43 Consultations 02/15/20 18:56 ED Decision to Admit Stat 02/15/20 21:27 Consult Cardiology Routine Consult Case Management - Discharge Planning Routine Ordered Studies 02/15/20 17:01 US venous doppler [facility] Stat Hospital Course (1) Pulmonary embolism: The patient was referred to the ED by his oncologist due to a CTA of the chest, abdomen and pelvis in the outpatient setting showing a pulmonary embolism in the right lower lobe pulmonary artery. The patient is started on Lovenox 1 mg/kg subcu in the ED tonight. - Discussed with Dr. Roberts who felt that apixaban was appropriate. Patient had no strain on echo and felt well. Discharged home on apixaban 10 mg PO BID x 1 week, then 5 mg PO BID. Pharmacy coverage was checked prior to discharge. Patient felt well and was ready to go. (2) Abnormal EKG: EKG shows inferior or lateral mild ST depressions, slightly progressed from previous./History of SVT- The patient will be admitted to telemetry for serial cardiac enzymes, serial EKG's, cardiac rhythm monitoring. Troponin is normal at this time, with no immediate suggestion of right heart strain. - Seen by cardiology without concern. As above, echo showed no right heart strain. Cleared for discharge. (3) Primary pancreatic cancer with metastasis to other site: Primary pancreatic cancer with metastases/splenic vein thrombosis/perisplenic and perigastric varices- Presently undergoing chemotherapy. CT does show overall modest progression of retroperitoneal and peritoneal metastatic disease as compared to 10/28/2019 Will need long-term anticoagulation. Mode of any coagulation can be determined by his offline editor/oncologist along with treatment for right lower lobe pulmonary artery embolism. (4) Supraventricular tachycardia: See above. Continue metoprolol tartrate 50 mg p.o. twice daily. 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 Michelle's office) Diet: Regular Addtl Attending Provider Instructions: You were admitted to the hospital for a small blood clot in the lungs called a pulmonary embolism. We are starting you on a blood thinner called Eliquis (apixaban) which will help dissolve this blood clot. Please take it 2 times per day with the first dose tonight before bedtime. You will take 10 mg (2 tabs) for 1 week, then drop it to 5 mg (1 tab) twice a day after that. Please DO NOT skip doses of the Eliquis as this can actually make you paradoxically more likely to make a blood clot. Please see Dr. Roberts in the clinic next week. Pending Studies at Discharge: No Stand-Alone Forms: My bMobilized, Smoking Cessation Medications and DC Order Prescriptions: New apixaban 5 mg (74 tabs) tablets,dose pack 10 mg PO BID Qty: 74 RF: 0 Continued morphine [MS Contin] 30 mg tablet extended release 30 mg PO Q12H RF: 0 Xgeva 120 mg/1.7 mL (70 mg/mL) solution 120 mg SQ MONTHLY RF: 0 oxycodone 5 mg Tablet 5 mg PO Q6H PRN (Reason: Pain) RF: 0 potassium chloride 10 mEq Tablet Extended Release 10 meq PO BID RF: 0 calcitriol 0.5 mcg capsule 0.5 mcg PO QAM RF: 0 K-Phos Original 500 mg tablet,soluble 500 mg PO BID RF: 0 omeprazole 20 mg capsule,delayed release(DR/EC) 20 mg PO BID RF: 0 fluorouracil 2.5 gram/50 mL solution 2.5 g IV DIRECTED RF: 0 ondansetron HCl [Zofran] 8 mg Tablet 8 mg PO DIRECTED PRN (Reason: Nausea) RF: 0 prochlorperazine maleate [Compazine] 10 mg Tablet 10 mg PO DIRECTED PRN (Reason: Nausea) RF: 0 calcium carbonate 600 mg calcium (1,500 mg) Tablet 1,200 mg PO BID RF: 0 metoprolol succinate [Toprol XL] 25 mg tablet extended release 24 hr 50 mg PO BID RF: 0 Discharge Orders: Discharge Order (Routine); Ordered 02/16/20 Ordered By: Gerardo Noyola/Other Patient Handouts: Pulmonary Embolism, Apixaban oral tablets Admission Data Admit Date/Time: 02/15/20 20:08 Attending Provider: Gerardo Gallegos Admit Provider: Ganag Mayorga Primary Care Provider: Umer Michelle Other Providers: Ubaldo Vazquez ; Gerardo Gallegos Other Interventions: Discharge Summary Assessment (RN) Last Done: 02/16/20 12:20 DC Date/Time DO NOT enter until pt leaves facility: 02/16/20 13:41 Coding Level of Care Code 01915 OBS Care - Discharge Diagnoses Pulmonary embolism I26.99 Acute cor pulmonale presence: unspecified Chronicity: acute Pulmonary embolism type: unspecified Abnormal EKG R94.31 Primary pancreatic cancer with metastasis to other site C25.9 Supraventricular tachycardia I47.1 Splenic vein thrombosis I82.890 Varices of spleen I86.8 Varices, gastric I86.4
== END 2020-02-16 13:41 | disposition home or self-care (01) ==
LOC: ED 16:24 → 2E 16:24 → SUATTDRO 20:08 → 2E 20:55